=== PATIENT | female | born 1960 | race Caucasian/White ===

== ENCOUNTER 2016-03-03 14:44 | Emergency (ER) | payer OTHER ==
[2016-03-03] MEDS ORDERED: UNASYN 1.5 GM VIAL As Ordered ONE (15:18)
[2016-03-03] MEDS ORDERED: MORPHINE 4 MG/ML 1ML SYRINGE As Ordered ONE (15:19)
[2016-03-03] MEDS ORDERED: ATENOLOL 25 MG TAB As Ordered ONE (15:19)
[2016-03-03] MEDS ORDERED: LISINOPRIL 10 MG TAB As Ordered ONE (15:19)
[2016-03-03] MEDS ORDERED: ONDANSETRON 4MG/2ML VIAL (J2405) As Ordered ONE (15:29)
[2016-03-03 15:31] LABS: BASO % 0.2 % (0.0-1.0); EOS # 0.2 K/mm3 (0.0-0.50); EOS % 1.4 % (0.0-3.0); LARGE UNSTAINED CELL # 0.1 K/mm3 (0.0-0.4); LARGE UNSTAINED CELL % 0.9 % (0.0-4.0); LYMPH # 1.3 K/mm3 (1.5-4.5); LYMPH % 12.1 % (24.0-44.0); MEAN CORPUSCULAR HEMOGLOBIN 32.2 pg (27.0-33.0); MEAN CORPUSCULAR HGB CONC 33.9 g/dl (32.0-36.5); MEAN CORPUSCULAR VOLUME 95.1 fl (80.0-96.0); MONO # 0.2 K/mm3 (0.0-0.8); MONO % 1.5 % (0.0-5.0); NEUTROPHILS # 9.3 K/mm3 (1.8-7.7); NEUTROPHILS % 83.8 % (36.0-66.0); PLATELET COUNT, AUTOMATED 317 k/mm3 (150-450); RED CELL DISTRIBUTION WIDTH 12.9 % (11.5-14.5); WHITE BLOOD COUNT 11.1 K/mm3 (4.0-10.0)
[2016-03-03 15:44] LABS: ANION GAP 13 MEQ/L (8-16); BLOOD UREA NITROGEN 8 MG/DL (7-18); CALCIUM LEVEL 9.9 MG/DL (8.5-10.1); CARBON DIOXIDE LEVEL 27 MEQ/L (21-32); CHLORIDE LEVEL 99 MEQ/L (98-107); CREATININE FOR GFR 0.84 MG/DL (0.55-1.02); GLOMERULAR FILTRATION RATE > 60.0 (>51); GLUCOSE, FASTING 125 MG/DL (70-105); POTASSIUM SERUM 3.5 MEQ/L (3.5-5.1); SODIUM LEVEL 139 MEQ/L (136-145)
[2016-03-03] MEDS ORDERED: ISOVUE-370 76% 100ML VIAL (Q9967) As Ordered ONE (15:51)
[2016-03-03 16:11] LABS: ERYTHROCYTE SEDIMENTATION RATE 26 mm/hr (0-30)
--- NOTE | 2016-03-03 16:45 | EDDOCDS ---
Nurse's Notes [facility] Name: Nicole Engel Age: 55 yrs Sex: Female : 1960 Arrival Date: 03/03/2016 Time: 14:44 Bed I2 / M2 Private MD: No Pcp Diagnosis: Periapical abscess without sinus-phlegmon left mandible, widespread dental caries Presentation: 03/03 14:48 Presenting complaint: Patient states: dental infection and has been ongoing for 2 hs1 weeks. Pt at [facility] for teeth removal and was sent here because they stated her blood pressure was too high. Patient states she was also sent here for antibiotics. Adult Sepsis Screening: The patient does not have new or worsening altered mentation. Patient's respiratory rate is less than 22. Systolic blood pressure is greater than 100. Patient has a qSOFA score of 0- Negative Sepsis Screen. Suicide/Homicide risk assessment- the patient denies having any suicidal and/or homicidal ideations and does not present with any other emotional, behavioral or mental health complaints. Status: Patient is not a professional services manager or dependent. Transition of care: patient was received from [facility] . 14:48 Acuity: JAZMIN Level 3 hs1 14:48 Method Of Arrival: Walkin/Carried/Asstd hs1 Triage Assessment: 14:52 General: Appears in no apparent distress, Behavior is appropriate for age, cooperative. hs1 Pain: Location: mouth Pain currently is 10 out of 10 on a pain scale. Quality of pain is described as throbbing. Respiratory: Airway is patent Respiratory effort is even, unlabored. 14:53 Pt Declines HIV testing. hs1 Historical: - Allergies: No known drug Allergies; - Home Meds: 1. lisinopril 10 mg Oral tab 1 tab once daily (Last dose: 03/02/2016) 2. atenolol 25 mg Oral tab 1 tab once daily (Last dose: 03/02/2016) - PMHx: Hypertension; - PSHx: none; - Social history: Smoking status: Patient states was never smoker of tobacco. No barriers to communication noted, The patient speaks fluent [place] Islander, Speaks appropriately for age. - Family history: Not pertinent. - : The pt / caregiver states he / she is not on anticoagulants. Home medication list is obtained from the patient. - Exposure Risk Screening:: None identified. Screenin:54 Screening information is obtained from the patient. Fall risk: No risks identified. hs1 Assistance ADL's: requires no assistance with activities of daily living. Abuse/DV Screen: The patient / caregiver reports he/she is: not in a situation that causes fear, pain or injury. Nutritional screening: No deficits noted. Advance Directives: There is no active DNR order. home support is adequate. Assessment: 15:32 General: Appears in no apparent distress, comfortable, Behavior is appropriate for age, jmb cooperative. Pain: Location: mouth Pain currently is 10 out of 10 on a pain scale. Neurological: Level of Consciousness is awake, alert, obeys commands, Oriented to person, place, time, Bioinformatics Analyst are equal bilaterally Speech is normal, Facial symmetry appears normal. Cardiovascular: Capillary refill < 3 seconds Heart tones present Pulses are all present. Respiratory: Airway is patent Respiratory effort is even, unlabored, Respiratory pattern is regular, symmetrical, Breath sounds are clear bilaterally. GI: Abdomen is non- distended Bowel sounds present X 4 quads. Abd is soft X 4 quads. Derm: Skin is normal. Musculoskeletal: Range of motion intact in all extremities. 16:20 General: Appears in no apparent distress, Behavior is cooperative. Neurological: No mcp deficits noted. Respiratory: Airway is patent Respiratory effort is even, unlabored. Derm: Skin is pink, warm & dry. Vital Signs: 14:45 BP 188 / 114; Pulse 120; Resp 18 S; Temp 97.3(O); Pulse Ox 95% on R/A; Weight 81.65 kg dd6 (R); Height 5 ft. 4 in. (162.56 cm) (R); 16:00 Pain 4/10; mcp 16:26 BP 167 / 98; Pulse 98; Resp 18; Temp 98.9; Pulse Ox 98% ; Pain 5/10; jam1 14:45 Body Mass Index 30.90 (81.65 kg, 162.56 cm) dd6 Vitals: 14:45 Log In Time: March 03, 2016 at 14:43. dd6 ED Course: 14:45 Patient visited by Mikael Quintana PCA. dd6 14:45 No Pcp is Private Physician. dd6 14:45 Patient moved to Waiting dd6 14:46 Patient moved to Pre RCE dd6 14:50 Triage Initiated hs1 14:54 Patient moved to Triage 3 hs1 14:55 Donovan Ojeda PA-C is PHCP. ar2 14:55 Elisha Yousif MD is Attending Physician. ar2 14:55 Patient visited by Donovan Ojeda PA-C. ar2 15:04 Patient moved to I2 / M2 ms18 15:16 CBC with Diff Sent. jmb 15:16 MED Profile Sent. jmb 15:16 Sed Rate Sent. jmb 15:16 CRP Sent. jmb 15:32 The patient / caregiver is instructed regarding the plan of care and ED course. jmb 15:32 Inserted saline lock: 20 gauge in right antecubital area and blood collected. The jmb patient tolerated the procedure well. Labs drawn. (by ED staff). Sent per order to lab. 15:33 Patient visited by Wilber Montez RN. jmb 15:45 [facility] Payment Agreement was scanned into [employer] and attached to record. zo 16:25 Robby White MD is Referral Physician. ar2 16:42 Discontinued lock intact, bleeding controlled, pressure dressing applied, No mcp redness/swelling at site. No procedures done that require assistance. Administered Medications: 15:31 Drug: Ampicillin-Sulbactam Sodium 3 grams [ampicillin-sulbactam 1.5 gram solution for jmb injection] Route: IVPB; Infused Over: 30 mins; Site: right antecubital; 16:30 Follow up: IV Status: Completed infusion; IV Intake: 100ml mcp 15:31 Drug: NS 0.9% 1000 ml [sodium chloride 0.9 % intravenous solution] Route: IV; Rate: jmb bolus; Site: right antecubital; 16:39 Follow up: IV Status: Infusion discontinued; IV Intake: 900ml mcp 15:31 Drug: Lisinopril 10 mg [lisinopril 10 mg tablet (1 tabs)] Route: PO; jmb 15:31 Drug: Atenolol 25 mg [atenolol 25 mg tablet (1 tabs)] Route: PO; jmb 15:31 Drug: morphine 4 mg [morphine 4 mg/mL intravenous cartridge (1 mL)] Route: IVP; Site: jmb right antecubital; 16:00 Follow up: Pain 4/10 Adult; Response: Pain is decreased mcp 15:31 Drug: Ondansetron 4 mg [ondansetron HCl 2 mg/mL intravenous solution (2 mL)] Route: jmb IVP; Site: right antecubital; Intake: 16:30 IV: 100.00ml; Total: 100.00ml. mcp 16:39 IV: 900.00ml; Total: 1000.00ml. mcp Order Results: Lab Order: CBC with Diff; SPEC'M 03/03/16 15:14 Test: WHITE BLOOD COUNT; Value: 11.1; Range: 4.0-10.0; Abnormal: Above high normal; Units: K/mm3; Status: F Test: RED BLOOD COUNT; Value: 4.51; Range: 4.00-5.40; Units: M/mm3; Status: F Test: HEMOGLOBIN; Value: 14.5; Range: 12.0-16.0; Units: g/dl; Status: F Test: HEMATOCRIT; Value: 42.9; Range: 36.0-47.0; Units: %; Status: F Test: MEAN CORPUSCULAR VOLUME; Value: 95.1; Range: 80.0-96.0; Units: fl; Status: F Test: MEAN CORPUSCULAR HEMOGLOBIN; Value: 32.2; Range: 27.0-33.0; Units: pg; Status: F Test: MEAN CORPUSCULAR HGB CONC; Value: 33.9; Range: 32.0-36.5; Units: g/dl; Status: F Test: RED CELL DISTRIBUTION WIDTH; Value: 12.9; Range: 11.5-14.5; Units: %; Status: F Test: PLATELET COUNT, AUTOMATED; Value: 317; Range: 150-450; Units: k/mm3; Status: F Test: NEUTROPHILS %; Value: 83.8; Range: 36.0-66.0; Abnormal: Above high normal; Units: %; Status: F Test: LYMPH %; Value: 12.1; Range: 24.0-44.0; Abnormal: Below low normal; Units: %; Status: F Test: MONO %; Value: 1.5; Range: 0.0-5.0; Units: %; Status: F Test: EOS %; Value: 1.4; Range: 0.0-3.0; Units: %; Status: F Test: BASO %; Value: 0.2; Range: 0.0-1.0; Units: %; Status: F Test: LARGE UNSTAINED CELL %; Value: 0.9; Range: 0.0-4.0; Units: %; Status: F Test: NEUTROPHILS #; Value: 9.3; Range: 1.8-7.7; Abnormal: Above high normal; Units: K/mm3; Status: F Test: LYMPH #; Value: 1.3; Range: 1.5-4.5; Abnormal: Below low normal; Units: K/mm3; Status: F Test: MONO #; Value: 0.2; Range: 0.0-0.8; Units: K/mm3; Status: F Test: EOS #; Value: 0.2; Range: 0.0-0.50; Units: K/mm3; Status: F Test: BASO #; Value: 0.0; Range: 0.0-0.2; Units: K/mm3; Status: F Test: LARGE UNSTAINED CELL #; Value: 0.1; Range: 0.0-0.4; Units: K/mm3; Status: F Lab Order: [facility] Profile; SPEC'M 03/03/16 15:14 Test: GLUCOSE, FASTING; Value: 125; Range: 70-105; Abnormal: Above high normal; Units: MG/DL; Status: F Test: BLOOD UREA NITROGEN; Value: 8; Range: 7-18; Units: MG/DL; Status: F Test: CREATININE FOR GFR; Value: 0.84; Range: 0.55-1.02; Units: MG/DL; Status: F Test: GLOMERULAR FILTRATION RATE; Value: > 60.0; Range: >51; Status: F Test: SODIUM LEVEL; Value: 139; Range: 136-145; Units: MEQ/L; Status: F Test: POTASSIUM SERUM; Value: 3.5; Range: 3.5-5.1; Units: MEQ/L; Status: F Test: CHLORIDE LEVEL; Value: 99; Range: 98-107; Units: MEQ/L; Status: F Test: CARBON DIOXIDE LEVEL; Value: 27; Range: 21-32; Units: MEQ/L; Status: F Test: ANION GAP; Value: 13; Range: 8-16; Units: MEQ/L; Status: F Test: CALCIUM LEVEL; Value: 9.9; Range: 8.5-10.1; Units: MG/DL; Status: F Test Note: ; Units are mL/min/1.73 m2 Chronic Kidney Disease Staging per NKF: Stage I & II GFR >=60 Normal to Mildly Decreased Stage III GFR 30-59 Moderately Decreased Stage IV GFR 15-29 Severely Decreased Stage V GFR <15 Very Little GFR Left ESRD GFR <15 on SAMPLE [employer]ER ORIGINAL Lab Order: Sed Rate; SPEC'M 03/03/16 15:14 Test: ERYTHROCYTE SEDIMENTATION RATE; Value: 26; Range: 0-30; Units: mm/hr; Status: F Lab Order: CRP; SPEC'M 03/03/16 15:14 Test: C REACTIVE PROTEIN QUANTITATIV; Value: 1.44; Range: 0.00-0.30; Abnormal: Above high normal; Units: MG/DL; Status: F Outcome: 16:26 Discharge ordered by Provider. ar2 16:43 Discharge Assessment: patient administered narcotics - yes. Pt provided with safe mcp discharge. The following High Risk Discharge criteria are identified: None. Discharged to home ambulatory. Condition: stable. Discharge instructions given to patient, Instructed on discharge instructions, follow up and referral plans. medication usage, Demonstrated understanding of instructions, medications, Pt was receptive of discharge instructions/ teaching. Prescriptions given X 4. CT Study completed. Property sent home with patient. 16:44 Patient left the ED. [facility] Signatures: Brigette Walton RN RN mcp Murphy, Jane, CROSS TIE TURNER CROSS TIE TURNER jam1 Duy Hernandez Aaron, PA-C PADenver ar2 Mikael Quintana, CROSS TIE TURNER CROSS TIE TURNER dd6 Heike Mccartney RN RN hs1 Wilber Montez RN RN Kavya NatarajanRN RN ms18 MTDD
--- NOTE | 2016-03-03 16:45 | EDDOCDS ---
Physician Documentation [facility] Name: Nicole Engel Age: 55 yrs Sex: Female : 1960 Arrival Date: 03/03/2016 Time: 14:44 Bed I2 / M2 Private MD: No Pcp Disposition: 03/03/16 16:26 Discharged to Home/Self Care. Impression: Periapical abscess without sinus - phlegmon left mandible, widespread dental caries. - Condition is Stable. - Discharge Instructions: Dental Abscess, Dental Pain. - Prescriptions for Augmentin 875- 125 mg Oral Tablet - take 1 tablet by ORAL route every 12 hours for 10 days; 20 tablet. Ibuprofen 800 mg Oral Tablet - take 1 tablet by ORAL route every 8 hours As needed take with food; 30 tablet. Tylenol- Codeine #3 300-30 mg Oral Tablet - take 2 tablet by ORAL route every 6 hours As needed MDD: 4 tabs; 30 tablet. ZOFRAN ODT 4 mg - dissolve 1 tablet by ORAL route 4 times per day As needed do not chew, do not swallow whole; 10 tablet. - Medication Reconciliation, Local Pharmacy Hours form. - Follow up: Robby White MD; When: Call to arrange an appointment; Reason: Recheck today's complaints. Follow up: Emergency Department; When: As needed; Reason: Worsening of conditions. - Problem is new. - Symptoms have improved. Historical: - Allergies: No known drug Allergies; - Home Meds: 1. lisinopril 10 mg Oral tab 1 tab once daily (Last dose: 03/02/2016) 2. atenolol 25 mg Oral tab 1 tab once daily (Last dose: 03/02/2016) - PMHx: Hypertension; - PSHx: none; - Social history: Smoking status: Patient states was never smoker of tobacco. No barriers to communication noted, The patient speaks fluent Czech, Speaks appropriately for age. - Family history: Not pertinent. - : The pt / caregiver states he / she is not on anticoagulants. Home medication list is obtained from the patient. - Exposure Risk Screening:: None identified. Vital Signs: 03/03 14:45 BP 188 / 114; Pulse 120; Resp 18 S; Temp 97.3(O); Pulse Ox 95% on R/A; Weight 81.65 kg dd6 / 180.01 lbs (R); Height 5 ft. 4 in. (162.56 cm) (R); 16:00 Pain 4/10; mcp 16:26 BP 167 / 98; Pulse 98; Resp 18; Temp 98.9; Pulse Ox 98% ; Pain 5/10; jam1 14:45 Body Mass Index 30.90 (81.65 kg, 162.56 cm) dd6 MDM: 15:02 IV Saline Lock ordered. ar2 15:02 Ampicillin-Sulbactam Sodium 3 grams IVPB once over 30 mins; dilute in 100mL of NS or ar2 D5W ordered. 15:02 NS 0.9% 1000 ml IV at bolus once ordered. ar2 15:02 Lisinopril 10 mg PO once ordered. ar2 15:02 Atenolol 25 mg PO once ordered. ar2 15:04 CBC with Diff Ordered. EDMS 15:04 MED Profile Ordered. EDMS 15:04 Sed Rate Ordered. EDMS 15:04 CRP Ordered. EDMS 15:06 morphine 4 mg IVP once ordered. ar2 15:29 Ondansetron 4 mg IVP once ordered. ar2 15:42 Financial registration complete. zo 15:45 [facility] [place] Agreement was scanned into [employer] and attached to record. zo 15:48 CBC with Diff Reviewed. ar2 15:48 MED Profile Reviewed. ar2 15:48 CRP Reviewed. ar2 15:49 Vital Signs ordered. ar2 15:49 CT Neck With Contrast Ordered. EDMS Administered Medications: 15:31 Drug: Ampicillin-Sulbactam Sodium 3 grams [ampicillin-sulbactam 1.5 gram solution for jmb injection] Route: IVPB; Infused Over: 30 mins; Site: right antecubital; 16:30 Follow up: IV Status: Completed infusion; IV Intake: 100ml mcp 15:31 Drug: NS 0.9% 1000 ml [sodium chloride 0.9 % intravenous solution] Route: IV; Rate: jmb bolus; Site: right antecubital; 16:39 Follow up: IV Status: Infusion discontinued; IV Intake: 900ml mcp 15:31 Drug: Lisinopril 10 mg [lisinopril 10 mg tablet (1 tabs)] Route: PO; jmb 15:31 Drug: Atenolol 25 mg [atenolol 25 mg tablet (1 tabs)] Route: PO; jmb 15:31 Drug: morphine 4 mg [morphine 4 mg/mL intravenous cartridge (1 mL)] Route: IVP; Site: b right antecubital; 16:00 Follow up: Pain 4/10 Adult; Response: Pain is decreased [facility] 15:31 Drug: Ondansetron 4 mg [ondansetron HCl 2 mg/mL intravenous solution (2 mL)] Route: jmb IVP; Site: right antecubital; Signatures: Dispatcher [employer] Brigette Love RN RN [facility] Duy Hernandez Aaron, PA-C PA-Lucia ar2 Heike Mccartney RN RN hs1 Wilber Montez RN The chart was reviewed and I authenticate all verbal orders and agree with the evaluation and treatment provided.Attachments: 15:45 [facility] Payment Agreement zo MTDD
--- NOTE | 2016-03-03 18:04 | REP ---
CT NECK WITH CONTRAST: HISTORY: Rule out abscess. There is soft-tissue thickening along the buccal surface of the body and of the left mandible and symphysis . This represents a phlegmon. There is thickening of the left platysmal muscle and stranding in the overlying subcutaneous tissue consistent with edema. The naso-, sisi,- and hypopharynx, larynx and subglottic trachea are normal in appearance. The salivary and thyroid glands are normal. Small lymph nodes less than 1 cm in size are present in the internal jugular chains, posterior triangles, submandibular and submental areas. Minimal degenerative change is present in the cervical spine. The lung apices are clear. A punctate calcification is present in the sella turcica. Periapical lucency is present involving the second molar tooth of the left mandible. There are possible dental caries involving the first premolar and left second molar teeth of the left mandible and second premolar tooth of the right mandible. IMPRESSION: There is soft tissue thickening along the buccal surface of the body of the left mandible and mandibular symphysis consistent with a phlegmon. Signed by Anatoliy Vegas MD 03/04/2016 08:45 A
[2016-03-03] MEDS ORDERED: NORCO 5/325MG TABLET (BULK) As Ordered ONE (18:18)
--- NOTE | 2016-03-03 18:24 | EDDOCDS ---
Nurse's Notes [facility] Name: Nicole Engel Age: 55 yrs Sex: Female : 1960 Arrival Date: 03/03/2016 Time: 14:44 Bed PR Private MD: No Pcp Diagnosis: Periapical abscess without sinus-phlegmon left mandible, widespread dental caries Presentation: 03/03 14:48 Presenting complaint: Patient states: dental infection and has been ongoing for 2 hs1 weeks. Pt at [facility] for teeth removal and was sent here because they stated her blood pressure was too high. Patient states she was also sent here for antibiotics. Adult Sepsis Screening: The patient does not have new or worsening altered mentation. Patient's respiratory rate is less than 22. Systolic blood pressure is greater than 100. Patient has a qSOFA score of 0- Negative Sepsis Screen. Suicide/Homicide risk assessment- the patient denies having any suicidal and/or homicidal ideations and does not present with any other emotional, behavioral or mental health complaints. Status: Patient is not a maintenance service dispatcher or dependent. Transition of care: patient was received from Dental Office - [facility] . 14:48 Acuity: JAZMIN Level 3 hs1 14:48 Method Of Arrival: Walkin/Carried/Asstd hs1 Triage Assessment: 14:52 General: Appears in no apparent distress, Behavior is appropriate for age, cooperative. hs1 Pain: Location: mouth Pain currently is 10 out of 10 on a pain scale. Quality of pain is described as throbbing. Respiratory: Airway is patent Respiratory effort is even, unlabored. 14:53 Pt Declines HIV testing. hs1 Historical: - Allergies: No known drug Allergies; - Home Meds: 1. lisinopril 10 mg Oral tab 1 tab once daily (Last dose: 03/02/2016) 2. atenolol 25 mg Oral tab 1 tab once daily (Last dose: 03/02/2016) - PMHx: Hypertension; - PSHx: none; - Social history: Smoking status: Patient states was never smoker of tobacco. No barriers to communication noted, The patient speaks fluent Thai, Speaks appropriately for age. - Family history: Not pertinent. - : The pt / caregiver states he / she is not on anticoagulants. Home medication list is obtained from the patient. - Exposure Risk Screening:: None identified. Screenin:54 Screening information is obtained from the patient. Fall risk: No risks identified. hs1 Assistance ADL's: requires no assistance with activities of daily living. Abuse/DV Screen: The patient / caregiver reports he/she is: not in a situation that causes fear, pain or injury. Nutritional screening: No deficits noted. Advance Directives: There is no active DNR order. home support is adequate. Assessment: 15:32 General: Appears in no apparent distress, comfortable, Behavior is appropriate for age, jmb cooperative. Pain: Location: mouth Pain currently is 10 out of 10 on a pain scale. Neurological: Level of Consciousness is awake, alert, obeys commands, Oriented to person, place, time, Head Tennis Coach are equal bilaterally Speech is normal, Facial symmetry appears normal. Cardiovascular: Capillary refill < 3 seconds Heart tones present Pulses are all present. Respiratory: Airway is patent Respiratory effort is even, unlabored, Respiratory pattern is regular, symmetrical, Breath sounds are clear bilaterally. GI: Abdomen is non- distended Bowel sounds present X 4 quads. Abd is soft X 4 quads. Derm: Skin is normal. Musculoskeletal: Range of motion intact in all extremities. 16:20 General: Appears in no apparent distress, Behavior is cooperative. Neurological: No mcp deficits noted. Respiratory: Airway is patent Respiratory effort is even, unlabored. Derm: Skin is pink, warm & dry. Vital Signs: 14:45 BP 188 / 114; Pulse 120; Resp 18 S; Temp 97.3(O); Pulse Ox 95% on R/A; Weight 81.65 kg dd6 (R); Height 5 ft. 4 in. (162.56 cm) (R); 16:00 Pain 4/10; mcp 16:26 BP 167 / 98; Pulse 98; Resp 18; Temp 98.9; Pulse Ox 98% ; Pain 5/10; jam1 14:45 Body Mass Index 30.90 (81.65 kg, 162.56 cm) dd6 Vitals: 14:45 Log In Time: March 03, 2016 at 14:43. dd6 ED Course: 14:45 Patient visited by Mikael Quintana PCA. dd6 14:45 No Pcp is Private Physician. dd6 14:45 Patient moved to Waiting dd6 14:46 Patient moved to Pre RCE dd6 14:50 Triage Initiated hs1 14:54 Patient moved to Triage 3 hs1 14:55 Donovan Ojeda PA-C is PHCP. ar2 14:55 Elisha Yousif MD is Attending Physician. ar2 14:55 Patient visited by Donovan Ojeda PA-C. ar2 15:04 Patient moved to I2 / M2 ms18 15:16 CBC with Diff Sent. jmb 15:16 MED Profile Sent. jmb 15:16 Sed Rate Sent. jmb 15:16 CRP Sent. jmb 15:32 The patient / caregiver is instructed regarding the plan of care and ED course. jmb 15:32 Inserted saline lock: 20 gauge in right antecubital area and blood collected. The jmb patient tolerated the procedure well. Labs drawn. (by ED staff). Sent per order to lab. 15:33 Patient visited by Wilber Montez RN. jmb 15:45 [facility] Payment Agreement was scanned into [employer] and attached to record. zo 16:25 Robby White MD is Referral Physician. ar2 16:42 Discontinued lock intact, bleeding controlled, pressure dressing applied, No mcp redness/swelling at site. No procedures done that require assistance. 18:07 Patient moved to PR1 / 25 ms18 18:19 CT Neck With Contrast Returned. EDMS Administered Medications: 15:31 Drug: Ampicillin-Sulbactam Sodium 3 grams [ampicillin-sulbactam 1.5 gram solution for jmb injection] Route: IVPB; Infused Over: 30 mins; Site: right antecubital; 16:30 Follow up: IV Status: Completed infusion; IV Intake: 100ml mcp 15:31 Drug: NS 0.9% 1000 ml [sodium chloride 0.9 % intravenous solution] Route: IV; Rate: jmb bolus; Site: right antecubital; 16:39 Follow up: IV Status: Infusion discontinued; IV Intake: 900ml mcp 15:31 Drug: Lisinopril 10 mg [lisinopril 10 mg tablet (1 tabs)] Route: PO; jmb 15:31 Drug: Atenolol 25 mg [atenolol 25 mg tablet (1 tabs)] Route: PO; jmb 15:31 Drug: morphine 4 mg [morphine 4 mg/mL intravenous cartridge (1 mL)] Route: IVP; Site: [facility] right antecubital; 16:00 Follow up: Pain 06/01 Adult; Response: Pain is decreased mcp 15:31 Drug: Ondansetron 4 mg [ondansetron HCl 2 mg/mL intravenous solution (2 mL)] Route: jmb IVP; Site: right antecubital; 18:21 Drug: HYDROcodone-acetaminophen 4 pack- 1 packets [hydrocodone 5 mg-acetaminophen 325 ms18 mg tablet (1 tabs)] {Co-Signature: dwg (Jan Cadena RN).} Route: PO; Intake: 16:30 IV: 100.00ml; Total: 100.00ml. mcp 16:39 IV: 900.00ml; Total: 1000.00ml. mcp Order Results: Lab Order: CBC with Diff; SPEC'M 03/03/16 15:14 Test: WHITE BLOOD COUNT; Value: 11.1; Range: 4.0-10.0; Abnormal: Above high normal; Units: K/mm3; Status: F Test: RED BLOOD COUNT; Value: 4.51; Range: 4.00-5.40; Units: M/mm3; Status: F Test: HEMOGLOBIN; Value: 14.5; Range: 12.0-16.0; Units: g/dl; Status: F Test: HEMATOCRIT; Value: 42.9; Range: 36.0-47.0; Units: %; Status: F Test: MEAN CORPUSCULAR VOLUME; Value: 95.1; Range: 80.0-96.0; Units: fl; Status: F Test: MEAN CORPUSCULAR HEMOGLOBIN; Value: 32.2; Range: 27.0-33.0; Units: pg; Status: F Test: MEAN CORPUSCULAR HGB CONC; Value: 33.9; Range: 32.0-36.5; Units: g/dl; Status: F Test: RED CELL DISTRIBUTION WIDTH; Value: 12.9; Range: 11.5-14.5; Units: %; Status: F Test: PLATELET COUNT, AUTOMATED; Value: 317; Range: 150-450; Units: k/mm3; Status: F Test: NEUTROPHILS %; Value: 83.8; Range: 36.0-66.0; Abnormal: Above high normal; Units: %; Status: F Test: LYMPH %; Value: 12.1; Range: 24.0-44.0; Abnormal: Below low normal; Units: %; Status: F Test: MONO %; Value: 1.5; Range: 0.0-5.0; Units: %; Status: F Test: EOS %; Value: 1.4; Range: 0.0-3.0; Units: %; Status: F Test: BASO %; Value: 0.2; Range: 0.0-1.0; Units: %; Status: F Test: LARGE UNSTAINED CELL %; Value: 0.9; Range: 0.0-4.0; Units: %; Status: F Test: NEUTROPHILS #; Value: 9.3; Range: 1.8-7.7; Abnormal: Above high normal; Units: K/mm3; Status: F Test: LYMPH #; Value: 1.3; Range: 1.5-4.5; Abnormal: Below low normal; Units: K/mm3; Status: F Test: MONO #; Value: 0.2; Range: 0.0-0.8; Units: K/mm3; Status: F Test: EOS #; Value: 0.2; Range: 0.0-0.50; Units: K/mm3; Status: F Test: BASO #; Value: 0.0; Range: 0.0-0.2; Units: K/mm3; Status: F Test: LARGE UNSTAINED CELL #; Value: 0.1; Range: 0.0-0.4; Units: K/mm3; Status: F Lab Order: [facility]; SPEC'M 03/03/16 15:14 Test: GLUCOSE, FASTING; Value: 125; Range: 70-105; Abnormal: Above high normal; Units: MG/DL; Status: F Test: BLOOD UREA NITROGEN; Value: 8; Range: 7-18; Units: MG/DL; Status: F Test: CREATININE FOR GFR; Value: 0.84; Range: 0.55-1.02; Units: MG/DL; Status: F Test: GLOMERULAR FILTRATION RATE; Value: > 60.0; Range: >51; Status: F Test: SODIUM LEVEL; Value: 139; Range: 136-145; Units: MEQ/L; Status: F Test: POTASSIUM SERUM; Value: 3.5; Range: 3.5-5.1; Units: MEQ/L; Status: F Test: CHLORIDE LEVEL; Value: 99; Range: 98-107; Units: MEQ/L; Status: F Test: CARBON DIOXIDE LEVEL; Value: 27; Range: 21-32; Units: MEQ/L; Status: F Test: ANION GAP; Value: 13; Range: 8-16; Units: MEQ/L; Status: F Test: CALCIUM LEVEL; Value: 9.9; Range: 8.5-10.1; Units: MG/DL; Status: F Test Note: ; Units are mL/min/1.73 m2 Chronic Kidney Disease Staging per NKF: Stage I & II GFR >=60 Normal to Mildly Decreased Stage III GFR 30-59 Moderately Decreased Stage IV GFR 15-29 Severely Decreased Stage V GFR <15 Very Little GFR Left ESRD GFR <15 on DRYING MACHINE [employer]PERATOR [employer]NS Lab Order: Sed Rate; SPEC'M 03/03/16 15:14 Test: ERYTHROCYTE SEDIMENTATION RATE; Value: 26; Range: 0-30; Units: mm/hr; Status: F Lab Order: CRP; SPEC'M 03/03/16 15:14 Test: C REACTIVE PROTEIN QUANTITATIV; Value: 1.44; Range: 0.00-0.30; Abnormal: Above high normal; Units: MG/DL; Status: F Radiology Order: CT Neck With Contrast Test: CT Neck With Contrast REASON FOR EXAMINATION: r/o abscess left mandibular; CT NECK WITH CONTRAST:; ; HISTORY: Rule out abscess.; ; There is soft-tissue thickening along the buccal surface of the body and; symphysis of the left mandible. This represents a phlegmon. There is thickening; of the left platysmal muscle and stranding in the overlying subcutaneous tissue; consistent with edema. The naso-, sisi,- and hypopharynx, larynx and subglottic; trachea are normal in appearance. The salivary and thyroid glands are normal.; Small lymph nodes less than 1 cm in size are present in the internal jugular; chains, posterior triangles, submandibular and submental areas. Minimal; degenerative change is present in the cervical spine. The lung apices are clear.; A punctate calcification is present in the sella turcica. Periapical lucency is; present involving the second volar tooth of the left mandible. There are possible; dental caries involving the first premolar and left second molar tooth of the; left mandible and second premolar tooth of the right mandible.; ; IMPRESSION:; There is soft tissue thickening along the buccal surface of the body of the left; mandible and mandibular symphysis consistent with a phlegmon.; ; Unreviewed; Outcome: 16:26 Discharge ordered by Provider. ar2 16:43 Discharge Assessment: patient administered narcotics - yes. Pt provided with safe [facility] discharge. The following High Risk Discharge criteria are identified: None. Discharged to home ambulatory. Condition: stable. Discharge instructions given to patient, Instructed on discharge instructions, follow up and referral plans. medication usage, Demonstrated understanding of instructions, medications, Pt was receptive of discharge instructions/ teaching. Prescriptions given X 4. CT Study completed. Property sent home with patient. 16:44 Patient left the ED. [facility] 18:23 Patient left the ED. ms18 Signatures: Dispatcher [employer] EDMS Brigette Walton RN RN mcp Kelli Cavanaugh, HAND GRINDER HAND GRINDER jam1 Duy Hernandez Aaron, PA-C PADenver ar2 Mikael Quintana, HAND GRINDER HAND GRINDER dd6 Heike Mccartney RN RN hs1 Wilber Montez RN RN Kavya Natarajan RN RN ms18 Jan echeverria MTDD
--- NOTE | 2016-03-03 18:24 | EDDOCDS ---
Physician Documentation [facility] Name: Nicole Engel Age: 55 yrs Sex: Female : 1960 Arrival Date: 03/03/2016 Time: 14:44 Bed PR Private MD: No Pcp Disposition: 03/03/16 16:26 Discharged to Home/Self Care. Impression: Periapical abscess without sinus - phlegmon left mandible, widespread dental caries. - Condition is Stable. - Discharge Instructions: Dental Abscess, Dental Pain. - Prescriptions for Augmentin 875- 125 mg Oral Tablet - take 1 tablet by ORAL route every 12 hours for 10 days; 20 tablet. Ibuprofen 800 mg Oral Tablet - take 1 tablet by ORAL route every 8 hours As needed take with food; 30 tablet. Tylenol- Codeine #3 300-30 mg Oral Tablet - take 2 tablet by ORAL route every 6 hours As needed MDD: 4 tabs; 30 tablet. ZOFRAN ODT 4 mg - dissolve 1 tablet by ORAL route 4 times per day As needed do not chew, do not swallow whole; 10 tablet. - Medication Reconciliation, Local Pharmacy Hours form. - Follow up: Robby White MD; When: Call to arrange an appointment; Reason: Recheck today's complaints. Follow up: Emergency Department; When: As needed; Reason: Worsening of conditions. - Problem is new. - Symptoms have improved. Historical: - Allergies: No known drug Allergies; - Home Meds: 1. lisinopril 10 mg Oral tab 1 tab once daily (Last dose: 03/02/2016) 2. atenolol 25 mg Oral tab 1 tab once daily (Last dose: 03/02/2016) - PMHx: Hypertension; - PSHx: none; - Social history: Smoking status: Patient states was never smoker of tobacco. No barriers to communication noted, The patient speaks fluent Pashto, Speaks appropriately for age. - Family history: Not pertinent. - : The pt / caregiver states he / she is not on anticoagulants. Home medication list is obtained from the patient. - Exposure Risk Screening:: None identified. Vital Signs: 03/03 14:45 BP 188 / 114; Pulse 120; Resp 18 S; Temp 97.3(O); Pulse Ox 95% on R/A; Weight 81.65 kg dd6 / 180.01 lbs (R); Height 5 ft. 4 in. (162.56 cm) (R); 16:00 Pain 4/10; mcp 16:26 BP 167 / 98; Pulse 98; Resp 18; Temp 98.9; Pulse Ox 98% ; Pain 5/10; jam1 14:45 Body Mass Index 30.90 (81.65 kg, 162.56 cm) dd6 MDM: 15:02 IV Saline Lock ordered. ar2 15:02 Ampicillin-Sulbactam Sodium 3 grams IVPB once over 30 mins; dilute in 100mL of NS or ar2 D5W ordered. 15:02 NS 0.9% 1000 ml IV at bolus once ordered. ar2 15:02 Lisinopril 10 mg PO once ordered. ar2 15:02 Atenolol 25 mg PO once ordered. ar2 15:04 CBC with Diff Ordered. EDMS 15:04 MED Profile Ordered. EDMS 15:04 Sed Rate Ordered. EDMS 15:04 CRP Ordered. EDMS 15:06 morphine 4 mg IVP once ordered. ar2 15:29 Ondansetron 4 mg IVP once ordered. ar2 15:42 Financial registration complete. zo 15:45 [facility] Payment Agreement was scanned into [email or web address] and attached to record. zo 15:48 CBC with Diff Reviewed. ar2 15:48 MED Profile Reviewed. ar2 15:48 CRP Reviewed. ar2 15:49 Vital Signs ordered. ar2 15:49 CT Neck With Contrast Ordered. EDMS 18:19 HYDROcodone-acetaminophen 4 pack- 5 mg-325 mg 1 packets PO Per package directions; ar2 Dispense with patient. 1 po q4h prn for pain ordered. Administered Medications: 15:31 Drug: Ampicillin-Sulbactam Sodium 3 grams [ampicillin-sulbactam 1.5 gram solution for jmb injection] Route: IVPB; Infused Over: 30 mins; Site: right antecubital; 16:30 Follow up: IV Status: Completed infusion; IV Intake: 100ml mcp 15:31 Drug: NS 0.9% 1000 ml [sodium chloride 0.9 % intravenous solution] Route: IV; Rate: jmb bolus; Site: right antecubital; 16:39 Follow up: IV Status: Infusion discontinued; IV Intake: 900ml mcp 15:31 Drug: Lisinopril 10 mg [lisinopril 10 mg tablet (1 tabs)] Route: PO; [facility] 15:31 Drug: Atenolol 25 mg [atenolol 25 mg tablet (1 tabs)] Route: PO; [facility] 15:31 Drug: morphine 4 mg [morphine 4 mg/mL intravenous cartridge (1 mL)] Route: IVP; Site: [facility] right antecubital; 16:00 Follow up: Pain 4/10 Adult; Response: Pain is decreased [facility] 15:31 Drug: Ondansetron 4 mg [ondansetron HCl 2 mg/mL intravenous solution (2 mL)] Route: [facility] IVP; Site: right antecubital; 18:21 Drug: HYDROcodone-acetaminophen 4 pack- 1 packets [hydrocodone 5 mg-acetaminophen 325 ms18 mg tablet (1 tabs)] {Co-Signature: dwg (Jan Cadena RN).} Route: PO; Signatures: Dispatcher [employer] Brigette Love RN RN [facility] Duy Hernandez Aaron, PA-C PADenver ar2 Heike Mccartney RN RN hs1 Kavya Sales RN RN ms18 Wilber Montez RN b Jan echeverria The chart was reviewed and I authenticate all verbal orders and agree with the evaluation and treatment provided.Attachments: 15:45 [facility] Payment Agreement zo MTDD
--- NOTE | 2016-03-05 19:24 | EDDOCDS ---
Physician Documentation [facility] Name: Nicole Engel Age: 55 yrs Sex: Female : 1960 Arrival Date: 03/03/2016 Time: 14:44 Bed PR Private MD: No Pcp Disposition: 03/03/16 16:26 Discharged to Home/Self Care. Impression: Periapical abscess without sinus - phlegmon left mandible, widespread dental caries. - Condition is Stable. - Discharge Instructions: Dental Abscess, Dental Pain. - Prescriptions for Augmentin 875- 125 mg Oral Tablet - take 1 tablet by ORAL route every 12 hours for 10 days; 20 tablet. Ibuprofen 800 mg Oral Tablet - take 1 tablet by ORAL route every 8 hours As needed take with food; 30 tablet. Tylenol- Codeine #3 300-30 mg Oral Tablet - take 2 tablet by ORAL route every 6 hours As needed MDD: 4 tabs; 30 tablet. ZOFRAN ODT 4 mg - dissolve 1 tablet by ORAL route 4 times per day As needed do not chew, do not swallow whole; 10 tablet. - Medication Reconciliation, Local Pharmacy Hours form. - Follow up: Robby White MD; When: Call to arrange an appointment; Reason: Recheck today's complaints. Follow up: Emergency Department; When: As needed; Reason: Worsening of conditions. - Problem is new. - Symptoms have improved. Historical: - Allergies: No known drug Allergies; - Home Meds: 1. lisinopril 10 mg Oral tab 1 tab once daily (Last dose: 03/02/2016) 2. atenolol 25 mg Oral tab 1 tab once daily (Last dose: 03/02/2016) - PMHx: Hypertension; - PSHx: none; - Social history: Smoking status: Patient states was never smoker of tobacco. No barriers to communication noted, The patient speaks fluent Setswana, Speaks appropriately for age. - Family history: Not pertinent. - : The pt / caregiver states he / she is not on anticoagulants. Home medication list is obtained from the patient. - Exposure Risk Screening:: None identified. Vital Signs: 03/03 14:45 BP 188 / 114; Pulse 120; Resp 18 S; Temp 97.3(O); Pulse Ox 95% on R/A; Weight 81.65 kg dd6 / 180.01 lbs (R); Height 5 ft. 4 in. (162.56 cm) (R); 16:00 Pain 4/10; mcp 16:26 BP 167 / 98; Pulse 98; Resp 18; Temp 98.9; Pulse Ox 98% ; Pain 5/10; jam1 14:45 Body Mass Index 30.90 (81.65 kg, 162.56 cm) dd6 MDM: 15:02 IV Saline Lock ordered. ar2 15:02 Ampicillin-Sulbactam Sodium 3 grams IVPB once over 30 mins; dilute in 100mL of NS or ar2 D5W ordered. 15:02 NS 0.9% 1000 ml IV at bolus once ordered. ar2 15:02 Lisinopril 10 mg PO once ordered. ar2 15:02 Atenolol 25 mg PO once ordered. ar2 15:04 CBC with Diff Ordered. EDMS 15:04 MED Profile Ordered. EDMS 15:04 Sed Rate Ordered. EDMS 15:04 CRP Ordered. EDMS 15:06 morphine 4 mg IVP once ordered. ar2 15:29 Ondansetron 4 mg IVP once ordered. ar2 15:42 Financial registration complete. zo 15:45 [facility] Payment Agreement was scanned into [employer] and attached to record. zo 15:48 CBC with Diff Reviewed. ar2 15:48 MED Profile Reviewed. ar2 15:48 CRP Reviewed. ar2 15:49 Vital Signs ordered. ar2 15:49 CT Neck With Contrast Ordered. EDMS 18:19 HYDROcodone-acetaminophen 4 pack- 5 mg-325 mg 1 packets PO Per package directions; ar2 Dispense with patient. 1 po q4h prn for pain ordered. 03/04 10:56 T-Sheet-- Draft Copy was scanned into [employer] and attached to record. gb 10:56 Radiology Report was scanned into [employer] and attached to record. gb Administered Medications: 03/03 15:31 Drug: Ampicillin-Sulbactam Sodium 3 grams [ampicillin-sulbactam 1.5 gram solution for jmb injection] Route: IVPB; Infused Over: 30 mins; Site: right antecubital; 16:30 Follow up: IV Status: Completed infusion; IV Intake: 100ml mcp 15:31 Drug: NS 0.9% 1000 ml [sodium chloride 0.9 % intravenous solution] Route: IV; Rate: jmb bolus; Site: right antecubital; 16:39 Follow up: IV Status: Infusion discontinued; IV Intake: 900ml [facility] 15:31 Drug: Lisinopril 10 mg [lisinopril 10 mg tablet (1 tabs)] Route: PO; [facility] 15:31 Drug: Atenolol 25 mg [atenolol 25 mg tablet (1 tabs)] Route: PO; [facility] 15:31 Drug: morphine 4 mg [morphine 4 mg/mL intravenous cartridge (1 mL)] Route: IVP; Site: [facility] right antecubital; 16:00 Follow up: Pain 4/10 Adult; Response: Pain is decreased [facility] 15:31 Drug: Ondansetron 4 mg [ondansetron HCl 2 mg/mL intravenous solution (2 mL)] Route: b IVP; Site: right antecubital; 18:21 Drug: HYDROcodone-acetaminophen 4 pack- 1 packets [hydrocodone 5 mg-acetaminophen 325 ms18 mg tablet (1 tabs)] {Co-Signature: dwg (Jan Cadena RN).} Route: PO; Signatures: Dispatcher [employer] Brigette Love RN RN [facility] [place], Reg Reg gb Duy Hernandez Aaron, PA-C PADenver ar2 Heike Mccartney RN RN hs1 Kavya Sales RN RN ms18 Wilber Montez RN, RN The chart was reviewed and I authenticate all verbal orders and agree with the evaluation and treatment provided.Attachments: 15:45 [facility] Payment Agreement zo 03/04 10:56 T-Sheet-- Draft Copy gb Chart Complete MTDD
--- NOTE | 2016-03-05 19:24 | EDDOCDS ---
Nurse's Notes [facility] Name: Nicole Engel Age: 55 yrs Sex: Female : 1960 Arrival Date: 03/03/2016 Time: 14:44 Bed PR Private MD: No Pcp Diagnosis: Periapical abscess without sinus-phlegmon left mandible, widespread dental caries Presentation: 03/03 14:48 Presenting complaint: Patient states: dental infection and has been ongoing for 2 hs1 weeks. Pt at [facility] for teeth removal and was sent here because they stated her blood pressure was too high. Patient states she was also sent here for antibiotics. Adult Sepsis Screening: The patient does not have new or worsening altered mentation. Patient's respiratory rate is less than 22. Systolic blood pressure is greater than 100. Patient has a qSOFA score of 0- Negative Sepsis Screen. Suicide/Homicide risk assessment- the patient denies having any suicidal and/or homicidal ideations and does not present with any other emotional, behavioral or mental health complaints. 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 Transition of care: patient was received from [facility] . 14:48 Acuity: JAZMIN Level 3 hs1 14:48 Method Of Arrival: Walkin/Carried/Asstd hs1 Triage Assessment: 14:52 General: Appears in no apparent distress, Behavior is appropriate for age, cooperative. hs1 Pain: Location: mouth Pain currently is 10 out of 10 on a pain scale. Quality of pain is described as throbbing. Respiratory: Airway is patent Respiratory effort is even, unlabored. 14:53 Pt Declines HIV testing. hs1 Historical: - Allergies: No known drug Allergies; - Home Meds: 1. lisinopril 10 mg Oral tab 1 tab once daily (Last dose: 03/02/2016) 2. atenolol 25 mg Oral tab 1 tab once daily (Last dose: 03/02/2016) - PMHx: Hypertension; - PSHx: none; - Social history: Smoking status: Patient states was never smoker of tobacco. No barriers to communication noted, The patient speaks fluent Belarusian, Speaks appropriately for age. - Family history: Not pertinent. - : The pt / caregiver states he / she is not on anticoagulants. Home medication list is obtained from the patient. - Exposure Risk Screening:: None identified. Screenin:54 Screening information is obtained from the patient. Fall risk: No risks identified. hs1 Assistance ADL's: requires no assistance with activities of daily living. Abuse/DV Screen: The patient / caregiver reports he/she is: not in a situation that causes fear, pain or injury. Nutritional screening: No deficits noted. Advance Directives: There is no active DNR order. home support is adequate. Assessment: 15:32 General: Appears in no apparent distress, comfortable, Behavior is appropriate for age, jmb cooperative. Pain: Location: mouth Pain currently is 10 out of 10 on a pain scale. Neurological: Level of Consciousness is awake, alert, obeys commands, Oriented to person, place, time, Stripper Cutter Machine are equal bilaterally Speech is normal, Facial symmetry appears normal. Cardiovascular: Capillary refill < 3 seconds Heart tones present Pulses are all present. Respiratory: Airway is patent Respiratory effort is even, unlabored, Respiratory pattern is regular, symmetrical, Breath sounds are clear bilaterally. GI: Abdomen is non- distended Bowel sounds present X 4 quads. Abd is soft X 4 quads. Derm: Skin is normal. Musculoskeletal: Range of motion intact in all extremities. 16:20 General: Appears in no apparent distress, Behavior is cooperative. Neurological: No mcp deficits noted. Respiratory: Airway is patent Respiratory effort is even, unlabored. Derm: Skin is pink, warm & dry. Vital Signs: 14:45 BP 188 / 114; Pulse 120; Resp 18 S; Temp 97.3(O); Pulse Ox 95% on R/A; Weight 81.65 kg dd6 (R); Height 5 ft. 4 in. (162.56 cm) (R); 16:00 Pain 4/10; mcp 16:26 BP 167 / 98; Pulse 98; Resp 18; Temp 98.9; Pulse Ox 98% ; Pain 5/10; jam1 14:45 Body Mass Index 30.90 (81.65 kg, 162.56 cm) dd6 Vitals: 14:45 Log In Time: March 03, 2016 at 14:43. dd6 ED Course: 14:45 Patient visited by Mikael Quintana PCA. dd6 14:45 No Pcp is Private Physician. dd6 14:45 Patient moved to Waiting dd6 14:46 Patient moved to Pre RCE dd6 14:50 Triage Initiated hs1 14:54 Patient moved to Triage 3 hs1 14:55 Donovan Ojeda PA-C is PHCP. ar2 14:55 Elisha Yousif MD is Attending Physician. ar2 14:55 Patient visited by Donovan Ojeda PA-C. ar2 15:04 Patient moved to I2 / M2 ms18 15:16 CBC with Diff Sent. jmb 15:16 MED Profile Sent. jmb 15:16 Sed Rate Sent. jmb 15:16 CRP Sent. jmb 15:32 The patient / caregiver is instructed regarding the plan of care and ED course. jmb 15:32 Inserted saline lock: 20 gauge in right antecubital area and blood collected. The jmb patient tolerated the procedure well. Labs drawn. (by ED staff). Sent per order to lab. 15:33 Patient visited by Wilber Montez RN. jmb 15:45 [facility] Payment Agreement was scanned into [employer] and attached to record. zo 16:25 Robby White MD is Referral Physician. ar2 16:42 Discontinued lock intact, bleeding controlled, pressure dressing applied, No mcp redness/swelling at site. No procedures done that require assistance. 18:07 Patient moved to PR1 / 25 ms18 18:19 CT Neck With Contrast Returned. EDMS 03/04 10:56 T-Sheet-- Draft Copy was scanned into [employer] and attached to record. gb 10:56 Radiology Report was scanned into [employer] and attached to record. gb Administered Medications: 03/03 15:31 Drug: Ampicillin-Sulbactam Sodium 3 grams [ampicillin-sulbactam 1.5 gram solution for jmb injection] Route: IVPB; Infused Over: 30 mins; Site: right antecubital; 16:30 Follow up: IV Status: Completed infusion; IV Intake: 100ml mcp 15:31 Drug: NS 0.9% 1000 ml [sodium chloride 0.9 % intravenous solution] Route: IV; Rate: jmb bolus; Site: right antecubital; 16:39 Follow up: IV Status: Infusion discontinued; IV Intake: 900ml mcp 15:31 Drug: Lisinopril 10 mg [lisinopril 10 mg tablet (1 tabs)] Route: PO; jmb 15:31 Drug: Atenolol 25 mg [atenolol 25 mg tablet (1 tabs)] Route: PO; [facility] 15:31 Drug: morphine 4 mg [morphine 4 mg/mL intravenous cartridge (1 mL)] Route: IVP; Site: [facility] right antecubital; 16:00 Follow up: Pain /10 Adult; Response: Pain is decreased [facility] 15:31 Drug: Ondansetron 4 mg [ondansetron HCl 2 mg/mL intravenous solution (2 mL)] Route: jmb IVP; Site: right antecubital; 18:21 Drug: HYDROcodone-acetaminophen 4 pack- 1 packets [hydrocodone 5 mg-acetaminophen 325 ms18 mg tablet (1 tabs)] {Co-Signature: [email or web address] (Jan Cadena RN).} Route: PO; Intake: 16:30 IV: 100.00ml; Total: 100.00ml. mcp 16:39 IV: 900.00ml; Total: 1000.00ml. mcp Order Results: Lab Order: CBC with Diff; SPEC'M 03/03/16 15:14 Test: WHITE BLOOD COUNT; Value: 11.1; Range: 4.0-10.0; Abnormal: Above high normal; Units: K/mm3; Status: F Test: RED BLOOD COUNT; Value: 4.51; Range: 4.00-5.40; Units: M/mm3; Status: F Test: HEMOGLOBIN; Value: 14.5; Range: 12.0-16.0; Units: g/dl; Status: F Test: HEMATOCRIT; Value: 42.9; Range: 36.0-47.0; Units: %; Status: F Test: MEAN CORPUSCULAR VOLUME; Value: 95.1; Range: 80.0-96.0; Units: fl; Status: F Test: MEAN CORPUSCULAR HEMOGLOBIN; Value: 32.2; Range: 27.0-33.0; Units: pg; Status: F Test: MEAN CORPUSCULAR HGB CONC; Value: 33.9; Range: 32.0-36.5; Units: g/dl; Status: F Test: RED CELL DISTRIBUTION WIDTH; Value: 12.9; Range: 11.5-14.5; Units: %; Status: F Test: PLATELET COUNT, AUTOMATED; Value: 317; Range: 150-450; Units: k/mm3; Status: F Test: NEUTROPHILS %; Value: 83.8; Range: 36.0-66.0; Abnormal: Above high normal; Units: %; Status: F Test: LYMPH %; Value: 12.1; Range: 24.0-44.0; Abnormal: Below low normal; Units: %; Status: F Test: MONO %; Value: 1.5; Range: 0.0-5.0; Units: %; Status: F Test: EOS %; Value: 1.4; Range: 0.0-3.0; Units: %; Status: F Test: BASO %; Value: 0.2; Range: 0.0-1.0; Units: %; Status: F Test: LARGE UNSTAINED CELL %; Value: 0.9; Range: 0.0-4.0; Units: %; Status: F Test: NEUTROPHILS #; Value: 9.3; Range: 1.8-7.7; Abnormal: Above high normal; Units: K/mm3; Status: F Test: LYMPH #; Value: 1.3; Range: 1.5-4.5; Abnormal: Below low normal; Units: K/mm3; Status: F Test: MONO #; Value: 0.2; Range: 0.0-0.8; Units: K/mm3; Status: F Test: EOS #; Value: 0.2; Range: 0.0-0.50; Units: K/mm3; Status: F Test: BASO #; Value: 0.0; Range: 0.0-0.2; Units: K/mm3; Status: F Test: LARGE UNSTAINED CELL #; Value: 0.1; Range: 0.0-0.4; Units: K/mm3; Status: F Lab Order: [facility]; SPEC'M 03/03/16 15:14 Test: GLUCOSE, FASTING; Value: 125; Range: 70-105; Abnormal: Above high normal; Units: MG/DL; Status: F Test: BLOOD UREA NITROGEN; Value: 8; Range: 7-18; Units: MG/DL; Status: F Test: CREATININE FOR GFR; Value: 0.84; Range: 0.55-1.02; Units: MG/DL; Status: F Test: GLOMERULAR FILTRATION RATE; Value: > 60.0; Range: >51; Status: F Test: SODIUM LEVEL; Value: 139; Range: 136-145; Units: MEQ/L; Status: F Test: POTASSIUM SERUM; Value: 3.5; Range: 3.5-5.1; Units: MEQ/L; Status: F Test: CHLORIDE LEVEL; Value: 99; Range: 98-107; Units: MEQ/L; Status: F Test: CARBON DIOXIDE LEVEL; Value: 27; Range: 21-32; Units: MEQ/L; Status: F Test: ANION GAP; Value: 13; Range: 8-16; Units: MEQ/L; Status: F Test: CALCIUM LEVEL; Value: 9.9; Range: 8.5-10.1; Units: MG/DL; Status: F Test Note: ; Units are mL/min/1.73 m2 Chronic Kidney Disease Staging per NKF: Stage I & II GFR >=60 Normal to Mildly Decreased Stage III GFR 30-59 Moderately Decreased Stage IV GFR 15-29 Severely Decreased Stage V GFR <15 Very Little GFR Left ESRD GFR <15 on NON PROFIT DIRECTOR Lab Order: Sed Rate; SPEC'M 03/03/16 15:14 Test: ERYTHROCYTE SEDIMENTATION RATE; Value: 26; Range: 0-30; Units: mm/hr; Status: F Lab Order: CRP; SPEC'M 03/03/16 15:14 Test: C REACTIVE PROTEIN QUANTITATIV; Value: 1.44; Range: 0.00-0.30; Abnormal: Above high normal; Units: MG/DL; Status: F Radiology Order: CT Neck With Contrast Test: CT Neck With Contrast REASON FOR EXAMINATION: r/o abscess left mandibular; CT NECK WITH CONTRAST:; ; HISTORY: Rule out abscess.; ; There is soft-tissue thickening along the buccal surface of the body and of the; left mandible and symphysis . This represents a phlegmon. There is thickening of; the left platysmal muscle and stranding in the overlying subcutaneous tissue; consistent with edema. The naso-, sisi,- and hypopharynx, larynx and subglottic; trachea are normal in appearance. The salivary and thyroid glands are normal.; Small lymph nodes less than 1 cm in size are present in the internal jugular; chains, posterior triangles, submandibular and submental areas. Minimal; degenerative change is present in the cervical spine. The lung apices are clear.; A punctate calcification is present in the sella turcica. Periapical lucency is; present involving the second molar tooth of the left mandible. There are; possible dental caries involving the first premolar and left second molar teeth; of the left mandible and second premolar tooth of the right mandible.; ; IMPRESSION:; ; There is soft tissue thickening along the buccal surface of the body of the left; mandible and mandibular symphysis consistent with a phlegmon.; ; ; Signed by; Anatoliy Vegas MD 03/04/2016 08:45 A; Outcome: 16:26 Discharge ordered by Provider. ar2 16:43 Discharge Assessment: patient administered narcotics - yes. Pt provided with safe [facility] discharge. The following High Risk Discharge criteria are identified: None. Discharged to home ambulatory. Condition: stable. Discharge instructions given to patient, Instructed on discharge instructions, follow up and referral plans. medication usage, Demonstrated understanding of instructions, medications, Pt was receptive of discharge instructions/ teaching. Prescriptions given X 4. CT Study completed. Property sent home with patient. 16:44 Patient left the ED. [facility] 18:23 Patient left the ED. ms18 Signatures: Dispatcher [employer] EDMS Brigette Walton, RN RN Kelli Cage, ATM MECHANIC ATM MECHANIC jam1 Virginie Park, [place] Reg Duy Mclain Aaron, PA-C PA-C ar2 Mikael Quintana, ATM MECHANIC ATM MECHANIC dd6 Heike Mccartney RN RN hs1 Wilber Montez RN RN Kavya Natarajan RN RN ms18 Jan echeverria Chart Complete MTDD
--- NOTE | 2016-03-05 19:24 | EDDOCDS ---
Physician Documentation [facility] Name: Nicole Engel Age: 55 yrs Sex: Female : 1960 Arrival Date: 03/03/2016 Time: 14:44 Bed PR Private MD: No Pcp Disposition: 03/03/16 16:26 Discharged to Home/Self Care. Impression: Periapical abscess without sinus - phlegmon left mandible, widespread dental caries. - Condition is Stable. - Discharge Instructions: Dental Abscess, Dental Pain. - Prescriptions for Augmentin 875- 125 mg Oral Tablet - take 1 tablet by ORAL route every 12 hours for 10 days; 20 tablet. Ibuprofen 800 mg Oral Tablet - take 1 tablet by ORAL route every 8 hours As needed take with food; 30 tablet. Tylenol- Codeine #3 300-30 mg Oral Tablet - take 2 tablet by ORAL route every 6 hours As needed MDD: 4 tabs; 30 tablet. ZOFRAN ODT 4 mg - dissolve 1 tablet by ORAL route 4 times per day As needed do not chew, do not swallow whole; 10 tablet. - Medication Reconciliation, Local Pharmacy Hours form. - Follow up: Robby White MD; When: Call to arrange an appointment; Reason: Recheck today's complaints. Follow up: Emergency Department; When: As needed; Reason: Worsening of conditions. - Problem is new. - Symptoms have improved. Historical: - Allergies: No known drug Allergies; - Home Meds: 1. lisinopril 10 mg Oral tab 1 tab once daily (Last dose: 03/02/2016) 2. atenolol 25 mg Oral tab 1 tab once daily (Last dose: 03/02/2016) - PMHx: Hypertension; - PSHx: none; - Social history: Smoking status: Patient states was never smoker of tobacco. No barriers to communication noted, The patient speaks fluent Croatian, Speaks appropriately for age. - Family history: Not pertinent. - : The pt / caregiver states he / she is not on anticoagulants. Home medication list is obtained from the patient. - Exposure Risk Screening:: None identified. Vital Signs: 03/03 14:45 BP 188 / 114; Pulse 120; Resp 18 S; Temp 97.3(O); Pulse Ox 95% on R/A; Weight 81.65 kg dd6 / 180.01 lbs (R); Height 5 ft. 4 in. (162.56 cm) (R); 16:00 Pain 4/10; mcp 16:26 BP 167 / 98; Pulse 98; Resp 18; Temp 98.9; Pulse Ox 98% ; Pain 5/10; jam1 14:45 Body Mass Index 30.90 (81.65 kg, 162.56 cm) dd6 MDM: 15:02 IV Saline Lock ordered. ar2 15:02 Ampicillin-Sulbactam Sodium 3 grams IVPB once over 30 mins; dilute in 100mL of NS or ar2 D5W ordered. 15:02 NS 0.9% 1000 ml IV at bolus once ordered. ar2 15:02 Lisinopril 10 mg PO once ordered. ar2 15:02 Atenolol 25 mg PO once ordered. ar2 15:04 CBC with Diff Ordered. EDMS 15:04 MED Profile Ordered. EDMS 15:04 Sed Rate Ordered. EDMS 15:04 CRP Ordered. EDMS 15:06 morphine 4 mg IVP once ordered. ar2 15:29 Ondansetron 4 mg IVP once ordered. ar2 15:42 Financial registration complete. zo 15:45 [facility] Payment Agreement was scanned into [employer] and attached to record. zo 15:48 CBC with Diff Reviewed. ar2 15:48 MED Profile Reviewed. ar2 15:48 CRP Reviewed. ar2 15:49 Vital Signs ordered. ar2 15:49 CT Neck With Contrast Ordered. EDMS 18:19 HYDROcodone-acetaminophen 4 pack- 5 mg-325 mg 1 packets PO Per package directions; ar2 Dispense with patient. 1 po q4h prn for pain ordered. 03/04 10:56 T-Sheet-- Draft Copy was scanned into [employer] and attached to record. gb 10:56 Radiology Report was scanned into [employer] and attached to record. gb Administered Medications: 03/03 15:31 Drug: Ampicillin-Sulbactam Sodium 3 grams [ampicillin-sulbactam 1.5 gram solution for jmb injection] Route: IVPB; Infused Over: 30 mins; Site: right antecubital; 16:30 Follow up: IV Status: Completed infusion; IV Intake: 100ml mcp 15:31 Drug: NS 0.9% 1000 ml [sodium chloride 0.9 % intravenous solution] Route: IV; Rate: jmb bolus; Site: right antecubital; 16:39 Follow up: IV Status: Infusion discontinued; IV Intake: 900ml [facility] 15:31 Drug: Lisinopril 10 mg [lisinopril 10 mg tablet (1 tabs)] Route: PO; [facility] 15:31 Drug: Atenolol 25 mg [atenolol 25 mg tablet (1 tabs)] Route: PO; [facility] 15:31 Drug: morphine 4 mg [morphine 4 mg/mL intravenous cartridge (1 mL)] Route: IVP; Site: [facility] right antecubital; 16:00 Follow up: Pain 4/10 Adult; Response: Pain is decreased [facility] 15:31 Drug: Ondansetron 4 mg [ondansetron HCl 2 mg/mL intravenous solution (2 mL)] Route: b IVP; Site: right antecubital; 18:21 Drug: HYDROcodone-acetaminophen 4 pack- 1 packets [hydrocodone 5 mg-acetaminophen 325 ms18 mg tablet (1 tabs)] {Co-Signature: dwg (Jan Cadena RN).} Route: PO; Signatures: Dispatcher [employer] Brigette Love RN RN [facility] Virginie Park, Reg Reg gb Duy Hernandez Aaron, PA-C PADenver ar2 Heike Mccartney RN RN hs1 Kavya Sales RN RN ms18 Wilber Montez RN, RN The chart was reviewed and I authenticate all verbal orders and agree with the evaluation and treatment provided.Attachments: 15:45 [facility] Payment Agreement zo 03/04 10:56 T-Sheet-- Draft Copy gb Chart Complete MTDD
== END 2016-03-03 18:23 | disposition home or self-care (01) ==
LOC: M ED 14:44
DX: K04.7 Periapical abscess without sinus (principal); K02.9 Dental caries, unspecified; I10 Essential (primary) hypertension; Z79.899 Other long term (current) drug therapy
CPT/HCPCS: 36415; 70491; 80048; 85025; 85652; 86140; 96365; 96375; 99284; J2405; Q9967

== ENCOUNTER 2016-03-30 11:14 | Emergency (ER) | payer OTHER ==
--- NOTE | 2016-03-30 12:32 | EDDOCDS ---
Physician Documentation [facility] Name: Nicole Engel Age: 55 yrs Sex: Female : 1960 Arrival Date: 03/30/2016 Time: 11:14 Bed TR7 Private MD: KRISTIN MAC Disposition: 03/30/16 12:21 Discharged to Home/Self Care. Impression: Atypical facial pain - prob dental abscess. - Condition is Stable. - Discharge Instructions: Dental Abscess. - Prescriptions for Clindamycin HCl 300 mg Oral Capsule - take 1 capsule by ORAL route every 6 hours; 40 capsule. Prednisone 20 mg Oral Tablet - take 1 tablet by ORAL route once daily for 5 days; 5 tablet. Hydrocodone- Acetaminophen 5-325 mg Oral Tablet - take 1 tablet by ORAL route every 6 hours As needed MDD: 4 tabs; 12 tablet. - Medication Reconciliation, Local Pharmacy Hours form. - Follow up: KRISTIN MAC; When: Call to arrange an appointment; Reason: Wound/Symptom Recheck, Recheck today's complaints, Worsening of conditions, Continuance of care. - Problem is an ongoing problem. - Symptoms are unchanged. - Notes: Call for follow up with the oral surgeon today. thanks. Historical: - Allergies: no known allergies; - Home Meds: 1. atenolol 25 mg Oral tab 1 tab once daily (Last dose: 03/30/2016 07:00) 2. lisinopril 10 mg Oral tab 1 tab once daily (Last dose: 03/30/2016 07:00) 3. hydroxyzine HCl 50 mg Oral tab nightly (Last dose: 03/29/2016 20:00) 4. fluoxetine 10 mg Oral cap daily (Last dose: 03/30/2016 07:00) 5. trazodone 50 mg Oral tab daily (Last dose: 03/29/2016 20:00) - PMHx: Hypertension; - PSHx: none; - Social history: Smoking status: Patient states was never smoker of tobacco. No barriers to communication noted, Speaks appropriately for age. - Family history: Not pertinent. - : The pt / caregiver states he / she is not on anticoagulants. Home medication list is obtained from the patient. - Exposure Risk Screening:: None identified. INSPECTOR AND TESTER: 03/30 12:28 LMP 03/30/2016 [id number] Vital Signs: 11:17 BP 139 / 79; Pulse 93; Resp 18; Temp 97.5(O); Pulse Ox 97% on R/A; Weight 79.38 kg / ct3 175 lbs (R); Height 5 ft. 0 in. (152.40 cm) (R); Pain 910; 11:17 Body Mass Index 34.18 (79.38 kg, 152.40 cm) ct3 Signatures: Justin Fong RN RN ml6 Alisson Moncada RN RN [id number] Carlos Alva, PA-C PA-C cc10 MTDD
--- NOTE | 2016-03-30 12:32 | EDDOCDS ---
Nurse's Notes [facility] Name: Nicole Engel Age: 55 yrs Sex: Female : 1960 Arrival Date: 03/30/2016 Time: 11:14 Bed TR7 Private MD: KRISTIN MAC Diagnosis: Atypical facial pain-prob dental abscess Presentation: 03/30 11:22 Presenting complaint: Patient states: states dental abscess, left upper jaw. Adult ml6 Sepsis Screening: The patient does not have new or worsening altered mentation. Patient's respiratory rate is less than 22. Systolic blood pressure is greater than 100. Patient has a qSOFA score of 0- Negative Sepsis Screen. Suicide/Homicide risk assessment- the patient denies having any suicidal and/or homicidal ideations and does not present with any other emotional, behavioral or mental health complaints. Status: Patient is not a manager of environmental services or dependent. Transition of care: patient was not received from another setting of care. 11:22 Acuity: JAZMIN Level 4 ml6 11:22 Method Of Arrival: Walkin/Carried/Asstd ml6 Triage Assessment: 11:26 General: Appears in no apparent distress, Behavior is appropriate for age, cooperative. ml6 Pain: Location: left cheek Pain currently is 6 out of 10 on a pain scale. HIV screening NA for this visit Offered previously. Neurological: No deficits noted. Cardiovascular: No deficits noted. Capillary refill < 3 seconds is brisk in bilateral fingers toes. Respiratory: No deficits noted. GI: No deficits noted. AUTO APPRENTICE MECHANIC: 12:28 LMP 03/30/2016 js13 Historical: - Allergies: no known allergies; - Home Meds: 1. atenolol 25 mg Oral tab 1 tab once daily (Last dose: 03/30/2016 07:00) 2. lisinopril 10 mg Oral tab 1 tab once daily (Last dose: 03/30/2016 07:00) 3. hydroxyzine HCl 50 mg Oral tab nightly (Last dose: 03/29/2016 20:00) 4. fluoxetine 10 mg Oral cap daily (Last dose: 03/30/2016 07:00) 5. trazodone 50 mg Oral tab daily (Last dose: 03/29/2016 20:00) - PMHx: Hypertension; - PSHx: none; - Social history: Smoking status: Patient states was never smoker of tobacco. No barriers to communication noted, Speaks appropriately for age. - Family history: Not pertinent. - : The pt / caregiver states he / she is not on anticoagulants. Home medication list is obtained from the patient. - Exposure Risk Screening:: None identified. Screenin:27 Screening information is obtained from the patient. Fall risk: No risks identified. js13 Assistance ADL's: requires no assistance with activities of daily living. Abuse/DV Screen: The patient / caregiver reports he/she is: not in a situation that causes fear, pain or injury. Nutritional screening: No deficits noted. Advance Directives: There is no active DNR order. home support is adequate. Assessment: 12:27 General: Appears in no apparent distress, Behavior is appropriate for age, cooperative. js13 Pain: Pain currently is 5 out of 10 on a pain scale. Neurological: Level of Consciousness is awake, alert. Respiratory: Airway is patent Respiratory effort is even, unlabored, Respiratory pattern is regular. Derm: Skin is pink, warm & dry. Vital Signs: 11:17 BP 139 / 79; Pulse 93; Resp 18; Temp 97.5(O); Pulse Ox 97% on R/A; Weight 79.38 kg (R); ct3 Height 5 ft. 0 in. (152.40 cm) (R); Pain 9/10; 11:17 Body Mass Index 34.18 (79.38 kg, 152.40 cm) ct3 Vitals: 11:17 Log In Time: March 30, 2016 at 11:15. ct3 ED Course: 11:15 Patient visited by Naila Wyatt PCA. ct3 11:15 Patient moved to Waiting ct3 11:16 KRISTIN MAC is Private Physician. ct3 11:19 Patient moved to Pre RCE ct3 11:23 Triage Initiated ml6 11:54 Patient moved to Triage 1 ar3 12:09 [facility] cc[facility] 12:09 Mando Lynne MD is Attending Physician. cc10 12:09 Patient visited by Carlos Alva PA-C. cc10 12:09 Patient visited by Carlos Alva PA-C. cc10 12:20 KRISTIN MAC is Referral Physician. cc10 12:27 The patient / caregiver is instructed regarding the plan of care and ED course. js13 12:27 No IV's were initiated during this patient's visit. No procedures done that require js13 assistance. 12:31 Patient moved to TR7 ar3 Order Results: There are currently no results for this order. Outcome: 12:21 Discharge ordered by Provider. cc10 12:27 Discharge Assessment: Patient awake, alert and oriented x 3. No cognitive and/or js13 functional deficits noted. Patient verbalized understanding of disposition instructions. patient administered narcotics - no. The following High Risk Discharge criteria are identified: None. Discharged to home ambulatory. Condition: stable. Discharge instructions given to patient, Instructed on discharge instructions, follow up and referral plans. medication usage, Demonstrated understanding of instructions, medications, Pt was receptive of discharge instructions/ teaching. Prescriptions given X 3. No special radiology studies were completed. Property :Personal belongings accompany Pt. 12:31 Patient left the ED. js13 Signatures: Justin Fong, RN RN ml6 Falguni Mcadams, PREPARER SAMPLES AND REPAIRS PREPARER SAMPLES AND REPAIRS ar3 Naila Wyatt, PREPARER SAMPLES AND REPAIRS PREPARER SAMPLES AND REPAIRS ct3 Alisson MoncadaRN RN js13 Carlos Alva, PA-C PA-C cc10 MTDD
--- NOTE | 2016-04-01 13:33 | EDDOCDS ---
Physician Documentation [facility] Name: Nicole Engel Age: 55 yrs Sex: Female : 1960 Arrival Date: 03/30/2016 Time: 11:14 Bed TR7 Private MD: KRISTIN MAC Disposition: 03/30/16 12:21 Discharged to Home/Self Care. Impression: Atypical facial pain - prob dental abscess. - Condition is Stable. - Discharge Instructions: Dental Abscess. - Prescriptions for Clindamycin HCl 300 mg Oral Capsule - take 1 capsule by ORAL route every 6 hours; 40 capsule. Prednisone 20 mg Oral Tablet - take 1 tablet by ORAL route once daily for 5 days; 5 tablet. Hydrocodone- Acetaminophen 5-325 mg Oral Tablet - take 1 tablet by ORAL route every 6 hours As needed MDD: 4 tabs; 12 tablet. - Medication Reconciliation, Local Pharmacy Hours form. - Follow up: KRISTIN MAC; When: Call to arrange an appointment; Reason: Wound/Symptom Recheck, Recheck today's complaints, Worsening of conditions, Continuance of care. - Problem is an ongoing problem. - Symptoms are unchanged. - Notes: Call for follow up with the oral surgeon today. thanks. Historical: - Allergies: no known allergies; - Home Meds: 1. atenolol 25 mg Oral tab 1 tab once daily (Last dose: 03/30/2016 07:00) 2. lisinopril 10 mg Oral tab 1 tab once daily (Last dose: 03/30/2016 07:00) 3. hydroxyzine HCl 50 mg Oral tab nightly (Last dose: 03/29/2016 20:00) 4. fluoxetine 10 mg Oral cap daily (Last dose: 03/30/2016 07:00) 5. trazodone 50 mg Oral tab daily (Last dose: 03/29/2016 20:00) - PMHx: Hypertension; - PSHx: none; - Social history: Smoking status: Patient states was never smoker of tobacco. No barriers to communication noted, Speaks appropriately for age. - Family history: Not pertinent. - : The pt / caregiver states he / she is not on anticoagulants. Home medication list is obtained from the patient. - Exposure Risk Screening:: None identified. 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 0 in. (152.40 cm) (R); Pain 9/10; 11:17 Body Mass Index 34.18 (79.38 kg, 152.40 cm) ct3 MDM: 12:36 [facility] [place] Agreement was scanned into [employer] and attached to record. jp5 12:36 Financial registration complete. jp5 15:52 T-Sheet-- Draft Copy was scanned into [employer] and attached to record. klr Signatures: Justin Fong RN RN ml6 Alissno MoncadaRN RN js13 Carlos Alva PA-C PA-C cc10 Jimbo Galan jp5 Shira Hawkins klr The chart was reviewed and I authenticate all verbal orders and agree with the evaluation and treatment provided.Attachments: 12:36 [facility] Payment Agreement 5 15:52 T-Sheet-- Draft Copy klr Chart Complete MTDD
--- NOTE | 2016-04-01 13:33 | EDDOCDS ---
Nurse's Notes [facility] Name: Nicole Engel Age: 55 yrs Sex: Female : 1960 Arrival Date: 03/30/2016 Time: 11:14 Bed TR7 Private MD: KRISTIN MAC Diagnosis: Atypical facial pain-prob dental abscess Presentation: 03/30 11:22 Presenting complaint: Patient states: states dental abscess, left upper jaw. Adult ml6 Sepsis Screening: The patient does not have new or worsening altered mentation. Patient's respiratory rate is less than 22. Systolic blood pressure is greater than 100. Patient has a qSOFA score of 0- Negative Sepsis Screen. Suicide/Homicide risk assessment- the patient denies having any suicidal and/or homicidal ideations and does not present with any other emotional, behavioral or mental health complaints. Status: Patient is not a food service tray attendant or dependent. Transition of care: patient was not received from another setting of care. 11:22 Acuity: JAZMIN Level 4 ml6 11:22 Method Of Arrival: Walkin/Carried/Asstd ml6 Triage Assessment: 11:26 General: Appears in no apparent distress, Behavior is appropriate for age, cooperative. ml6 Pain: Location: left cheek Pain currently is 6 out of 10 on a pain scale. HIV screening NA for this visit Offered previously. Neurological: No deficits noted. Cardiovascular: No deficits noted. Capillary refill < 3 seconds is brisk in bilateral fingers toes. Respiratory: No deficits noted. GI: No deficits noted. 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 atenolol 25 mg Oral tab 1 tab once daily (Last dose: 03/30/2016 07:00) 2. lisinopril 10 mg Oral tab 1 tab once daily (Last dose: 03/30/2016 07:00) 3. hydroxyzine HCl 50 mg Oral tab nightly (Last dose: 03/29/2016 20:00) 4. fluoxetine 10 mg Oral cap daily (Last dose: 03/30/2016 07:00) 5. trazodone 50 mg Oral tab daily (Last dose: 03/29/2016 20:00) - PMHx: Hypertension; - PSHx: none; - Social history: Smoking status: Patient states was never smoker of tobacco. No barriers to communication noted, Speaks appropriately for age. - Family history: Not pertinent. - : The pt / caregiver states he / she is not on anticoagulants. Home medication list is obtained from the patient. - Exposure Risk Screening:: None identified. Screenin:27 Screening information is obtained from the patient. Fall risk: No risks identified. js13 Assistance ADL's: requires no assistance with activities of daily living. Abuse/DV Screen: The patient / caregiver reports he/she is: not in a situation that causes fear, pain or injury. Nutritional screening: No deficits noted. Advance Directives: There is no active DNR order. home support is adequate. Assessment: 12:27 General: Appears in no apparent distress, Behavior is appropriate for age, cooperative. js13 Pain: Pain currently is 5 out of 10 on a pain scale. Neurological: Level of Consciousness is awake, alert. Respiratory: Airway is patent Respiratory effort is even, unlabored, Respiratory pattern is regular. Derm: Skin is pink, warm & dry. Vital Signs: 11:17 BP 139 / 79; Pulse 93; Resp 18; Temp 97.5(O); Pulse Ox 97% on R/A; Weight 79.38 kg (R); ct3 Height 5 ft. 0 in. (152.40 cm) (R); Pain 9/10; 11:17 Body Mass Index 34.18 (79.38 kg, 152.40 cm) ct3 Vitals: 11:17 Log In Time: March 30, 2016 at 11:15. ct3 ED Course: 11:15 Patient visited by Naila Wyatt PCA. ct3 11:15 Patient moved to Waiting ct3 11:16 KRISTIN MAC is Private Physician. ct3 11:19 Patient moved to Pre RCE ct3 11:23 Triage Initiated ml6 11:54 Patient moved to Triage 1 ar3 12:09 [facility] cc[facility] 12:09 Mando Lynne MD is Attending Physician. cc10 12:09 Patient visited by Carlos Alva PA-C. cc10 12:09 Patient visited by Carlos Alva PA-C. cc10 12:20 KRISTIN MAC is Referral Physician. cc10 12:27 The patient / caregiver is instructed regarding the plan of care and ED course. js13 12:27 No IV's were initiated during this patient's visit. No procedures done that require js13 assistance. 12:31 Patient moved to TR7 ar3 12:36 [facility] INCLUDES THE [facility] Payment Agreement was scanned into [employer] and attached to record. jp5 15:19 Patient name changed from Nicole\S\M\S\Maren\S\ to Nicole\S\Marchel\S\Maren. EDMS 15:52 T-Sheet-- Draft Copy was scanned into [employer] and attached to record. klr Order Results: There are currently no results for this order. Outcome: 12:21 Discharge ordered by Provider. cc10 12:27 Discharge Assessment: Patient awake, alert and oriented x 3. No cognitive and/or js13 functional deficits noted. Patient verbalized understanding of disposition instructions. patient administered narcotics - no. The following High Risk Discharge criteria are identified: None. Discharged to home ambulatory. Condition: stable. Discharge instructions given to patient, Instructed on discharge instructions, follow up and referral plans. medication usage, Demonstrated understanding of instructions, medications, Pt was receptive of discharge instructions/ teaching. Prescriptions given X 3. No special radiology studies were completed. Property :Personal belongings accompany Pt. 12:31 Patient left the ED. js13 Signatures: Dispatcher [facility] Justin Fong, RN RN ml6 Falguni Mcadams, FIELD CROP FARMER FIELD CROP FARMER ar3 Naila Wyatt, FIELD CROP FARMER FIELD CROP FARMER ct3 Alisson Monacda RN RN js13 Carlos Alva, PADenver PA-C cc10 Jimbo Galan jp5 Shira Hawkins klr Chart Complete MTDD
--- NOTE | 2016-04-01 13:33 | EDDOCDS ---
Physician Documentation [facility] Name: Nicole Engel Age: 55 yrs Sex: Female : 1960 Arrival Date: 03/30/2016 Time: 11:14 Bed TR7 Private MD: KRISTIN MAC Disposition: 03/30/16 12:21 Discharged to Home/Self Care. Impression: Atypical facial pain - prob dental abscess. - Condition is Stable. - Discharge Instructions: Dental Abscess. - Prescriptions for Clindamycin HCl 300 mg Oral Capsule - take 1 capsule by ORAL route every 6 hours; 40 capsule. Prednisone 20 mg Oral Tablet - take 1 tablet by ORAL route once daily for 5 days; 5 tablet. Hydrocodone- Acetaminophen 5-325 mg Oral Tablet - take 1 tablet by ORAL route every 6 hours As needed MDD: 4 tabs; 12 tablet. - Medication Reconciliation, Local Pharmacy Hours form. - Follow up: KRISTIN MAC; When: Call to arrange an appointment; Reason: Wound/Symptom Recheck, Recheck today's complaints, Worsening of conditions, Continuance of care. - Problem is an ongoing problem. - Symptoms are unchanged. - Notes: Call for follow up with the oral surgeon today. thanks. Historical: - Allergies: no known allergies; - Home Meds: 1. atenolol 25 mg Oral tab 1 tab once daily (Last dose: 03/30/2016 07:00) 2. lisinopril 10 mg Oral tab 1 tab once daily (Last dose: 03/30/2016 07:00) 3. hydroxyzine HCl 50 mg Oral tab nightly (Last dose: 03/29/2016 20:00) 4. fluoxetine 10 mg Oral cap daily (Last dose: 03/30/2016 07:00) 5. trazodone 50 mg Oral tab daily (Last dose: 03/29/2016 20:00) - PMHx: Hypertension; - PSHx: none; - Social history: Smoking status: Patient states was never smoker of tobacco. No barriers to communication noted, Speaks appropriately for age. - Family history: Not pertinent. - : The pt / caregiver states he / she is not on anticoagulants. Home medication list is obtained from the patient. - Exposure Risk Screening:: None identified. CONGREGATIONAL CARE PASTOR: 03/30 12:28 LMP 03/30/2016 js13 Vital Signs: 11:17 BP 139 / 79; Pulse 93; Resp 18; Temp 97.5(O); Pulse Ox 97% on R/A; Weight 79.38 kg / ct3 175 lbs (R); Height 5 ft. 0 in. (152.40 cm) (R); Pain 9/10; 11:17 Body Mass Index 34.18 (79.38 kg, 152.40 cm) ct3 MDM: 12:36 [facility] [place] Agreement was scanned into [employer] and attached to record. jp5 12:36 Financial registration complete. jp5 15:52 T-Sheet-- Draft Copy was scanned into [employer] and attached to record. klr Signatures: Justin Fong RN RN ml6 Alisson MoncadaRN RN js13 Carlos Alva PA-C PA-C cc10 Jimbo Galan jp5 Shira Hawkins klr The chart was reviewed and I authenticate all verbal orders and agree with the evaluation and treatment provided.Attachments: 12:36 [facility] Payment Agreement 5 15:52 T-Sheet-- Draft Copy klr Chart Complete MTDD
== END 2016-03-30 12:31 | disposition home or self-care (01) ==
LOC: M ED 11:14
DX: G50.1 Atypical facial pain (principal); I10 Essential (primary) hypertension; Z79.899 Other long term (current) drug therapy

== ENCOUNTER 2016-04-24 14:36 | Emergency (ER) | payer OTHER ==
[~2016-04-24] VITALS: Ht 162.6 cm; Wt 79.4 kg
[2016-04-24] MEDS ORDERED: TRAZ100T4 PO (14:52)
[2016-04-24] MEDS ORDERED: AMLO2.5T PO (14:52)
[2016-04-24] MEDS ORDERED: NS 1,000 ML IV ONE (15:15)
[2016-04-24 15:42] LABS: BASO % 0.3 % (0.0-1.0); EOS # 0.1 K/mm3 (0.0-0.50); EOS % 1.9 % (0.0-3.0); LARGE UNSTAINED CELL # 0.2 K/mm3 (0.0-0.4); LARGE UNSTAINED CELL % 3.3 % (0.0-4.0); LYMPH # 2.2 K/mm3 (1.5-4.5); LYMPH % 48.7 % (24.0-44.0); MEAN CORPUSCULAR HEMOGLOBIN 31.2 pg (27.0-33.0); MEAN CORPUSCULAR HGB CONC 34.1 g/dl (32.0-36.5); MEAN CORPUSCULAR VOLUME 91.7 fl (80.0-96.0); MONO # 0.2 K/mm3 (0.0-0.8); MONO % 3.6 % (0.0-5.0); NEUTROPHILS # 1.9 K/mm3 (1.8-7.7); NEUTROPHILS % 42.2 % (36.0-66.0); PLATELET COUNT, AUTOMATED 335 k/mm3 (150-450); RED CELL DISTRIBUTION WIDTH 12.1 % (11.5-14.5); WHITE BLOOD COUNT 4.6 K/mm3 (4.0-10.0)
[2016-04-24 15:56] LABS: CONTROL LINE INT CTR LINE PRESENT; METHADONE URINE NEGATIVE (NEGATIVE); TRICYCLIC ANTIDEPRESS URINE NEGATIVE (NEGATIVE)
[2016-04-24 15:59] LABS: INR 0.95
--- NOTE | 2016-04-24 16:03 | REP ---
Chest x-ray: Portable single-view AP chest: History: CVA. Findings: EKG monitoring electrodes overlie the chest. Heart is not enlarged. The aorta is calcific and tortuous. Pulmonary vasculature is not increased. No significant bony abnormality is seen. Impression: No active disease. Signed by Sunil Copeland MD 04/24/2016 04:53 P
--- NOTE | 2016-04-24 16:07 | REP ---
CT Head without contrast HISTORY: Weakness COMPARISON: 05/14/2014 There is no intraparenchymal hemorrhage, acute infarct, mass or midline shift. The ventricular system and cortical sulci are dilated consistent with minimal volume loss. There is no extra cerebral collection. There is no fracture. The visualized sinuses are clear. IMPRESSION: Minimal volume loss. Signed by Anatoliy Vegas MD 04/24/2016 03:58 P
[2016-04-24 16:11] LABS: ALBUMIN 3.6 GM/DL (3.2-5.2); ALBUMIN/GLOBULIN RATIO 0.84 (1.00-1.93); ALKALINE PHOSPHATASE 159 U/L (45-117); ALT/SGPT 64 U/L (12-78); ANION GAP 12 MEQ/L (8-16); AST/SGOT 56 U/L (15-37); BILIRUBIN,DIRECT < 0.1 MG/DL (0.0-0.2); BILIRUBIN,TOTAL 0.1 MG/DL (0.2-1.0); BLOOD UREA NITROGEN 19 MG/DL (7-18); CALCIUM LEVEL 8.7 MG/DL (8.5-10.1); CARBON DIOXIDE LEVEL 27 MEQ/L (21-32); CHLORIDE LEVEL 108 MEQ/L (98-107); CREATININE FOR GFR 1.07 MG/DL (0.55-1.02); GLOMERULAR FILTRATION RATE 56.9 (>51); GLUCOSE, FASTING 98 MG/DL (70-105); POTASSIUM SERUM 3.8 MEQ/L (3.5-5.1); SODIUM LEVEL 147 MEQ/L (136-145); TOTAL PROTEIN 7.9 GM/DL (6.4-8.2)
[2016-04-24 18:51] VITALS: BP 147/85
--- NOTE | 2016-04-25 12:26 | ECGEPIP ---
Stationary ECG Study [facility] - ED Test Date: 2016-04-24 Pat Name: CJ ROSAS Department: Room: - Gender: F Executive Assistant: ct : 1960 Requested By: Mando Lynne Order Number: [id number] Reading MD: Elisha Yousif Measurements Intervals [place] Rate: 98 P: 51 NC: 142 QRS: 31 QRSD: 84 T: 43 QT: 324 QTc: 414 Interpretive Statements SINUS RHYTHM WITH SINUS ARRHYTHMIA POSSIBLE LEFT ATRIAL ENLARGEMENT NONSPECIFIC T-WAVE ABNORMALITY SIMILAR 05/14/14 Electronically Signed On 04-25-2016 12:26:05 EST by Elisha Yousif
== END 2016-04-24 19:00 | disposition home or self-care (01) ==
LOC: M ED 16:32
DX: R53.1 Weakness (principal); F10.10 Alcohol abuse, uncomplicated; I10 Essential (primary) hypertension; G43.909 Migraine, unspecified, not intractable, without status migrainosus; F32.9 Major depressive disorder, single episode, unspecified; G47.00 Insomnia, unspecified; F41.9 Anxiety disorder, unspecified; Z79.899 Other long term (current) drug therapy
CPT/HCPCS: 70450; 71010; 80048; 80076; 80306; 82550; 82553; 84443; 85025; 85610; 85730; 93005; 93041; 94760; 96360; 96361; 99285; G0480

== ENCOUNTER → 2016-08-20 | Outpatient (CLI) | payer OTHER ==
[~2016-08-20] MED LIST: ALBU17IN INH; AMLO2.5T PO; INCR1INH; MONT10TA2; TRAZ-136 PO; ZOFR4TAB3 PO
[2016-08-20 10:36] LABS: COMPLEMENT C4 28.6 MG/DL (10-40)
[2016-08-23 00:06] LABS: ALPHA 1 ANTITRYPSIN 139 mg/dL (90-200); F002-IgE Milk < 0.10 kU/L (Class 0); F004-IgE Wheat 0.62 kU/L (Class II); F013-IgE Peanut 0.46 kU/L (Class I); F026-IgE Pork < 0.10 kU/L (Class 0); F027-IgE Beef < 0.10 kU/L (Class 0); F245-IgE Egg, Whole < 0.10 kU/L (Class 0); FX02-IgE Food Mix (Sea Foods) Negative (.); IMMUNOGLOBULIN E, TOTAL 486 IU/mL (0-100); M001-IgE Penicillium chrysogen 0.63 kU/L (Class II); M002 IgE Cladosporium herbaru 0.85 kU/L (Class II); M003 IgE Aspergillus fumigatu 1.83 kU/L (Class III); M006-IgE Alternaria alternata 9.06 kU/L (Class IV); T008-IgE Elm, American 3.41 kU/L (Class III)
== END ==
LOC: M LAB 08:16
PROVIDERS: ATTEND Allergy & Immunology
DX: J30.2 Other seasonal allergic rhinitis (principal); J32.0 Chronic maxillary sinusitis; L20.9 Atopic dermatitis, unspecified

== ENCOUNTER → 2016-08-20 | Outpatient (CLI) | payer OTHER ==
[2016-08-20 09:08] LABS: BASO % 0.7 % (0.0-1.0); EOS # 0.4 K/mm3 (0.0-0.50); EOS % 6.5 % (0.0-3.0); LYMPH # 2.1 K/mm3 (1.5-4.5); LYMPH % 33.6 % (24.0-44.0); MEAN CORPUSCULAR HEMOGLOBIN 33.7 pg (27.0-33.0); MEAN CORPUSCULAR HGB CONC 34.3 g/dl (32.0-36.5); MEAN CORPUSCULAR VOLUME 98.3 fl (80.0-96.0); MONO # 0.4 K/mm3 (0.0-0.8); MONO % 5.5 % (0.0-5.0); NEUTROPHILS # 3.2 K/mm3 (1.8-7.7); NEUTROPHILS % 50.5 % (36.0-66.0); RED CELL DISTRIBUTION WIDTH 12.8 % (11.5-14.5); WHITE BLOOD COUNT 6.3 K/mm3 (4.0-10.0)
[2016-08-20 09:23] LABS: ALBUMIN 3.6 GM/DL (3.2-5.2); ALBUMIN/GLOBULIN RATIO 0.92 (1.00-1.93); ALKALINE PHOSPHATASE 164 U/L (45-117); ALT/SGPT 107 U/L (12-78); ANION GAP 11 MEQ/L (8-16); AST/SGOT 88 U/L (15-37); BILIRUBIN,TOTAL 0.2 MG/DL (0.2-1.0); BLOOD UREA NITROGEN 11 MG/DL (7-18); CALCIUM LEVEL 9.1 MG/DL (8.5-10.1); CARBON DIOXIDE LEVEL 23 MEQ/L (21-32); CHLORIDE LEVEL 108 MEQ/L (98-107); CHOLESTEROL LEVEL 210 MG/DL (<200); CREATININE FOR GFR 0.75 MG/DL (0.55-1.02); FREE T4 0.87 NG/DL (0.76-1.46); GLOMERULAR FILTRATION RATE > 60.0 (>51); GLUCOSE, FASTING 117 MG/DL (70-105); SODIUM LEVEL 142 MEQ/L (136-145); TOTAL PROTEIN 7.5 GM/DL (6.4-8.2); TRIGLYCERIDES LEVEL 285 MG/DL (<150)
== END ==
LOC: M LAB 08:20
PROVIDERS: ATTEND Nurse Practitioner Adult Health
DX: E55.9 Vitamin D deficiency, unspecified (principal); Z79.899 Other long term (current) drug therapy; E78.00 Pure hypercholesterolemia, unspecified

== ENCOUNTER 2016-10-27 10:03 | Emergency (ER) | payer OTHER ==
[~2016-10-27] VITALS: Ht 162.6 cm; Wt 74.4 kg
[2016-10-27 10:03] VITALS: BP 170/102
[~2016-10-27 10:03] MED LIST changes: -ALBU17IN INH; -INCR1INH; -MONT10TA2; -ZOFR4TAB3 PO
[2016-10-27] MEDS ORDERED: MONT10TA2 (10:44)
[2016-10-27] MEDS ORDERED: ALBU17IN INH (10:44)
[2016-10-27] MEDS ORDERED: INCR1INH (10:44)
[2016-10-27] MEDS ORDERED: ZOFR4TAB3 PO (11:04)
[2016-10-27] MEDS ORDERED: ONDANSETRON 4 MG ORAL DISINTEGRATING TAB (S0181) PO ONE (11:15)
== END 2016-10-27 11:13 | disposition home or self-care (01) ==
LOC: M ED 10:03
DX: E86.0 Dehydration (principal); R11.2 Nausea with vomiting, unspecified; R19.7 Diarrhea, unspecified

== ENCOUNTER → 2017-06-07 | Outpatient (CLI) | payer OTHER | LOC: M RAD 11:54 | DX: R93.8 Abnormal findings on diagnostic imaging of other specified body structures (principal) | CPT/HCPCS: 76604 ==

== ENCOUNTER 2017-06-24 11:12 | Emergency (ER) | payer OTHER ==
[2017-06-24] MEDS ORDERED: ROCURONIUM BROMIDE 50 MG/5 ML VIAL (11:13)
[2017-06-24] MEDS ORDERED: ETOMIDATE INJ 20MG/10ML VIAL (11:13)
[2017-06-24] MEDS ORDERED: NALOXONE INJ 2 MG/2 ML SYRINGE (J2310) As Ordered (11:17)
[2017-06-24] MEDS: NALOXONE INJ 0.4 MG/1 ML VIAL (J2310) IV (11:18)
[2017-06-24] MEDS ORDERED: ADENOSINE 6MG/2ML INJECTION (J0153) As Ordered (11:22)
[2017-06-24] MEDS: NS 1,000 ML IV ×2 (11:22→12:17)
[2017-06-24] MEDS ORDERED: LORazepam 2 MG/ML VIAL (J2060) As Ordered (11:22)
[2017-06-24] MEDS: LORazepam 2 MG/ML VIAL (J2060) IV (11:23)
[2017-06-24] MEDS: ADENOSINE 6MG/2ML INJECTION (J0153) IV ×2 (11:25→11:28)
[2017-06-24 11:33] LABS: BASO % 0.2 % (0.0-1.0); HEMATOCRIT 42.2 % (36.0-47.0); HEMOGLOBIN 14.4 g/dl (12.0-15.5); IMMATURE GRANULOCYTE % 0.4 % (0-3.0); LYMPH # 1.5 10^3/uL (1.5-4.5); LYMPH % 12.1 % (24.0-44.0); MEAN CORPUSCULAR HEMOGLOBIN 32.7 pg (27.0-33.0); MEAN CORPUSCULAR HGB CONC 34.1 g/dl (32.0-36.5); MEAN CORPUSCULAR VOLUME 95.7 fl (80.0-96.0); MONO # 0.7 10^3/uL (0.0-0.8); MONO % 5.8 % (0.0-5.0); NEUTROPHILS # 10.3 10^3/uL (1.8-7.7); NEUTROPHILS % 81.5 % (36.0-66.0); PLATELET COUNT, AUTOMATED 274 10^3/uL (150-450); RED BLOOD COUNT 4.41 10^6/uL (4.00-5.40); RED CELL DISTRIBUTION WIDTH 13.4 % (11.5-14.5); WHITE BLOOD COUNT 12.7 10^3/uL (4.0-10.0)
[2017-06-24 11:58] LABS: AMMONIA 111 uMOL/L (<32)
[2017-06-24 12:04] LABS: LACTIC ACID SEPSIS PROTOCOL 5.1 MMOL/L (0.4-2.0)
[2017-06-24 12:05] LABS: ALBUMIN 4.3 GM/DL (3.2-5.2); ALKALINE PHOSPHATASE 281 U/L (45-117); ALT/SGPT 149 U/L (12-78); ANION GAP 17 MEQ/L (8-16); AST/SGOT 830 U/L (7-37); BILIRUBIN,DIRECT 1.3 MG/DL (0.0-0.2); BLOOD UREA NITROGEN 23 MG/DL (7-18); CALCIUM LEVEL 9.2 MG/DL (8.5-10.1); CARBON DIOXIDE LEVEL 22 MEQ/L (21-32); CHLORIDE LEVEL 100 MEQ/L (98-107); CREATININE FOR GFR 2.21 MG/DL (0.55-1.30); ETHYL ALCOHOL (ETHANOL) < 0.003 % (0.000-0.010); GLOMERULAR FILTRATION RATE 29.7 (>51); GLUCOSE, FASTING 179 MG/DL (70-100); SODIUM LEVEL 139 MEQ/L (136-145); TOTAL PROTEIN 9.1 GM/DL (6.4-8.2); TROPONIN I 0.43 NG/ML (< 0.10)
[2017-06-24] MEDS: ETOMIDATE INJ 20MG/10ML VIAL IV ×2 (12:05)
[2017-06-24] MEDS: ROCURONIUM BROMIDE 50 MG/5 ML VIAL IV ×2 (12:05)
[2017-06-24] MEDS ORDERED: MIDAZOLAM INJ 5 MG/ML VIAL (J2250) As Ordered (12:14)
[2017-06-24] MEDS: MIDAZOLAM HCL 50 MG in D5W 40 ML IV (12:22)
[2017-06-24] MEDS: levETIRAcetam INJection 1,500 MG in D5W 100 ML IV (12:24)
[2017-06-24] MEDS: LABETALOL HCL 200 MG in D5W 160 ML IV (12:25)
[2017-06-24 12:26] LABS: CK-MB VALUE MASS 12.2 NG/ML (<3.6)
[2017-06-24 12:33] LABS: AMORPHOUS SEDIMENT RFX MODERATE (NEGATIVE); KETONE, URINE AUTO RFX TRACE mg/dL (NEGATIVE); LEUKOCYTE ESTERASE UR AUTO RFX NEGATIVE (NEGATIVE); MUCUS, URINE RFX SMALL (NEGATIVE); NITRITE, URINE AUTO RFX NEGATIVE (NEGATIVE); RBC, URINE AUTO RFX 39 /HPF (0-3); SPECIFIC GRAVITY UR AUTO RFX 1.017 (1.002-1.035); SQUAM EPITHELIAL CELL UR AURFX 2 /HPF (0-6)
[2017-06-24 12:40] LABS: WBC, URINE AUTO RFX 68 /HPF (0-3)
[2017-06-24 12:50] LABS: ACETAMINOPHEN LEVEL < 2.0 UG/ML (10.0-30.0); CPK CREATINE PHOSPHOKINASE 28550 U/L (26-192); MB/CK RELATIVE INDEX 0.04 (< OR =4); SALICYLATE LEVEL < 1.7 MG/DL (5.0-30.0)
[2017-06-24 12:52] LABS: AMPHETAMINES LEVEL URINE NEGATIVE (NEGATIVE); BARBITURATES URINE NEGATIVE (NEGATIVE); BENZODIAZEPINES URINE NEGATIVE (NEGATIVE); CANNABINOIDS URINE NEGATIVE (NEGATIVE); COCAINE METABOLITE URINE NEGATIVE (NEGATIVE); METHADONE URINE NEGATIVE (NEGATIVE); OPIATES URINE NEGATIVE (NEGATIVE); PHENCYCLIDINE URINE NEGATIVE (NEGATIVE)
[2017-06-24 12:53] LABS: BEDSIDE GLUCOSE 189 MG/DL (70-105)
== END 2017-06-24 12:39 | disposition short-term general hospital (02) ==
LOC: M ED 11:12
DX: I62.01 Nontraumatic acute subdural hemorrhage (principal); R94.31 Abnormal electrocardiogram [ECG] [EKG]; R56.9 Unspecified convulsions; Z79.899 Other long term (current) drug therapy
CPT/HCPCS: J1953

== ENCOUNTER 2017-07-01 13:30 | Inpatient (IN) | payer OTHER ==
[~2017-07-01 13:30] MED LIST changes: -AMLO2.5T PO; +BISACODYL 10 MG SUPP PR; +COMBIVENT RESPIMAT 100-20MCG INHALER 4GM INH; +FLEET ENEMA PR; +MULTIVITAMINS/MINERALS THERAP 1 TAB PO; +ONDANSETRON 4 MG ORAL DISINTEGRATING TAB (Q0162 PER 1MG) PO; +TOLTERODINE TARTRATE 2 MG LA CAP (DETROL LA) PO; -TRAZ-136 PO; +VITAMIN D 1,000 INTERNATIONAL UNITS TABLET PO
[2017-07-01] MEDS: hydrOXYzine 50 MG TAB PO ×3 (15:34→21:01)
[2017-07-01 15:35] LABS: MAGNESIUM LEVEL 1.9 MG/DL (1.8-2.4)
[2017-07-01] MEDS: traZODone 100 MG TAB PO (21:00)
[2017-07-01] MEDS: METOPROLOL TART 50 MG TAB PO (21:00)
[2017-07-01] MEDS: SENOKOT S TAB PO (21:00)
[2017-07-01] MEDS ORDERED: COMBIVENT RESPIMAT 100-20MCG INHALER 4GM INH (21:00)
[2017-07-01] MEDS: LACOSAMIDE 50 MG TAB (VIMPAT) PO (21:00)
[2017-07-01] MEDS: levETIRAcetam 250MG TABLET (KEPPRA) PO (21:01)
[2017-07-01] MEDS: MAGNESIUM GLUCONATE 500 MG TAB PO (21:01)
[2017-07-02 06:39] LABS: BASO % 0.4 % (0.0-1.0); EOS # 0.1 10^3/uL (0.0-0.50); EOS % 1.5 % (0.0-3.0); HEMATOCRIT 32.5 % (36.0-47.0); HEMOGLOBIN 10.7 g/dl (12.0-15.5); IMMATURE GRANULOCYTE % 1.7 % (0-3.0); LYMPH % 21.4 % (24.0-44.0); MEAN CORPUSCULAR HEMOGLOBIN 32.4 pg (27.0-33.0); MEAN CORPUSCULAR HGB CONC 32.9 g/dl (32.0-36.5); MEAN CORPUSCULAR VOLUME 98.5 fl (80.0-96.0); MONO # 1.3 10^3/uL (0.0-0.8); MONO % 14.2 % (0.0-5.0); NEUTROPHILS # 5.6 10^3/uL (1.8-7.7); NEUTROPHILS % 60.8 % (36.0-66.0); PLATELET COUNT, AUTOMATED 482 10^3/uL (150-450); RED CELL DISTRIBUTION WIDTH 13.9 % (11.5-14.5); WHITE BLOOD COUNT 9.2 10^3/uL (4.0-10.0)
[2017-07-02 07:14] LABS: ALBUMIN/GLOBULIN RATIO 0.71 (1.00-1.93); ALKALINE PHOSPHATASE 173 U/L (45-117); ALT/SGPT 124 U/L (12-78); ANION GAP 6 MEQ/L (8-16); AST/SGOT 128 U/L (7-37); BILIRUBIN,TOTAL 0.6 MG/DL (0.2-1.0); BLOOD UREA NITROGEN 8 MG/DL (7-18); CALCIUM LEVEL 9.8 MG/DL (8.5-10.1); CARBON DIOXIDE LEVEL 30 MEQ/L (21-32); CHLORIDE LEVEL 105 MEQ/L (98-107); CREATININE FOR GFR 0.69 MG/DL (0.55-1.30); GLOMERULAR FILTRATION RATE > 60.0 (>51); GLUCOSE, FASTING 111 MG/DL (70-100); POTASSIUM SERUM 4.5 MEQ/L (3.5-5.1); SODIUM LEVEL 141 MEQ/L (136-145); TOTAL PROTEIN 7.2 GM/DL (6.4-8.2)
[2017-07-02] MEDS: SENOKOT S TAB PO ×2 (09:33→20:43)
[2017-07-02] MEDS: MONTELUKAST 10 MG TAB PO (09:33)
[2017-07-02] MEDS: MULTIVITAMINS/MINERALS THERAP 1 TAB PO (09:33)
[2017-07-02] MEDS: TOLTERODINE TARTRATE 2 MG LA CAP (DETROL LA) PO (09:33)
[2017-07-02] MEDS: levETIRAcetam 250MG TABLET (KEPPRA) PO ×2 (09:33→20:43)
[2017-07-02] MEDS: hydrOXYzine 50 MG TAB PO ×4 (09:33→20:43)
[2017-07-02] MEDS: ENOXAPARIN 40 MG/0.4 ML SYRINGE (J1650) SC (09:34)
[2017-07-02] MEDS: LACOSAMIDE 50 MG TAB (VIMPAT) PO ×2 (09:34→20:43)
[2017-07-02] MEDS: VITAMIN D 1,000 INTERNATIONAL UNITS TABLET PO (09:34)
[2017-07-02] MEDS: METOPROLOL TART 50 MG TAB PO ×2 (09:34→20:45)
[2017-07-02] MEDS: amLODIPine 10 MG TAB PO (09:34)
[2017-07-02] MEDS: MAGNESIUM GLUCONATE 500 MG TAB PO ×2 (09:35→20:43)
[2017-07-02] MEDS: DICLOFENAC EPOLAMINE 1.3 % PATCH TOP ×2 (12:39→20:45)
[2017-07-02] MEDS: ACETAMINOPHEN TAB 650MG DOSE (2X325MG) PO (17:44)
[2017-07-02] MEDS: traZODone 100 MG TAB PO (20:43)
[2017-07-03] MEDS: levETIRAcetam 250MG TABLET (KEPPRA) PO ×2 (09:32→20:46)
[2017-07-03] MEDS: TOLTERODINE TARTRATE 2 MG LA CAP (DETROL LA) PO (09:32)
[2017-07-03] MEDS: MAGNESIUM GLUCONATE 500 MG TAB PO ×2 (09:32→20:56)
[2017-07-03] MEDS: LACOSAMIDE 50 MG TAB (VIMPAT) PO ×2 (09:33→20:47)
[2017-07-03] MEDS: MULTIVITAMINS/MINERALS THERAP 1 TAB PO (09:33)
[2017-07-03] MEDS: amLODIPine 10 MG TAB PO (09:33)
[2017-07-03] MEDS: METOPROLOL TART 50 MG TAB PO ×2 (09:33→20:47)
[2017-07-03] MEDS: VITAMIN D 1,000 INTERNATIONAL UNITS TABLET PO (09:33)
[2017-07-03] MEDS: SENOKOT S TAB PO ×2 (09:33→20:47)
[2017-07-03] MEDS: MONTELUKAST 10 MG TAB PO (09:33)
[2017-07-03] MEDS: hydrOXYzine 50 MG TAB PO ×4 (09:33→20:47)
[2017-07-03] MEDS: DICLOFENAC EPOLAMINE 1.3 % PATCH TOP ×2 (09:34→20:56)
[2017-07-03] MEDS: ENOXAPARIN 40 MG/0.4 ML SYRINGE (J1650) SC (09:34)
[2017-07-03] MEDS: ACETAMINOPHEN TAB 650MG DOSE (2X325MG) PO ×2 (11:51→19:48)
[2017-07-03] MEDS: traZODone 100 MG TAB PO (20:47)
[2017-07-04 07:03] LABS: HEMATOCRIT 32.9 % (36.0-47.0); MEAN CORPUSCULAR HEMOGLOBIN 32.9 pg (27.0-33.0); MEAN CORPUSCULAR HGB CONC 33.4 g/dl (32.0-36.5); MEAN CORPUSCULAR VOLUME 98.5 fl (80.0-96.0); PLATELET COUNT, AUTOMATED 542 10^3/uL (150-450); RED BLOOD COUNT 3.34 10^6/uL (4.00-5.40); RED CELL DISTRIBUTION WIDTH 13.6 % (11.5-14.5); WHITE BLOOD COUNT 10.4 10^3/uL (4.0-10.0)
[2017-07-04 07:21] LABS: ALBUMIN 3.2 GM/DL (3.2-5.2); ALBUMIN/GLOBULIN RATIO 0.68 (1.00-1.93); ALKALINE PHOSPHATASE 229 U/L (45-117); ALT/SGPT 133 U/L (12-78); ANION GAP 9 MEQ/L (8-16); AST/SGOT 113 U/L (7-37); BILIRUBIN,TOTAL 0.5 MG/DL (0.2-1.0); BLOOD UREA NITROGEN 10 MG/DL (7-18); CALCIUM LEVEL 9.8 MG/DL (8.5-10.1); CARBON DIOXIDE LEVEL 26 MEQ/L (21-32); CHLORIDE LEVEL 106 MEQ/L (98-107); CREATININE FOR GFR 0.74 MG/DL (0.55-1.30); GLOMERULAR FILTRATION RATE > 60.0 (>51); GLUCOSE, FASTING 102 MG/DL (70-100); POTASSIUM SERUM 4.1 MEQ/L (3.5-5.1); SODIUM LEVEL 141 MEQ/L (136-145); TOTAL PROTEIN 7.9 GM/DL (6.4-8.2)
[2017-07-04] MEDS: ENOXAPARIN 40 MG/0.4 ML SYRINGE (J1650) SC (08:52)
[2017-07-04] MEDS: levETIRAcetam 250MG TABLET (KEPPRA) PO ×2 (08:52→20:32)
[2017-07-04] MEDS: MAGNESIUM GLUCONATE 500 MG TAB PO ×2 (08:52→20:31)
[2017-07-04] MEDS: SENOKOT S TAB PO ×2 (08:53→20:32)
[2017-07-04] MEDS: MULTIVITAMINS/MINERALS THERAP 1 TAB PO (08:53)
[2017-07-04] MEDS: VITAMIN D 1,000 INTERNATIONAL UNITS TABLET PO (08:53)
[2017-07-04] MEDS: hydrOXYzine 50 MG TAB PO ×4 (08:53→20:31)
[2017-07-04] MEDS: MONTELUKAST 10 MG TAB PO (08:53)
[2017-07-04] MEDS: LACOSAMIDE 50 MG TAB (VIMPAT) PO ×2 (08:53→20:31)
[2017-07-04] MEDS: ACETAMINOPHEN TAB 650MG DOSE (2X325MG) PO ×2 (08:54→16:11)
[2017-07-04] MEDS: TOLTERODINE TARTRATE 2 MG LA CAP (DETROL LA) PO (08:54)
[2017-07-04] MEDS: METOPROLOL TART 50 MG TAB PO ×2 (08:54→20:31)
[2017-07-04] MEDS: amLODIPine 10 MG TAB PO (08:55)
[2017-07-04] MEDS: DICLOFENAC EPOLAMINE 1.3 % PATCH TOP ×2 (08:55→20:32)
[2017-07-04] MEDS: BISACODYL 5 MG TAB PO (20:31)
[2017-07-04] MEDS: traZODone 100 MG TAB PO (20:31)
[2017-07-05] MEDS: ACETAMINOPHEN TAB 650MG DOSE (2X325MG) PO ×2 (04:21→18:44)
[2017-07-05] MEDS: ENOXAPARIN 40 MG/0.4 ML SYRINGE (J1650) SC (10:08)
[2017-07-05] MEDS: levETIRAcetam 250MG TABLET (KEPPRA) PO ×2 (10:08→20:18)
[2017-07-05] MEDS: DICLOFENAC EPOLAMINE 1.3 % PATCH TOP ×2 (10:08→20:17)
[2017-07-05] MEDS: MAGNESIUM GLUCONATE 500 MG TAB PO ×2 (10:08→20:17)
[2017-07-05] MEDS: VITAMIN D 1,000 INTERNATIONAL UNITS TABLET PO (10:09)
[2017-07-05] MEDS: SENOKOT S TAB PO ×2 (10:09→20:20)
[2017-07-05] MEDS: MULTIVITAMINS/MINERALS THERAP 1 TAB PO (10:09)
[2017-07-05] MEDS: TOLTERODINE TARTRATE 2 MG LA CAP (DETROL LA) PO (10:09)
[2017-07-05] MEDS: LACOSAMIDE 50 MG TAB (VIMPAT) PO ×2 (10:10→20:18)
[2017-07-05] MEDS: MONTELUKAST 10 MG TAB PO (10:10)
[2017-07-05] MEDS: amLODIPine 10 MG TAB PO (10:11)
[2017-07-05] MEDS: hydrOXYzine 50 MG TAB PO ×4 (10:12→20:18)
[2017-07-05] MEDS: METOPROLOL TART 50 MG TAB PO ×2 (10:12→20:20)
[2017-07-05] MEDS: AMANTADINE 100 MG CAP PO (17:53)
[2017-07-05] MEDS: traZODone 100 MG TAB PO (20:19)
[2017-07-06] MEDS: ACETAMINOPHEN TAB 650MG DOSE (2X325MG) PO ×2 (04:45→14:30)
[2017-07-06] MEDS: ENOXAPARIN 40 MG/0.4 ML SYRINGE (J1650) SC (10:02)
[2017-07-06] MEDS: MAGNESIUM GLUCONATE 500 MG TAB PO ×2 (10:02→20:44)
[2017-07-06] MEDS: MULTIVITAMINS/MINERALS THERAP 1 TAB PO (10:03)
[2017-07-06] MEDS: METOPROLOL TART 50 MG TAB PO ×2 (10:03→20:46)
[2017-07-06] MEDS: SENOKOT S TAB PO ×2 (10:04→20:45)
[2017-07-06] MEDS: VITAMIN D 1,000 INTERNATIONAL UNITS TABLET PO (10:04)
[2017-07-06] MEDS: LACOSAMIDE 50 MG TAB (VIMPAT) PO ×2 (10:05→20:45)
[2017-07-06] MEDS: amLODIPine 10 MG TAB PO (10:05)
[2017-07-06] MEDS: AMANTADINE 100 MG CAP PO (10:05)
[2017-07-06] MEDS: hydrOXYzine 50 MG TAB PO ×4 (10:06→20:45)
[2017-07-06] MEDS: MONTELUKAST 10 MG TAB PO (10:06)
[2017-07-06] MEDS: DICLOFENAC EPOLAMINE 1.3 % PATCH TOP ×2 (10:06→20:43)
[2017-07-06] MEDS: levETIRAcetam 250MG TABLET (KEPPRA) PO ×2 (10:07→20:44)
[2017-07-06] MEDS: TOLTERODINE TARTRATE 2 MG LA CAP (DETROL LA) PO (10:10)
[2017-07-06] MEDS: AMITRIPTYLINE 25 MG TAB PO (20:44)
[2017-07-06] MEDS: traZODone 50 MG TAB PO (20:45)
[2017-07-07 06:47] LABS: HEMATOCRIT 35.3 % (36.0-47.0); PLATELET COUNT, AUTOMATED 623 10^3/uL (150-450); RED BLOOD COUNT 3.64 10^6/uL (4.00-5.40); WHITE BLOOD COUNT 12.1 10^3/uL (4.0-10.0)
[2017-07-07 07:13] LABS: ALBUMIN 3.6 GM/DL (3.2-5.2); ALBUMIN/GLOBULIN RATIO 0.72 (1.00-1.93); ALKALINE PHOSPHATASE 254 U/L (45-117); ALT/SGPT 138 U/L (12-78); ANION GAP 7 MEQ/L (8-16); AST/SGOT 96 U/L (7-37); BILIRUBIN,TOTAL 0.5 MG/DL (0.2-1.0); BLOOD UREA NITROGEN 13 MG/DL (7-18); CALCIUM LEVEL 10.1 MG/DL (8.5-10.1); CARBON DIOXIDE LEVEL 25 MEQ/L (21-32); CHLORIDE LEVEL 105 MEQ/L (98-107); CREATININE FOR GFR 0.74 MG/DL (0.55-1.30); GLOMERULAR FILTRATION RATE > 60.0 (>51); GLUCOSE, FASTING 99 MG/DL (70-100); POTASSIUM SERUM 4.3 MEQ/L (3.5-5.1); SODIUM LEVEL 137 MEQ/L (136-145); TOTAL PROTEIN 8.6 GM/DL (6.4-8.2)
[2017-07-07] MEDS: DICLOFENAC EPOLAMINE 1.3 % PATCH TOP ×2 (08:13→20:26)
[2017-07-07] MEDS: ENOXAPARIN 40 MG/0.4 ML SYRINGE (J1650) SC (08:14)
[2017-07-07] MEDS: AMANTADINE 100 MG CAP PO (08:14)
[2017-07-07] MEDS: VITAMIN D 1,000 INTERNATIONAL UNITS TABLET PO (08:15)
[2017-07-07] MEDS: levETIRAcetam 250MG TABLET (KEPPRA) PO ×2 (08:15→20:27)
[2017-07-07] MEDS: METOPROLOL TART 50 MG TAB PO ×2 (08:15→20:32)
[2017-07-07] MEDS: MONTELUKAST 10 MG TAB PO (08:15)
[2017-07-07] MEDS: amLODIPine 10 MG TAB PO (08:16)
[2017-07-07] MEDS: LACOSAMIDE 50 MG TAB (VIMPAT) PO ×2 (08:16→20:26)
[2017-07-07] MEDS: TOLTERODINE TARTRATE 2 MG LA CAP (DETROL LA) PO (08:16)
[2017-07-07] MEDS: MULTIVITAMINS/MINERALS THERAP 1 TAB PO (08:16)
[2017-07-07] MEDS: hydrOXYzine 50 MG TAB PO ×4 (08:16→20:26)
[2017-07-07] MEDS: MAGNESIUM GLUCONATE 500 MG TAB PO ×2 (08:17→20:26)
[2017-07-07] MEDS: SENOKOT S TAB PO ×2 (08:17→20:26)
[2017-07-07] MEDS: ACETAMINOPHEN TAB 650MG DOSE (2X325MG) PO ×2 (08:20→19:17)
[2017-07-07] MEDS: traZODone 50 MG TAB PO (20:26)
[2017-07-07] MEDS: AMITRIPTYLINE 50 MG TAB PO (20:26)
[2017-07-08] MEDS: TOLTERODINE TARTRATE 2 MG LA CAP (DETROL LA) PO (08:58)
[2017-07-08] MEDS: ACETAMINOPHEN TAB 650MG DOSE (2X325MG) PO ×2 (08:58→20:19)
[2017-07-08] MEDS: MONTELUKAST 10 MG TAB PO (08:59)
[2017-07-08] MEDS: AMANTADINE 100 MG CAP PO (08:59)
[2017-07-08] MEDS: SENOKOT S TAB PO ×2 (08:59→20:19)
[2017-07-08] MEDS: levETIRAcetam 250MG TABLET (KEPPRA) PO ×2 (08:59→20:19)
[2017-07-08] MEDS: METOPROLOL TART 50 MG TAB PO ×2 (08:59→20:20)
[2017-07-08] MEDS: MULTIVITAMINS/MINERALS THERAP 1 TAB PO (08:59)
[2017-07-08] MEDS: hydrOXYzine 50 MG TAB PO ×4 (08:59→20:19)
[2017-07-08] MEDS: amLODIPine 10 MG TAB PO (09:00)
[2017-07-08] MEDS: LACOSAMIDE 50 MG TAB (VIMPAT) PO ×2 (09:00→20:19)
[2017-07-08] MEDS: ENOXAPARIN 40 MG/0.4 ML SYRINGE (J1650) SC (09:00)
[2017-07-08] MEDS: DICLOFENAC EPOLAMINE 1.3 % PATCH TOP ×2 (09:01→20:20)
[2017-07-08] MEDS: MAGNESIUM GLUCONATE 500 MG TAB PO ×2 (09:01→20:19)
[2017-07-08] MEDS: VITAMIN D 1,000 INTERNATIONAL UNITS TABLET PO (10:37)
[2017-07-08] MEDS: traZODone 50 MG TAB PO (20:19)
[2017-07-08] MEDS: AMITRIPTYLINE 50 MG TAB PO (20:19)
[2017-07-09] MEDS: LACOSAMIDE 50 MG TAB (VIMPAT) PO ×2 (07:46→20:12)
[2017-07-09] MEDS: SENOKOT S TAB PO ×2 (07:46→20:12)
[2017-07-09] MEDS: METOPROLOL TART 50 MG TAB PO ×2 (07:46→20:13)
[2017-07-09] MEDS: AMANTADINE 100 MG CAP PO (07:47)
[2017-07-09] MEDS: amLODIPine 10 MG TAB PO (07:47)
[2017-07-09] MEDS: hydrOXYzine 50 MG TAB PO ×4 (07:47→20:13)
[2017-07-09] MEDS: MAGNESIUM GLUCONATE 500 MG TAB PO ×2 (07:47→20:09)
[2017-07-09] MEDS: MONTELUKAST 10 MG TAB PO (07:47)
[2017-07-09] MEDS: MULTIVITAMINS/MINERALS THERAP 1 TAB PO (07:47)
[2017-07-09] MEDS: VITAMIN D 1,000 INTERNATIONAL UNITS TABLET PO (07:48)
[2017-07-09] MEDS: levETIRAcetam 250MG TABLET (KEPPRA) PO ×2 (07:48→20:10)
[2017-07-09] MEDS: ACETAMINOPHEN TAB 650MG DOSE (2X325MG) PO ×2 (07:48→14:02)
[2017-07-09] MEDS: DICLOFENAC EPOLAMINE 1.3 % PATCH TOP ×2 (07:48→20:09)
[2017-07-09] MEDS: TOLTERODINE TARTRATE 2 MG LA CAP (DETROL LA) PO (07:48)
[2017-07-09] MEDS: traZODone 50 MG TAB PO (20:12)
[2017-07-09] MEDS: AMITRIPTYLINE 50 MG TAB PO (20:12)
[2017-07-10 06:33] LABS: HEMATOCRIT 34.3 % (36.0-47.0); HEMOGLOBIN 11.7 g/dl (12.0-15.5); MEAN CORPUSCULAR HEMOGLOBIN 32.8 pg (27.0-33.0); MEAN CORPUSCULAR HGB CONC 34.1 g/dl (32.0-36.5); MEAN CORPUSCULAR VOLUME 96.1 fl (80.0-96.0); PLATELET COUNT, AUTOMATED 543 10^3/uL (150-450); RED BLOOD COUNT 3.57 10^6/uL (4.00-5.40); RED CELL DISTRIBUTION WIDTH 12.7 % (11.5-14.5); WHITE BLOOD COUNT 10.2 10^3/uL (4.0-10.0)
[2017-07-10] MEDS: DICLOFENAC EPOLAMINE 1.3 % PATCH TOP ×2 (09:46→20:22)
[2017-07-10] MEDS: MAGNESIUM GLUCONATE 500 MG TAB PO ×2 (09:46→20:22)
[2017-07-10] MEDS: levETIRAcetam 250MG TABLET (KEPPRA) PO ×2 (09:46→20:21)
[2017-07-10] MEDS: AMANTADINE 100 MG CAP PO (09:47)
[2017-07-10] MEDS: SENOKOT S TAB PO ×2 (09:47→20:22)
[2017-07-10] MEDS: TOLTERODINE TARTRATE 2 MG LA CAP (DETROL LA) PO (09:47)
[2017-07-10] MEDS: VITAMIN D 1,000 INTERNATIONAL UNITS TABLET PO (09:47)
[2017-07-10] MEDS: MULTIVITAMINS/MINERALS THERAP 1 TAB PO (09:47)
[2017-07-10] MEDS: LACOSAMIDE 50 MG TAB (VIMPAT) PO ×2 (09:47→20:21)
[2017-07-10] MEDS: hydrOXYzine 50 MG TAB PO ×4 (09:47→20:22)
[2017-07-10] MEDS: MONTELUKAST 10 MG TAB PO (09:47)
[2017-07-10] MEDS: amLODIPine 10 MG TAB PO (09:50)
[2017-07-10] MEDS: METOPROLOL TART 50 MG TAB PO ×2 (09:50→20:22)
[2017-07-10] MEDS: traZODone 50 MG TAB PO (20:22)
[2017-07-10] MEDS: AMITRIPTYLINE 50 MG TAB PO (20:22)
[2017-07-11] MEDS: AMANTADINE 100 MG CAP PO (08:25)
[2017-07-11] MEDS: LACOSAMIDE 50 MG TAB (VIMPAT) PO ×2 (08:25→20:45)
[2017-07-11] MEDS: MAGNESIUM GLUCONATE 500 MG TAB PO ×2 (08:25→20:45)
[2017-07-11] MEDS: hydrOXYzine 50 MG TAB PO ×4 (08:25→20:45)
[2017-07-11] MEDS: MULTIVITAMINS/MINERALS THERAP 1 TAB PO (08:25)
[2017-07-11] MEDS: MONTELUKAST 10 MG TAB PO (08:25)
[2017-07-11] MEDS: amLODIPine 10 MG TAB PO (08:26)
[2017-07-11] MEDS: TOLTERODINE TARTRATE 2 MG LA CAP (DETROL LA) PO (08:26)
[2017-07-11] MEDS: VITAMIN D 1,000 INTERNATIONAL UNITS TABLET PO (08:26)
[2017-07-11] MEDS: SENOKOT S TAB PO ×2 (08:26→20:45)
[2017-07-11] MEDS: levETIRAcetam 250MG TABLET (KEPPRA) PO ×2 (08:26→20:45)
[2017-07-11] MEDS: METOPROLOL TART 50 MG TAB PO ×2 (08:26→20:46)
[2017-07-11] MEDS: DICLOFENAC EPOLAMINE 1.3 % PATCH TOP ×2 (08:27→20:47)
[2017-07-11] MEDS: AMITRIPTYLINE 50 MG TAB PO (20:45)
[2017-07-11] MEDS: traZODone 50 MG TAB PO (20:45)
[2017-07-11] MEDS: ACETAMINOPHEN TAB 650MG DOSE (2X325MG) PO (20:47)
[2017-07-12] MEDS: levETIRAcetam 250MG TABLET (KEPPRA) PO (08:33)
[2017-07-12] MEDS: amLODIPine 10 MG TAB PO (08:33)
[2017-07-12] MEDS: LACOSAMIDE 50 MG TAB (VIMPAT) PO (08:33)
[2017-07-12] MEDS: METOPROLOL TART 50 MG TAB PO (08:34)
[2017-07-12] MEDS: MULTIVITAMINS/MINERALS THERAP 1 TAB PO (08:34)
[2017-07-12] MEDS: VITAMIN D 1,000 INTERNATIONAL UNITS TABLET PO (08:34)
[2017-07-12] MEDS: AMANTADINE 100 MG CAP PO (08:34)
[2017-07-12] MEDS: MAGNESIUM GLUCONATE 500 MG TAB PO (08:34)
[2017-07-12] MEDS: DICLOFENAC EPOLAMINE 1.3 % PATCH TOP (08:34)
[2017-07-12] MEDS: TOLTERODINE TARTRATE 2 MG LA CAP (DETROL LA) PO (08:34)
[2017-07-12] MEDS: hydrOXYzine 50 MG TAB PO ×2 (08:34→12:31)
[2017-07-12] MEDS: MONTELUKAST 10 MG TAB PO (08:34)
[2017-07-12] MEDS: ACETAMINOPHEN TAB 650MG DOSE (2X325MG) PO (08:35)
[2017-07-12] MEDS: SENOKOT S TAB PO (08:35)
== END 2017-07-12 13:05 | disposition home or self-care (01) | DRG 58 ==
LOC: M MS4PR 13:30 → M PM&R 13:40
PROVIDERS: Physical Medicine & Rehabilitation
DX: I69.120 Aphasia following nontraumatic intracerebral hemorrhage (principal); I11.0 Hypertensive heart disease with heart failure; E83.42 Hypomagnesemia; I47.1 Supraventricular tachycardia; R13.12 Dysphagia, oropharyngeal phase; I50.9 Heart failure, unspecified; R56.9 Unspecified convulsions; L40.50 Arthropathic psoriasis, unspecified; J45.909 Unspecified asthma, uncomplicated; G47.00 Insomnia, unspecified; F41.9 Anxiety disorder, unspecified; F32.9 Major depressive disorder, single episode, unspecified; R74.0 Nonspecific elevation of levels of transaminase and lactic acid dehydrogenase [LDH]; M25.561 Pain in right knee; Z91.040 Latex allergy status; Z79.01 Long term (current) use of anticoagulants; Z79.899 Other long term (current) drug therapy; R32 Unspecified urinary incontinence; N32.89 Other specified disorders of bladder; M51.36 Other intervertebral disc degeneration, lumbar region

== ENCOUNTER 2017-07-28 10:44 | Outpatient (RCR) | payer OTHER | END 2017-08-21 | LOC: M ST 10:44 | DX: I63.9 Cerebral infarction, unspecified (principal); R13.10 Dysphagia, unspecified | CPT/HCPCS: 92507 ==

== ENCOUNTER 2017-07-29 19:46 | Emergency (ER) | payer OTHER ==
[2017-07-29 20:44] LABS: HEMATOCRIT 35.7 % (36.0-47.0); HEMOGLOBIN 12.2 g/dl (12.0-15.5); MEAN CORPUSCULAR HEMOGLOBIN 31.3 pg (27.0-33.0); MEAN CORPUSCULAR HGB CONC 34.2 g/dl (32.0-36.5); MEAN CORPUSCULAR VOLUME 91.5 fl (80.0-96.0); PLATELET COUNT, AUTOMATED 379 10^3/uL (150-450); RED CELL DISTRIBUTION WIDTH 12.2 % (11.5-14.5); WHITE BLOOD COUNT 6.9 10^3/uL (4.0-10.0)
[2017-07-29 21:07] LABS: ANION GAP 11 MEQ/L (8-16); BLOOD UREA NITROGEN 13 MG/DL (7-18); CALCIUM LEVEL 9.2 MG/DL (8.5-10.1); CARBON DIOXIDE LEVEL 25 MEQ/L (21-32); CHLORIDE LEVEL 112 MEQ/L (98-107); ETHYL ALCOHOL (ETHANOL) 0.251 % (0.000-0.010); GLOMERULAR FILTRATION RATE > 60.0 (>51); GLUCOSE, FASTING 124 MG/DL (70-100); SODIUM LEVEL 148 MEQ/L (136-145)
== END 2017-07-29 22:10 | disposition home or self-care (01) ==
LOC: M ED 19:46
DX: F10.129 Alcohol abuse with intoxication, unspecified (principal); W19.XXXA Unspecified fall, initial encounter; Y92.9 Unspecified place or not applicable; Y93.89 Activity, other specified; Y99.9 Unspecified external cause status; Z87.820 Personal history of traumatic brain injury; R56.9 Unspecified convulsions; Z79.899 Other long term (current) drug therapy; Z91.040 Latex allergy status
CPT/HCPCS: 70450

== ENCOUNTER 2017-08-23 05:13 | Inpatient (IN) | payer OTHER ==
[2017-08-23 05:34] LABS: BEDSIDE GLUCOSE 263 MG/DL (70-105)
[2017-08-23] MEDS: NS 500 ML IV (05:45)
[2017-08-23 05:51] LABS: BASO # 0.1 10^3/uL (0.0-0.2); BASO % 0.6 % (0.0-1.0); EOS % 0.1 % (0.0-3.0); HEMATOCRIT 35.5 % (36.0-47.0); HEMOGLOBIN 11.7 g/dl (12.0-15.5); IMMATURE GRANULOCYTE % 0.5 % (0-3.0); LYMPH # 1.5 10^3/uL (1.5-4.5); LYMPH % 13.6 % (24.0-44.0); MEAN CORPUSCULAR HEMOGLOBIN 29.3 pg (27.0-33.0); MONO # 0.8 10^3/uL (0.0-0.8); MONO % 6.8 % (0.0-5.0); NEUTROPHILS # 8.7 10^3/uL (1.8-7.7); NEUTROPHILS % 78.4 % (36.0-66.0); PLATELET COUNT, AUTOMATED 349 10^3/uL (150-450); RED BLOOD COUNT 3.99 10^6/uL (4.00-5.40); RED CELL DISTRIBUTION WIDTH 13.1 % (11.5-14.5); WHITE BLOOD COUNT 11.1 10^3/uL (4.0-10.0)
[2017-08-23] MEDS ORDERED: PROPOFOL 200 MG/20 ML VIAL As Ordered (05:56)
[2017-08-23] MEDS: PROPOFOL 200 MG/20 ML VIAL IV (06:11)
[2017-08-23] MEDS: levETIRAcetam INJection 500 MG in D5W MINI-BAG PLUS 100 ML IV (06:14)
[2017-08-23 06:17] LABS: ANION GAP 13 MEQ/L (8-16); BLOOD UREA NITROGEN 9 MG/DL (7-18); CALCIUM LEVEL 9.5 MG/DL (8.5-10.1); CARBON DIOXIDE LEVEL 26 MEQ/L (21-32); CHLORIDE LEVEL 101 MEQ/L (98-107); CREATININE FOR GFR 0.95 MG/DL (0.55-1.30); GLOMERULAR FILTRATION RATE > 60.0 (>51); GLUCOSE, FASTING 254 MG/DL (70-100); POTASSIUM SERUM 3.3 MEQ/L (3.5-5.1); SODIUM LEVEL 140 MEQ/L (136-145)
[2017-08-23 06:19] LABS: AMMONIA 42 uMOL/L (<32)
[2017-08-23 06:21] LABS: ALBUMIN/GLOBULIN RATIO 1.03 (1.00-1.93); ALKALINE PHOSPHATASE 226 U/L (45-117); ALT/SGPT 54 U/L (12-78); AST/SGOT 51 U/L (7-37); BILIRUBIN,DIRECT 0.3 MG/DL (0.0-0.2); BILIRUBIN,TOTAL 0.6 MG/DL (0.2-1.0); CPK CREATINE PHOSPHOKINASE 239 U/L (26-192); TOTAL PROTEIN 7.9 GM/DL (6.4-8.2)
[2017-08-23 06:25] LABS: ETHYL ALCOHOL (ETHANOL) < 0.003 % (0.000-0.010)
[2017-08-23] MEDS: cefTRIAXone SOD 1 GM in D5W MINI-BAG PLUS 50 ML IV (06:35)
[2017-08-23 06:38] LABS: LACTIC ACID SEPSIS PROTOCOL 1.7 MMOL/L (0.4-2.0)
[2017-08-23] MEDS: NS 1,000 ML IV (06:45)
[2017-08-23 06:53] LABS: APPEARANCE, URINE CLEAR (CLEAR); BACTERIA, URINE AUTO NEGATIVE (NEGATIVE); BILIRUBIN, URINE AUTO NEGATIVE (NEGATIVE); BLOOD, URINE BLOOD NEGATIVE (NEGATIVE); COLOR, URINE YELLOW (YELLOW); GLUCOSE, URINE (UA) AUTO 1+ mg/dL (NEGATIVE); KETONE, URINE AUTO 2+ mg/dL (NEGATIVE); LEUKOCYTE ESTERASE, URINE AUTO NEGATIVE (NEGATIVE); MUCUS, URINE SMALL (NEGATIVE); NITRITE, URINE AUTO NEGATIVE (NEGATIVE); PROTEIN, URINE AUTO 2+ mg/dL (NEGATIVE); RBC, URINE AUTO 0 /HPF (0-3); SPECIFIC GRAVITY URINE AUTO 1.019 (1.002-1.035); SQUAMOUS EPITHELIAL CELL UR AU 0 /HPF (0-6); UROBILINOGEN, URINE AUTO 0.2 mg/dL (0.0-2.0); WBC, URINE AUTO 1 /HPF (0-3)
[2017-08-23] MEDS ORDERED: NS IV (07:00)
[2017-08-23] MEDS ORDERED: ACYCLOVIR IV (07:00)
[2017-08-23 07:11] LABS: AMPHETAMINES LEVEL URINE NEGATIVE (NEGATIVE); BARBITURATES URINE NEGATIVE (NEGATIVE); BENZODIAZEPINES URINE POSITIVE (NEGATIVE); CANNABINOIDS URINE NEGATIVE (NEGATIVE); COCAINE METABOLITE URINE NEGATIVE (NEGATIVE); METHADONE URINE NEGATIVE (NEGATIVE); OPIATES URINE NEGATIVE (NEGATIVE); PHENCYCLIDINE URINE NEGATIVE (NEGATIVE)
[2017-08-23] MEDS ORDERED: ACETAMINOPHEN 650 MG SUPP PR (07:15)
[2017-08-23] MEDS ORDERED: ONDANSETRON 4MG/2ML VIAL (J2405) IV (07:15)
[2017-08-23 07:21] LABS: CSF RBC < 2 10^3/uL (<2)
[2017-08-23 07:22] LABS: APPEARANCE, CSF CLEAR (CLEAR); COLOR, CSF COLORLESS (COLORLESS); CSF TUBE# CELL CNT TUBE 3; CSF WBC 2 /uL (0-10)
[2017-08-23 07:23] LABS: CSF DIFF IF INDICATED? NO (NO); CSF RBC < 2 10^3/uL (<2); CSF WBC 1 /uL (0-10)
[2017-08-23 07:24] LABS: APPEARANCE, CSF CLEAR (CLEAR); COLOR, CSF COLORLESS (COLORLESS); CSF TUBE# CELL CNT TUBE 4
[2017-08-23 07:27] LABS: CSF TUBE# GLU TUBE 3; CSF TUBE# TP TUBE 3; GLUCOSE CSF 91 MG/DL (40-75); TOTAL PROTEIN,CSF 45.7 MG/DL (15-45)
[2017-08-23] MEDS ORDERED: ACYCLOVIR 1,000 MG in NS 250 ML IV (08:00)
[2017-08-23 08:56] LABS: PROLACTIN 35.6 NG/ML
[2017-08-23] MEDS: MONTELUKAST 10 MG TAB PO (09:00)
[2017-08-23] MEDS: AMANTADINE 100 MG CAP PO (09:00)
[2017-08-23] MEDS: D5W/0.45% SODIUM CHLORIDE 1,000 ML IV (09:26)
[2017-08-23] MEDS: KCL 10MEQ/100ML SWI (KRUN) 10 MEQ in APPROPRIATE DILUENT 1 EA IV (09:26)
[2017-08-23] MEDS: ACYCLOVIR 710 MG in NS 250 ML IV (09:26)
[2017-08-23] MEDS: LACTULOSE 20 GM/30 ML SYRUP UD PO (09:27)
[2017-08-23] MEDS: MULTIVITAMINS/MINERALS THERAP 1 TAB PO (11:47)
[2017-08-23] MEDS: VITAMIN D 1,000 INTERNATIONAL UNITS TABLET PO (11:47)
[2017-08-23] MEDS: amLODIPine 10 MG TAB PO (11:47)
[2017-08-23] MEDS: SENOKOT S TAB PO ×2 (11:48→20:07)
[2017-08-23] MEDS: METOPROLOL TART 50 MG TAB PO ×2 (11:48→20:07)
[2017-08-23] MEDS: LACOSAMIDE 50 MG TAB (VIMPAT) PO ×2 (11:49→20:05)
[2017-08-23] MEDS ORDERED: levETIRAcetam INJection 500 MG in D5W MINI-BAG PLUS 100 ML IV (18:00)
[2017-08-23] MEDS: levETIRAcetam 250MG TABLET (KEPPRA) PO (20:06)
[2017-08-23] MEDS: AMITRIPTYLINE 50 MG TAB PO (20:07)
[2017-08-23 20:23] LABS: AMMONIA 80 uMOL/L (<32)
[2017-08-23] MEDS ORDERED: METOPROLOL TART 50 MG TAB PO (21:00)
[2017-08-23] MEDS: diphenhydrAMINE 50 MG CAP PO (21:20)
[2017-08-24 05:11] LABS: HEMATOCRIT 35.3 % (36.0-47.0); HEMOGLOBIN 11.8 g/dl (12.0-15.5); MEAN CORPUSCULAR HEMOGLOBIN 28.9 pg (27.0-33.0); MEAN CORPUSCULAR HGB CONC 33.4 g/dl (32.0-36.5); MEAN CORPUSCULAR VOLUME 86.3 fl (80.0-96.0); PLATELET COUNT, AUTOMATED 328 10^3/uL (150-450); RED BLOOD COUNT 4.09 10^6/uL (4.00-5.40); RED CELL DISTRIBUTION WIDTH 12.8 % (11.5-14.5); WHITE BLOOD COUNT 5.8 10^3/uL (4.0-10.0)
[2017-08-24 05:42] LABS: ANION GAP 12 MEQ/L (8-16); BLOOD UREA NITROGEN 5 MG/DL (7-18); CALCIUM LEVEL 8.7 MG/DL (8.5-10.1); CARBON DIOXIDE LEVEL 25 MEQ/L (21-32); CHLORIDE LEVEL 105 MEQ/L (98-107); CREATININE FOR GFR 0.71 MG/DL (0.55-1.30); GLOMERULAR FILTRATION RATE > 60.0 (>51); GLUCOSE, FASTING 99 MG/DL (70-100); POTASSIUM SERUM 3.1 MEQ/L (3.5-5.1); SODIUM LEVEL 142 MEQ/L (136-145)
[2017-08-24] MEDS: POTASSIUM CHLORIDE 10 MEQ SR TABLET PO (06:27)
[2017-08-24] MEDS: amLODIPine 10 MG TAB PO (08:56)
[2017-08-24] MEDS: levETIRAcetam 250MG TABLET (KEPPRA) PO (08:56)
[2017-08-24] MEDS: MULTIVITAMINS/MINERALS THERAP 1 TAB PO (08:56)
[2017-08-24] MEDS: AMANTADINE 100 MG CAP PO (08:56)
[2017-08-24] MEDS: VITAMIN D 1,000 INTERNATIONAL UNITS TABLET PO (08:56)
[2017-08-24] MEDS: LACOSAMIDE 50 MG TAB (VIMPAT) PO (08:57)
[2017-08-24] MEDS: METOPROLOL TART 50 MG TAB PO (08:57)
[2017-08-24] MEDS: SENOKOT S TAB PO (09:00)
[2017-08-24] MEDS: MONTELUKAST 10 MG TAB PO (09:08)
== END 2017-08-24 10:15 | disposition home or self-care (01) | DRG 53 ==
LOC: M ED 05:13 → M ED INP 07:15 → M ICU 13:21
PROVIDERS: General Practice
DX: G40.909 Epilepsy, unspecified, not intractable, without status epilepticus (principal); F05 Delirium due to known physiological condition; E72.20 Disorder of urea cycle metabolism, unspecified; E55.9 Vitamin D deficiency, unspecified; I10 Essential (primary) hypertension; J45.909 Unspecified asthma, uncomplicated; G47.00 Insomnia, unspecified; F41.9 Anxiety disorder, unspecified; F32.9 Major depressive disorder, single episode, unspecified; Z86.73 Personal history of transient ischemic attack (TIA), and cerebral infarction without residual deficits

== ENCOUNTER 2017-09-02 10:56 | Outpatient (RCR) | payer OTHER | END 2017-09-21 | LOC: M ST 10:56 | DX: I69.391 Dysphagia following cerebral infarction (principal); R13.10 Dysphagia, unspecified | CPT/HCPCS: 92507 ==

== ENCOUNTER → 2017-09-10 | Outpatient (REF) | payer OTHER ==
[2017-09-10 18:11] LABS: ALBUMIN/GLOBULIN RATIO 0.98 (1.00-1.93); ALKALINE PHOSPHATASE 226 U/L (45-117); ALT/SGPT 49 U/L (12-78); ANION GAP 10 MEQ/L (8-16); AST/SGOT 29 U/L (7-37); BILIRUBIN,TOTAL 0.6 MG/DL (0.2-1.0); BLOOD UREA NITROGEN 12 MG/DL (7-18); CALCIUM LEVEL 9.7 MG/DL (8.5-10.1); CARBON DIOXIDE LEVEL 26 MEQ/L (21-32); CHLORIDE LEVEL 103 MEQ/L (98-107); GLOMERULAR FILTRATION RATE > 60.0 (>51); GLUCOSE, FASTING 139 MG/DL (70-100); POTASSIUM SERUM 3.6 MEQ/L (3.5-5.1); SODIUM LEVEL 139 MEQ/L (136-145); TOTAL PROTEIN 8.1 GM/DL (6.4-8.2)
== END ==
LOC: M LAB REF 17:16
DX: R79.89 Other specified abnormal findings of blood chemistry (principal); K76.0 Fatty (change of) liver, not elsewhere classified
CPT/HCPCS: 80053

== ENCOUNTER → 2017-09-16 | Outpatient (CLI) | payer OTHER ==
[2017-09-16 13:37] LABS: AMMONIA 35 uMOL/L (<32)
== END ==
LOC: M LAB 12:45
DX: K76.0 Fatty (change of) liver, not elsewhere classified (principal); R79.89 Other specified abnormal findings of blood chemistry
CPT/HCPCS: 82140

== ENCOUNTER 2017-10-13 08:56 | Outpatient (RCR) | payer OTHER | END 2017-10-22 | LOC: M ST 08:56 | DX: I63.9 Cerebral infarction, unspecified (principal); F80.1 Expressive language disorder | CPT/HCPCS: 96125 ==

== ENCOUNTER 2017-10-26 09:43 | Outpatient (RCR) | payer OTHER | END 2017-11-21 | LOC: M ST 09:43 | DX: Z51.89 Encounter for other specified aftercare (principal); F80.1 Expressive language disorder; I63.9 Cerebral infarction, unspecified | CPT/HCPCS: G0515 ==

== ENCOUNTER 2017-11-04 09:52 | Emergency (ER) | payer OTHER | END 2017-11-04 10:41 | disposition home or self-care (01) | LOC: M ED 09:52 | DX: L30.9 Dermatitis, unspecified (principal); I10 Essential (primary) hypertension; J45.909 Unspecified asthma, uncomplicated; F33.9 Major depressive disorder, recurrent, unspecified; F41.9 Anxiety disorder, unspecified; Z79.899 Other long term (current) drug therapy; Z91.040 Latex allergy status | CPT/HCPCS: 99282 ==

== ENCOUNTER 2017-11-23 09:41 | Outpatient (RCR) | payer OTHER | END 2017-12-22 | LOC: M ST 09:41 | DX: Z51.89 Encounter for other specified aftercare (principal); I63.9 Cerebral infarction, unspecified; R13.10 Dysphagia, unspecified; F80.1 Expressive language disorder | CPT/HCPCS: G0515 ==

== ENCOUNTER → 2018-04-21 | Outpatient (CLI) | payer OTHER ==
[~2018-04-21] MED LIST changes: +ALBU17IN INH; +AMAN100C18 PO; +AMAN100T PO; +AMIT50TA PO; +AMLO10TA5 PO; +AMLO2.5T3 PO; -BISACODYL 10 MG SUPP PR; +COLA100C5 PO; -COMBIVENT RESPIMAT 100-20MCG INHALER 4GM INH; +DETR2CAP PO; +DIPH50CA PO; +ERYT5OPO OU; -FLEET ENEMA PR; +HYDR50TA70 PO; +HYDRO50TAB PO; +INCR1INH; +KEPP1TAB PO; +KLOR10TA76 PO; +LEVETIRACETAM; +LOVE1INJ SC; +MAGN500T PO; +METO50TA7 PO; +MONT10TA2; +MONT10TA2 PO; -MULTIVITAMINS/MINERALS THERAP 1 TAB PO; -ONDANSETRON 4 MG ORAL DISINTEGRATING TAB (Q0162 PER 1MG) PO; +OXYB5TAB10 PO; +PATIENT COMMENTS; +PRED20TA PO; +SENN1TAB2 PO; +SENN8.6T7 PO; -TOLTERODINE TARTRATE 2 MG LA CAP (DETROL LA) PO; +TRAZ-163 PO; +TRAZ-189; +TRAZO50TA PO; +VIMP150T; +VIMP150T PO; +VIMP50TA3 PO; +VITA100066 PO; +VITAD1000T PO; -VITAMIN D 1,000 INTERNATIONAL UNITS TABLET PO; +VITMTA PO; +ZOFR4TAB14 PO
[2018-04-21 12:23] LABS: BASO # 0.1 10^3/uL (0.0-0.2); BASO % 0.9 % (0.0-1.0); EOS # 0.2 10^3/uL (0.0-0.50); EOS % 3.4 % (0.0-3.0); HEMATOCRIT 37.9 % (36.0-47.0); HEMOGLOBIN 12.7 g/dl (12.0-15.5); LYMPH # 2.6 10^3/uL (1.5-4.5); MEAN CORPUSCULAR HEMOGLOBIN 32.3 pg (27.0-33.0); MEAN CORPUSCULAR HGB CONC 33.5 g/dl (32.0-36.5); MEAN CORPUSCULAR VOLUME 96.4 fl (80.0-96.0); MONO # 0.7 10^3/uL (0.0-0.8); MONO % 9.7 % (0.0-5.0); NEUTROPHILS # 3.2 10^3/uL (1.8-7.7); NEUTROPHILS % 47.7 % (36.0-66.0); PLATELET COUNT, AUTOMATED 398 10^3/uL (150-450); RED BLOOD COUNT 3.93 10^6/uL (4.00-5.40); WHITE BLOOD COUNT 6.7 10^3/uL (4.0-10.0)
[2018-04-21 12:55] LABS: ALT/SGPT 93 U/L (12-78); BILIRUBIN,TOTAL 0.3 MG/DL (0.2-1.0); BLOOD UREA NITROGEN 13 MG/DL (7-18); CALCIUM LEVEL 9.6 MG/DL (8.5-10.1); CARBON DIOXIDE LEVEL 30 MEQ/L (21-32); CHLORIDE LEVEL 107 MEQ/L (98-107); CHOLESTEROL LEVEL 237 MG/DL (<200); CHOLESTEROL RISK RATIO 2.078 (<5); CREATININE FOR GFR 0.65 MG/DL (0.55-1.30); GLOMERULAR FILTRATION RATE > 60.0 (>51); GLUCOSE, FASTING 75 MG/DL (70-100); HDL CHOLESTEROL 114 MG/DL (>40); LDL CHOLESTEROL 99 MG/DL (<100); NON-HDL-C 123 MG/DL; POTASSIUM SERUM 4.5 MEQ/L (3.5-5.1); SODIUM LEVEL 143 MEQ/L (136-145); THYROID STIMULATING HORMONE 0.717 uIU/ML (0.358-3.740); TOTAL PROTEIN 7.8 GM/DL (6.4-8.2); TRIGLYCERIDES LEVEL 118 MG/DL (<150)
[2018-04-21 13:09] LABS: HEMOGLOBIN A1c 5.6 %
== END ==
LOC: M LAB 11:33
PROVIDERS: ATTEND Nurse Practitioner Adult Health
DX: Z13.9 Encounter for screening, unspecified (principal)

== ENCOUNTER 2018-05-18 08:38 | Emergency (ER) | payer OTHER ==
[~2018-05-18] VITALS: Ht 160 cm; Wt 68.4 kg
[2018-05-18 08:38] VITALS: BP 128/88
[~2018-05-18 08:38] MED LIST changes: +ERYT1OIN26 OU; -ERYT5OPO OU; -SENN1TAB2 PO; +SENN1TAB40 PO; +SENN1TAB41 PO; -SENN8.6T7 PO
[2018-05-18] MEDS ORDERED: predniSONE 20 MG TAB PO ONE (09:15)
[2018-05-18] MEDS ORDERED: PRED10TA2 PO (09:24)
== END 2018-05-18 09:37 | disposition home or self-care (01) ==
LOC: M ED 08:38
DX: L20.9 Atopic dermatitis, unspecified (principal); J45.909 Unspecified asthma, uncomplicated; F32.9 Major depressive disorder, single episode, unspecified; I63.9 Cerebral infarction, unspecified; R51 Headache; Z91.040 Latex allergy status; Z79.899 Other long term (current) drug therapy

== ENCOUNTER 2018-06-07 04:02 | Emergency (ER) | payer OTHER ==
[~2018-06-07] VITALS: Ht 162.6 cm; Wt 63.6 kg
[~2018-06-07 04:02] MED LIST changes: +PRED10TA2 PO
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
[2018-06-07] MEDS ORDERED: ONDANSETRON 4MG/2ML VIAL (J2405) IV ONE (05:15)
[2018-06-07] MEDS ORDERED: NS 1,000 ML IV ONE (05:15)
[2018-06-07] MEDS ORDERED: LIDOCAINE W/EPINEPHRINE 1% 20ML VIAL SC ONE (05:30)
[2018-06-07 05:55] LABS: INR 0.99; PROTHROMBIN TIME 13.2 SECONDS (12.1-14.4)
[2018-06-07 05:56] LABS: PARTIAL THROMBOPLASTIN TIME 21.5 SECONDS (25.4-37.6)
[2018-06-07 06:13] LABS: ALBUMIN 4.3 GM/DL (3.2-5.2); ALT/SGPT 54 U/L (12-78); AMYLASE 68 U/L (25-115); BILIRUBIN,DIRECT 0.2 MG/DL (0.0-0.2); BILIRUBIN,TOTAL 0.7 MG/DL (0.2-1.0); BLOOD UREA NITROGEN 14 MG/DL (7-18); CALCIUM LEVEL 9.5 MG/DL (8.5-10.1); CARBON DIOXIDE LEVEL 20 MEQ/L (21-32); CHLORIDE LEVEL 102 MEQ/L (98-107); CPK CREATINE PHOSPHOKINASE 682 U/L (26-192); CREATININE FOR GFR 0.79 MG/DL (0.55-1.30); ETHYL ALCOHOL (ETHANOL) 0.049 % (0.000-0.010); GLOMERULAR FILTRATION RATE > 60.0 (>51); GLUCOSE, FASTING 117 MG/DL (70-100); LIPASE 223 U/L (73-393); MB/CK RELATIVE INDEX 1.61 (< OR =4); POTASSIUM SERUM 3.4 MEQ/L (3.5-5.1); SODIUM LEVEL 138 MEQ/L (136-145); TOTAL PROTEIN 7.7 GM/DL (6.4-8.2); TROPONIN I 0.02 NG/ML (< 0.10)
[2018-06-07 06:39] VITALS: BP 118/82
[2018-06-07 06:54] LABS: BASO % 0.2 % (0.0-1.0); HEMATOCRIT 31.9 % (36.0-47.0); HEMOGLOBIN 11.1 g/dl (12.0-15.5); LYMPH % 5.9 % (24.0-44.0); MEAN CORPUSCULAR HGB CONC 34.8 g/dl (32.0-36.5); MEAN CORPUSCULAR VOLUME 94.9 fl (80.0-96.0); MONO # 0.9 10^3/uL (0.0-0.8); MONO % 5.4 % (0.0-5.0); NEUTROPHILS # 15.3 10^3/uL (1.8-7.7); NEUTROPHILS % 87.9 % (36.0-66.0); PLATELET COUNT, AUTOMATED 168 10^3/uL (150-450); RED BLOOD COUNT 3.36 10^6/uL (4.00-5.40); WHITE BLOOD COUNT 17.3 10^3/uL (4.0-10.0)
--- NOTE | 2018-06-07 07:57 | REP ---
Normal chest, 05:20 a.m., single AP upright view: Comparison is 06/24/2017. The lung quintana are clear. Cardiac size is normal. The adelina, mediastinum, skeletal structures are unremarkable. Impression: There are no acute cardiopulmonary findings. Electronically Signed by Jna Vazquez MD 06/07/2018 07:48 A
== END 2018-06-07 06:44 | disposition short-term general hospital (02) ==
LOC: M ED 04:02
DX: S06.5X0A Traumatic subdural hemorrhage without loss of consciousness, initial encounter (principal); S01.412A Laceration without foreign body of left cheek and temporomandibular area, initial encounter; S01.81XA Laceration without foreign body of other part of head, initial encounter; R41.82 Altered mental status, unspecified; X58.XXXA Exposure to other specified factors, initial encounter; Y92.480 Sidewalk as the place of occurrence of the external cause; I10 Essential (primary) hypertension; Z86.73 Personal history of transient ischemic attack (TIA), and cerebral infarction without residual deficits; J45.909 Unspecified asthma, uncomplicated; F41.9 Anxiety disorder, unspecified; F32.9 Major depressive disorder, single episode, unspecified; H54.62 Unqualified visual loss, left eye, normal vision right eye; Z79.899 Other long term (current) drug therapy
CPT/HCPCS: 70450; 70486; 71045; 72125; 80048; 80076; 82150; 82550; 82553; 83605; 83690; 85025; 85610; 85730; 86850; 86900; 86901; 93041; 94760; 96361; 96374; 99291; G0480; J2405

== ENCOUNTER → 2018-09-08 | Outpatient (CLI) | payer OTHER ==
[~2018-09-08] MED LIST changes: +TRAZ1TAB10 PO; -TRAZO50TA PO
--- NOTE | 2018-09-08 12:27 | REPMRS ---
Patient History The patient states she has not had a clinical breast exam in over a year. Patient is postmenopausal. No known family history of cancer. Digital Mammo Screening Bilat: September 08, 2018 - Exam #: [id number] Bilateral CC and MLO view(s) were taken. Technologist: Falguni Vargas, Technologist No prior studies available for comparison. FINDINGS: There are scattered fibroglandular densities. There is no evidence of dominant mass, architectural distortion, or grouped microcalcification typical of malignancy. 3-D tomosynthesis shows no additional findings. Assessment: BI-RADS/ACR category 1 mammogram. Negative Mammogram. Recommendation Routine screening mammogram of both breasts in 1 year (for women over age 40). This patient's Lifetime Breast Cancer RIsk is estimated at 8.4 %. This mammogram was interpreted with the aid of an FDA-approved computer-aided dectection system. Electronically Signed By: Jamal Copeland MD 09/08/18 [id number]
== END ==
LOC: M RAD 09:14
PROVIDERS: ATTEND Nurse Practitioner Adult Health
DX: Z13.9 Encounter for screening, unspecified (principal); Z78.0 Asymptomatic menopausal state; R92.2 Inconclusive mammogram

== ENCOUNTER → 2018-09-15 | Outpatient (REF) | payer OTHER ==
[2018-09-15 18:26] LABS: BASO % 0.5 % (0.0-1.0); EOS # 0.1 10^3/uL (0.0-0.50); EOS % 0.7 % (0.0-3.0); HEMATOCRIT 39.3 % (36.0-47.0); HEMOGLOBIN 13.2 g/dl (12.0-15.5); LYMPH # 2.2 10^3/uL (1.5-4.5); LYMPH % 29.4 % (24.0-44.0); MEAN CORPUSCULAR HEMOGLOBIN 31.2 pg (27.0-33.0); MEAN CORPUSCULAR HGB CONC 33.6 g/dl (32.0-36.5); MEAN CORPUSCULAR VOLUME 92.9 fl (80.0-96.0); MONO # 0.5 10^3/uL (0.0-0.8); MONO % 6.8 % (0.0-5.0); NEUTROPHILS # 4.7 10^3/uL (1.8-7.7); NEUTROPHILS % 62.2 % (36.0-66.0); PLATELET COUNT, AUTOMATED 404 10^3/uL (150-450); RED BLOOD COUNT 4.23 10^6/uL (4.00-5.40); WHITE BLOOD COUNT 7.5 10^3/uL (4.0-10.0)
[2018-09-15 18:37] LABS: ALBUMIN 4.3 GM/DL (3.2-5.2); ALT/SGPT 44 U/L (12-78); BILIRUBIN,TOTAL 0.4 MG/DL (0.2-1.0); BLOOD UREA NITROGEN 17 MG/DL (7-18); CARBON DIOXIDE LEVEL 27 MEQ/L (21-32); CHLORIDE LEVEL 108 MEQ/L (98-107); CREATININE FOR GFR 0.78 MG/DL (0.55-1.30); GLOMERULAR FILTRATION RATE > 60.0 (>51); GLUCOSE, FASTING 107 MG/DL (70-100); POTASSIUM SERUM 3.8 MEQ/L (3.5-5.1); SODIUM LEVEL 141 MEQ/L (136-145); THYROID STIMULATING HORMONE 0.794 uIU/ML (0.358-3.740); TOTAL PROTEIN 8.1 GM/DL (6.4-8.2)
[2018-09-15 19:26] LABS: HEMOGLOBIN A1c 5.8 %
== END ==
LOC: M LAB REF 17:19
PROVIDERS: ATTEND Nurse Practitioner Adult Health
DX: Z13.9 Encounter for screening, unspecified (principal)

== ENCOUNTER 2018-11-18 07:54 | Emergency (ER) | payer OTHER ==
[~2018-11-18] VITALS: Ht 162.6 cm; Wt 69.6 kg
[~2018-11-18 07:54] MED LIST changes: +CHOL100029 PO; +HYDR1TAB33 PO; -HYDRO50TAB PO; +SENN-53 PO; -SENN1TAB40 PO; -TRAZ-163 PO; +TRAZ-257 PO; -VITAD1000T PO
[2018-11-18] MEDS ORDERED: CLOB0.0548 TOP (08:08)
[2018-11-18] MEDS ORDERED: PROT0.1O TOP (09:05)
[2018-11-18] MEDS ORDERED: PRED20TA PO (09:13)
[2018-11-18 09:24] VITALS: BP 120/83
[2019-01-18] MEDS ORDERED: TRAZ150T90 PO (11:30)
[2019-02-01] MEDS ORDERED: HYDR-3713 PO (13:13)
== END 2018-11-18 09:30 | disposition home or self-care (01) ==
LOC: M ED 07:54
DX: L30.9 Dermatitis, unspecified (principal); J45.909 Unspecified asthma, uncomplicated; Z86.73 Personal history of transient ischemic attack (TIA), and cerebral infarction without residual deficits; R56.9 Unspecified convulsions; R51 Headache; I10 Essential (primary) hypertension; H54.62 Unqualified visual loss, left eye, normal vision right eye; F32.9 Major depressive disorder, single episode, unspecified; F41.9 Anxiety disorder, unspecified; Z79.899 Other long term (current) drug therapy; Z91.040 Latex allergy status

== ENCOUNTER → 2019-01-23 | Outpatient (REF) | payer OTHER, MEDICAID ==
[~2019-01-23] MED LIST changes: +CLOB0.0548 TOP; +PROT0.1O TOP; +TRAZ-163 PO; -TRAZ-257 PO; +TRAZ150T90 PO
[2019-01-23 18:22] LABS: BASO % 0.5 % (0.0-1.0); EOS # 0.1 10^3/uL (0.0-0.5); EOS % 0.8 % (0.0-3.0); HEMATOCRIT 40.5 % (36.0-47.0); HEMOGLOBIN 13.4 g/dl (12.0-15.5); LYMPH # 1.5 10^3/uL (1.5-5.0); LYMPH % 24.8 % (24.0-44.0); MEAN CORPUSCULAR HEMOGLOBIN 31.1 pg (27.0-33.0); MEAN CORPUSCULAR HGB CONC 33.1 g/dl (32.0-36.5); MONO # 0.6 10^3/uL (0.0-0.8); MONO % 10.1 % (0.0-5.0); NEUTROPHILS # 3.8 10^3/uL (1.5-8.5); NEUTROPHILS % 63.5 % (36.0-66.0); PLATELET COUNT, AUTOMATED 317 10^3/uL (150-450); RED BLOOD COUNT 4.31 10^6/uL (4.00-5.40)
[2019-01-23 18:28] LABS: ALBUMIN 4.1 GM/DL (3.2-5.2); ALT/SGPT 35 U/L (12-78); BILIRUBIN,TOTAL 0.6 MG/DL (0.2-1.0); BLOOD UREA NITROGEN 8 MG/DL (7-18); CALCIUM LEVEL 9.7 MG/DL (8.5-10.1); CARBON DIOXIDE LEVEL 26 MEQ/L (21-32); CHLORIDE LEVEL 102 MEQ/L (98-107); GLOMERULAR FILTRATION RATE > 60.0 (>51); GLUCOSE, FASTING 108 MG/DL (70-100); POTASSIUM SERUM 3.5 MEQ/L (3.5-5.1); SODIUM LEVEL 138 MEQ/L (136-145); TOTAL PROTEIN 7.9 GM/DL (6.4-8.2)
== END ==
LOC: M LAB REF 16:33
PROVIDERS: ATTEND Nurse Practitioner Adult Health
DX: Z01.812 Encounter for preprocedural laboratory examination (principal)

== ENCOUNTER → 2019-05-03 | Outpatient (REF) | payer OTHER, MEDICAID ==
[~2019-05-03] MED LIST changes: +HYDR-3713 PO; -MONT10TA2; -MONT10TA2 PO; +MONT10TA4; +MONT10TA4 PO; -TRAZ-163 PO; +TRAZ-257 PO
[2019-05-03 15:43] LABS: HEMOGLOBIN A1c 5.5 %
== END ==
LOC: M LAB REF 13:16
PROVIDERS: ATTEND Nurse Practitioner Adult Health
DX: Z13.9 Encounter for screening, unspecified (principal)

== ENCOUNTER 2019-08-11 05:42 | Emergency (ER) | payer MEDICAID, OTHER ==
[~2019-08-11] VITALS: Ht 160 cm; Wt 71.3 kg
[~2019-08-11 05:42] MED LIST changes: -ERYT1OIN26 OU; +ERYT5OIN25 OU
[2019-08-11 05:44] VITALS: BP 120/76
[2019-08-11] MEDS ORDERED: OXYB5TAB10 PO (05:53)
[2019-08-11] MEDS ORDERED: diphenhydrAMINE CREAM 30GM TOP STA (06:31)
[2019-08-11] MEDS ORDERED: PRED20TA PO (06:32)
[2019-08-11] MEDS ORDERED: diphenhydrAMINE 25MG CAP PO ONE (06:45)
[2019-08-11] MEDS ORDERED: predniSONE 20 MG TAB PO ONE (06:45)
== END 2019-08-11 07:07 | disposition home or self-care (01) ==
LOC: M ED 05:42
DX: L56.2 Photocontact dermatitis [berloque dermatitis] (principal)

== ENCOUNTER 2020-08-05 16:43 | Observation (INO) | payer MEDICAID, MEDICARE, OTHER, SELFPAY ==
[~2020-08-05] VITALS: Ht 162.6 cm; Wt 62.1 kg
[~2020-08-05 16:43] MED LIST changes: -AMLO10TA5 PO; +AMLO1TAB25 PO; +MONT10TA10; +MONT10TA10 PO; -MONT10TA4; -MONT10TA4 PO
[2020-08-05] MEDS ORDERED: LEVE750T5 PO (16:56)
[2020-08-05 18:26] LABS: BASO # 0.1 10^3/uL (0.0-0.2); BASO % 0.7 % (0.0-1.0); EOS # 0.2 10^3/uL (0.0-0.5); EOS % 1.2 % (0.0-3.0); HEMATOCRIT 41.2 % (36.0-47.0); HEMOGLOBIN 14.7 g/dl (12.0-15.5); LYMPH # 2.2 10^3/uL (1.5-5.0); LYMPH % 17.5 % (24.0-44.0); MEAN CORPUSCULAR HEMOGLOBIN 33.7 pg (27.0-33.0); MEAN CORPUSCULAR HGB CONC 35.7 g/dl (32.0-36.5); MEAN CORPUSCULAR VOLUME 94.5 fl (80.0-96.0); MONO # 1.6 10^3/uL (0.0-0.8); MONO % 12.6 % (2.0-8.0); NEUTROPHILS # 8.6 10^3/uL (1.5-8.5); NEUTROPHILS % 67.4 % (36.0-66.0); PLATELET COUNT, AUTOMATED 550 10^3/uL (150-450); RED BLOOD COUNT 4.36 10^6/uL (4.00-5.40)
[2020-08-05 18:52] LABS: ALT/SGPT 21 U/L (12-78); BILIRUBIN,DIRECT 0.3 MG/DL (0.0-0.2); BILIRUBIN,TOTAL 0.6 MG/DL (0.2-1.0); LIPASE 1572 U/L (73-393); TOTAL PROTEIN 8.5 GM/DL (6.4-8.2)
[2020-08-05 19:03] LABS: WHITE BLOOD COUNT 12.8 10^3/uL (4.0-10.0)
[2020-08-05 19:10] LABS: BLOOD UREA NITROGEN 14 MG/DL (7-18); CALCIUM LEVEL 10.8 MG/DL (8.5-10.1); CARBON DIOXIDE LEVEL 29 MEQ/L (21-32); CHLORIDE LEVEL 84 MEQ/L (98-107); GLOMERULAR FILTRATION RATE > 60.0 (>51); GLUCOSE, FASTING 128 MG/DL (70-100); POTASSIUM SERUM 2.5 MEQ/L (3.5-5.1); SODIUM LEVEL 126 MEQ/L (136-145)
[2020-08-05] MEDS ORDERED: ISOVUE-370 76% 100ML VIAL As Ordered ONE (19:18)
[2020-08-05 19:24] LABS: ETHYL ALCOHOL (ETHANOL) 0.005 % (0.000-0.010)
[2020-08-05] MEDS ORDERED: NS 1,000 ML IV ONE (19:55)
[2020-08-05] MEDS ORDERED: AMLO1TAB25 PO (20:21)
[2020-08-05] MEDS ORDERED: OXYB10TA23 PO (20:22)
[2020-08-05] MEDS ORDERED: D31000TA2 PO (20:22)
[2020-08-05] MEDS ORDERED: CYAN100050 PO (20:22)
[2020-08-05] MEDS ORDERED: VITA-158 PO (20:22)
--- NOTE | 2020-08-05 20:26 | REPVR ---
PROCEDURE INFORMATION: Exam: CT Head Without Contrast Exam date and time: 08/05/2020 7:28 PM Age: 59 years old Clinical indication: Other: N/v; Additional info: HX remote sdh, nausea and vomiting TECHNIQUE: Imaging protocol: Computed tomography of the head without contrast. Radiation optimization: All CT scans at this facility use at least one of these dose optimization techniques: automated exposure control; mA and/or kV adjustment per patient size (includes targeted exams where dose is matched to clinical indication); or iterative reconstruction. COMPARISON: CT Head without contrast 06/07/2018 4:12 AM MRI-Brain without Contrast 08/23/2017 12:31:53 PM FINDINGS: Brain: The brain demonstrates mild generalized volume loss, prominent for age. No hemorrhage or edema seen. Cerebral ventricles: The ventricles are prominent, stable compared to the prior study. Paranasal sinuses: Visualized sinuses are unremarkable. No fluid levels. Mastoid air cells: Visualized mastoid air cells are well aerated. Bones/joints: Unremarkable. No acute fracture. Soft tissues: Unremarkable. IMPRESSION: 1. No acute intracranial abnormality seen. 2. Ventricular enlargement is again demonstrated which may reflect volume loss though a component of normal pressure hydrocephalus is possible. Electronically signed by: Ashlyn Zee On 08/05/2020 20:26:11 PM
--- NOTE | 2020-08-05 20:36 | REPVR ---
PROCEDURE INFORMATION: Exam: CT Abdomen And Pelvis With Contrast Exam date and time: 08/05/2020 7:28 PM Age: 59 years old Clinical indication: Condition or disease; Pancreatic condition; Pancreatitis TECHNIQUE: Imaging protocol: Computed tomography of the abdomen and pelvis with contrast. Radiation optimization: All CT scans at this facility use at least one of these dose optimization techniques: automated exposure control; mA and/or kV adjustment per patient size (includes targeted exams where dose is matched to clinical indication); or iterative reconstruction. Contrast material: ISOVUE 370; Contrast volume: 100 ml; Contrast route: INTRAVENOUS (IV); COMPARISON: No relevant prior studies available. FINDINGS: Liver: There is hepatomegaly and hepatic steatosis. Gallbladder and bile ducts: Gallbladder is distended. No gallbladder wall calculi or biliary duct dilation. Pancreas: Normal. No ductal dilation. Spleen: Normal. No splenomegaly. Adrenal glands: Normal. No mass. Kidneys and ureters: Unremarkable. No calculi or hydronephrosis. Stomach and bowel: There is colonic diverticulosis without evidence of diverticulitis. The small bowel is unremarkable. No bowel obstruction. Appendix: No evidence of appendicitis. Intraperitoneal space: No free air. No significant fluid collection. Vasculature: Unremarkable. No abdominal aortic aneurysm. Lymph nodes: Unremarkable. No enlarged lymph nodes. Urinary bladder: Unremarkable as visualized. Reproductive: Unremarkable as visualized. Bones/joints: There are degenerative changes in the spine and pelvis. Soft tissues: Unremarkable. IMPRESSION: 1. Hepatic steatosis and hepatomegaly. 2. Colonic diverticulosis without evidence of diverticulitis. 3. Distended gallbladder without secondary signs of cholecystitis. Consider gallbladder ultrasound follow-up if there is concern for acute cholecystitis. Electronically signed by: Ubaldo Eubanks On 08/05/2020 20:35:58 PM
[2020-08-05 21:23] LABS: RSV AMPLIFICATION NEGATIVE (NEGATIVE)
[2020-08-05] MEDS ORDERED: POTASSIUM CHLORIDE 10 MEQ SR TABLET PO ONE (21:30)
[2020-08-05] MEDS ORDERED: ACETAMINOPHEN TAB 650MG DOSE (2X325MG) PO PRN (21:30)
[2020-08-05] MEDS ORDERED: MAALOX 30 ML SUSP *UDC PO PRN (21:30)
[2020-08-05] MEDS ORDERED: ONDANSETRON 4MG/2ML VIAL IV PRN (21:30)
[2020-08-05] MEDS ORDERED: MOM 30ML SUSPENSION UDC PO PRN (21:30)
[2020-08-05] MEDS: KCL 40MEQ in NS 1000ML 1,000 ML IV SCH (21:56)
[2020-08-05] MEDS: levETIRAcetam 250MG TABLET (KEPPRA) PO SCH (21:56)
[2020-08-05] MEDS ORDERED: SUCRALFATE 1 GM TAB PO ONE (22:05)
--- NOTE | 2020-08-05 22:26 | IPNPDOC ---
Text Note Date of Service The patient was seen on 08/05/20. VS,Fishbone, I+O VS, Fishbone, I+O Laboratory Tests 08/05/20 18:10 Vital Signs Date Time Temp Pulse Resp B/P (MAP) Pulse Ox O2 Delivery O2 Flow Rate FiO2 08/05/20 22:15 100 16 114/75 (88) 97 Room Air 08/05/20 16:43 97.5 ANDRÉS REA MD Aug 05, 2020 22:26
[2020-08-05 22:47] LABS: HEPATITIS A ANTIBODY IGM NEGATIVE (NEGATIVE); HEPATITIS B CORE ANTIBODY IGM NEGATIVE (NEGATIVE); HEPATITIS B SURFACE ANTIGEN NEGATIVE (NEGATIVE); HEPATITIS C VIRUS ABY INDEX < 0.0 INDEX (<0.8)
--- NOTE | 2020-08-05 23:15 | HPEPDOC ---
[facility] Medical History & Physical Date of Admission Aug 05, 2020 Date of Service: Aug 05, 2020 Attending Physician: ANDRÉS REA MD History and Physical CHIEF COMPLAINT: [59 y/o female c/o n/v x2 weeks] HISTORY OF PRESENT ILLNESS: [This is a 59 y/o female with a pmh of cva x2, seizures, hld, htn, asthma who reports to the ED with a cc of nausea and vomiting x2 weeks. Patient states that her symptoms came on suddenly and believes they may have improved somewhat, but still feels very ill. Patient s tates that she is vomiting approx 3 times a day and lately has noted some blood in the emesis. Patient states that nothing seems to bring on the episodes of vomiting and they simply happen. Patient states that she thinks her symptoms are partially due to stress because she has been trying to move back home to [place] and has run into issues with that. Patient denies fever, chills, abd pain, constipation, diarrhea, headaches. Patient admits to recent poor oral intake.] PAST MEDICAL HISTORY: 1. [See HPI PAST SURGICAL HISTORY: 1. [Unspecified ortho surgery to foot]. SOCIAL HISTORY: Tobacco use:[Denies] ETOH: [Denies] Illicit drug use: [Denies] FAMILY HISTORY: Reviewed - none pertinent ALLERGIES: Please see below. REVIEW OF SYSTEMS: CONSTITUTIONAL: [See HPI]. HEENT: [Denies URI sx]. CARDIOVASCULAR: [Denies chest pain, palpitations]. RESPIRATORY: [Denies sob, wheezing]. GASTROINTESTINAL: [See HPI]. GENITOURINARY: [Denies dysuria]. SKIN: [Denies rash]. MUSCULOSKELETAL: [Denies acute joint/back pain]. NEUROLOGICAL: [Denies syncope, paresthesias]. ENDOCRINE: [Denies hx of DM]. HEMATOLOGIC/LYMPHATIC: [Denies easy bruising]. HOME MEDICATIONS: Please see below. PHYSICAL EXAMINATION: VITAL SIGNS: Please see below. GENERAL APPEARANCE: [This is a fatigued appearing 59 y/o male. She does not appear to be in any acute respiratory distress.]. HEENT: [No mass or lesion. EOMI. No scleral icterus. Nares patent. Oral mucosa dry without erythema.]. CARDIOVASCULAR: [Tachy rate, regular rhythm. No murmurs, rubs, gallops]. LUNGS: [Good air flow appreciated b/l. No wheezing, rales, rhonchi.]. ABDOMEN: [Soft, nontender]. MUSCULOSKELETAL: [No joint deformity]. EXTREMITIES: [No peripheral edema. No overlying skin changes. Pulses intact.]. NEUROLOGICAL: [Speech clear. A+Ox3. No focal deficits.]. PSYCHIATRIC: [Mood and affect appear appropriate.]. LABORATORY DATA: See below. IMAGING: [CT Abd/pelvis: FINDINGS: Liver: There is hepatomegaly and hepatic steatosis. Gallbladder and bile ducts: Gallbladder is distended. No gallbladder wall calculi or biliary duct dilation. Pancreas: Normal. No ductal dilation. Spleen: Normal. No splenomegaly. Adrenal glands: Normal. No mass. Kidneys and ureters: Unremarkable. No calculi or hydronephrosis. Stomach and bowel: There is colonic diverticulosis without evidence of diverticulitis. The small bowel is unremarkable. No bowel obstruction. Appendix: No evidence of appendicitis. Intraperitoneal space: No free air. No significant fluid collection. Vasculature: Unremarkable. No abdominal aortic aneurysm. Lymph nodes: Unremarkable. No enlarged lymph nodes. Urinary bladder: Unremarkable as visualized. Reproductive: Unremarkable as visualized. Bones/joints: There are degenerative changes in the spine and pelvis. Soft tissues: Unremarkable. IMPRESSION: 1. Hepatic steatosis and hepatomegaly. 2. Colonic diverticulosis without evidence of diverticulitis. 3. Distended gallbladder without secondary signs of cholecystitis. Consider gallbladder ultrasound follow-up if there is concern for acute cholecystitis. Head CT: FINDINGS: Brain: The brain demonstrates mild generalized volume loss, prominent for age. No hemorrhage or edema seen. Cerebral ventricles: The ventricles are prominent, stable compared to the prior study. Paranasal sinuses: Visualized sinuses are unremarkable. No fluid levels. Mastoid air cells: Visualized mastoid air cells are well aerated. Bones/joints: Unremarkable. No acute fracture. Soft tissues: Unremarkable. IMPRESSION: 1. No acute intracranial abnormality seen. 2. Ventricular enlargement is again demonstrated which may reflect volume loss though a component of normal pressure hydrocephalus is possible. Gallbladder US: FINDINGS: Liver: Liver is echogenic. No liver masses. Gallbladder: Gallbladder is distended. Layering sludge in the gallbladder lumen. No gallbladder wall thickening or pericholecystic fluid. Common bile duct: Normal. No stones. No biliary duct dilation. Pancreas: Visualized pancreas is unremarkable. Right kidney: Normal. No mass. No hydronephrosis. IMPRESSION: 1. Distended gallbladder with intraluminal sludge. No signs of acute cholecystitis or biliary duct dilation. 2. Hepatic steatosis. ] MICROBIOLOGY: Please see below. ASSESSMENT: [This is a 59 y/o female with a pmh of cva x2, seizures, hld, htn, asthma who reports to the ED with a cc of nausea and vomiting x2 weeks. Patient states that her symptoms came on suddenly and believes they may have improved so mewhat, but still feels very ill. Lab workup notable for hyponatremia of 126, potassium of 2.5, lipase of 1572, ast:alt 2:1, elevated ggt of 1304.]. . PLAN: 1. [N/V - Etiology unclear. Labs somewhat indicative of alcohol abuse d/t present electrolyte abnormalities, elevated ggt and ast:alt of 2:1, however patient denies this. Patient may have mild alcoholic pancreatitis vs. other - Imaging mostly unrevealing save biliary sludge. - ua and uds pending - Will begin IVF d/t dehydration - Clear liquid diet - Zofran for n/v - Will begin protonix bid and carafate d/t prolonged n/v - Admit to med surg w tele 2. Hypokalemia - 2/2 dehydration, vomiting - Patient received 40 meQ of K in the ed - Will run ns with 40meQ of k overnight as maintenance fluid - recheck bmp in the morning - pt on tele 3. Hyponatremia - 2/2 dehydration - maintenance fluids - recheck bmp in the morning 4. Seizures - continue keppra 5. HTN - continue amlodipine 6. Overactive bladder - continue oxybutynin DVT prophylaxis - Teds and scds]. Vital Signs Vital Signs Date Time Temp Pulse Resp B/P (MAP) Pulse Ox O2 Delivery O2 Flow Rate FiO2 08/05/20 22:46 100 16 113/56 (75) 94 Room Air 08/05/20 16:43 97.5 Laboratory Data Labs 24H Laboratory Tests 2 08/05/20 18:10: Immature Granulocyte % (Auto) 0.6, Neutrophils (%) (Auto) 67.4H, Lymphocytes (%) (Auto) 17.5L, Monocytes (%) (Auto) 12.6H, Eosinophils (%) (Auto) 1.2, Basophils (%) (Auto) 0.7, Neutrophils # (Auto) 8.6H, Lymphocytes # (Auto) 2.2, Monocytes # (Auto) 1.6H, Eosinophils # (Auto) 0.2, Basophils # (Auto) 0.1, Nucleated Red Blood Cells % (auto) 0.2H, Anion Gap 13, Glomerular Filtration Rate > 60.0, Calcium Level 10.8H, Total Bilirubin 0.6, Direct Bilirubin 0.3H, Gamma Glutamyl Transferase 1304H, Aspartate Amino Transf (AST/SGOT) 46H, Alanine Aminotransferase (ALT/SGPT) 21, Alkaline Phosphatase 207H, Total Protein 8.5H, Albumin 4.0, Albumin/Globulin Ratio 0.9L, Lipase 1572H, Ethyl Alcohol Level 0.005, Hepatitis A IgM Antibody NEGATIVE, Hepatitis B Surface Antigen NEGATIVE, Hepatitis B Core IgM Antibody NEGATIVE, Hepatitis C Antibody Index < 0.0 08/05/20 20:00: Coronavirus (COVID-19)(PCR) NEGATIVE, Influenza Type A (RT-PCR) NEGATIVE, Influenza Type B (RT-PCR) NEGATIVE, Respiratory Syncytial Virus (PCR) NEGATIVE CBC/BMP Laboratory Tests 08/05/20 18:10 Home Medications Scheduled Amlodipine Besylate (Amlodipine Besylate) 10 Mg Tablet, 10 MG PO DAILY Ascorbic Acid (Vitamin C) 500 Mg Tablet, 500 MG PO DAILY Cholecalciferol (Vitamin D3) (Vitamin D3) 1,000 Unit Tablet, 1,000 UNITS PO DAILY Cyanocobalamin (Vitamin B-12) (Vitamin B-12) 1,000 Mcg Tablet, 1,000 MCG PO DAILY Levetiracetam (Levetiracetam) 750 Mg Tablet, 750 MG PO BID Oxybutynin Chloride (Oxybutynin Chloride ER) 10 Mg Tab.er.24, 10 MG PO DAILY Allergies Coded Allergies: latex (Verified Allergy, Intermediate, rash, 01/31/19) Uncoded Allergies: TIDE (Allergy, Intermediate, rash, 01/18/19) A-FIB/CHADSVASC A-FIB History Current/History of A-Fib/PAF?: No Attending Note Attending Note time of service 1045pm Ms. Engel is a 59 yr old F w a hx of subdural hematoma, CVA, HTN, psoriatic arthritis, asthma, anxiety, depression, fatty liver and diverticulosis who presented w c/o n/v for two weeks w/o the presence of abdominal or back pain. Her physical exam was only remarkable for a slim build Admitting diagnoses: #SIRS #Vomiting of unclear cause #Elevated lipase of unclear cause (doesnt meet [place] criteria to diagnose pancreatitis) # Hypokalemia, Hyponatremia and Hyochloremia 2/2 vomiting Plan: f/u work-up for infection/ IVF/ f/u repeat lytes & UDS Rest per [facility] Paiz H&P LATE ENTRY 507AM Vomiting may be related to THC use; the day time team may follow up to quantify her use. PETER IBARRA Aug 05, 2020 23:15 ANDRÉS REA MD Aug 06, 2020 05:08
--- NOTE | 2020-08-05 23:16 | REPVR ---
PROCEDURE INFORMATION: Exam: US Abdomen, Limited; Right Upper Quadrant Exam date and time: 08/05/2020 11:02 PM Age: 59 years old Clinical indication: Nausea and vomiting; Additional info: Gallbladder distention on CT TECHNIQUE: Imaging protocol: US abdomen. Real time ultrasound with image documentation. Limited exam focused on the right upper quadrant. COMPARISON: CT ABD/PEL W/IV CONTRAST ONLY 08/05/2020 7:20 PM FINDINGS: Liver: Liver is echogenic. No liver masses. Gallbladder: Gallbladder is distended. Layering sludge in the gallbladder lumen. No gallbladder wall thickening or pericholecystic fluid. Common bile duct: Normal. No stones. No biliary duct dilation. Pancreas: Visualized pancreas is unremarkable. Right kidney: Normal. No mass. No hydronephrosis. IMPRESSION: 1. Distended gallbladder with intraluminal sludge. No signs of acute cholecystitis or biliary duct dilation. 2. Hepatic steatosis. Electronically signed by: Ubaldo Eubanks On 08/05/2020 23:16:07 PM
[2020-08-05 23:29] VITALS: BP 118/77
[2020-08-05] MEDS: PANTOPRAZOLE 40MG VIAL (C9113 PER 1) IV SCH (23:58)
[2020-08-06 00:01] LABS: APPEARANCE, URINE HAZY (CLEAR); BACTERIA, URINE AUTO 3+ (NEGATIVE); BILIRUBIN, URINE AUTO NEGATIVE (NEGATIVE); BLOOD, URINE BLOOD NEGATIVE (NEGATIVE); COLOR, URINE YELLOW (YELLOW); GLUCOSE, URINE (UA) AUTO NEGATIVE (NEGATIVE); KETONE, URINE AUTO 1+ mg/dL (NEGATIVE); LEUKOCYTE ESTERASE, URINE AUTO 2+ (NEGATIVE); NITRITE, URINE AUTO POSITIVE (NEGATIVE); PROTEIN, URINE AUTO NEGATIVE (NEGATIVE); RBC, URINE AUTO 8 /HPF (0-3); SQUAMOUS EPITHELIAL CELL UR AU 2 /HPF (0-6); WBC, URINE AUTO 14 /HPF (0-3)
[2020-08-06 00:04] LABS: SPECIFIC GRAVITY URINE AUTO >1.060 (1.002-1.035)
[2020-08-06 02:26] LABS: HEMATOCRIT 36.1 % (36.0-47.0); MEAN CORPUSCULAR HEMOGLOBIN 33.9 pg (27.0-33.0); MEAN CORPUSCULAR HGB CONC 35.2 g/dl (32.0-36.5); MEAN CORPUSCULAR VOLUME 96.3 fl (80.0-96.0); RED BLOOD COUNT 3.75 10^6/uL (4.00-5.40); WHITE BLOOD COUNT 10.5 10^3/uL (4.0-10.0)
[2020-08-06 02:31] LABS: HEMOGLOBIN 12.7 g/dl (12.0-15.5); PLATELET COUNT, AUTOMATED 380 10^3/uL (150-450)
[2020-08-06 02:34] LABS: OSMOLALITY URINE 462 MOSM/KG (50-1400)
[2020-08-06 02:51] LABS: OSMOLALITY SERUM 272 MOSM/KG (275-295)
[2020-08-06 02:54] LABS: AMPHETAMINES LEVEL URINE NEGATIVE (NEGATIVE); BARBITURATES URINE NEGATIVE (NEGATIVE); BENZODIAZEPINES URINE NEGATIVE (NEGATIVE); CANNABINOIDS URINE POSITIVE (NEGATIVE); COCAINE METABOLITE URINE NEGATIVE (NEGATIVE); METHADONE URINE NEGATIVE (NEGATIVE); OPIATES URINE NEGATIVE (NEGATIVE); PHENCYCLIDINE URINE NEGATIVE (NEGATIVE); SODIUM,RANDOM URINE 10 MEQ/L
[2020-08-06 04:36] LABS: ALT/SGPT 17 U/L (12-78); BILIRUBIN,TOTAL 0.6 MG/DL (0.2-1.0); BLOOD UREA NITROGEN 9 MG/DL (7-18); CALCIUM LEVEL 8.9 MG/DL (8.5-10.1); CARBON DIOXIDE LEVEL 26 MEQ/L (21-32); CHLORIDE LEVEL 98 MEQ/L (98-107); CREATININE FOR GFR 0.66 MG/DL (0.55-1.30); ETHYL ALCOHOL (ETHANOL) < 0.003 % (0.000-0.010); GLOMERULAR FILTRATION RATE > 60.0 (>51); GLUCOSE, FASTING 121 MG/DL (70-100); MAGNESIUM LEVEL 1.9 MG/DL (1.8-2.4); POTASSIUM SERUM 3.8 MEQ/L (3.5-5.1); SODIUM LEVEL 134 MEQ/L (136-145); THYROID STIMULATING HORMONE 0.979 uIU/ML (0.358-3.740); TOTAL PROTEIN 6.6 GM/DL (6.4-8.2)
[2020-08-06 06:00] VITALS: BP 117/76
[2020-08-06] MEDS: PANTOPRAZOLE 40MG VIAL (C9113 PER 1) IV SCH ×2 (08:29→20:21)
[2020-08-06] MEDS: KCL 40MEQ in NS 1000ML 1,000 ML IV SCH ×2 (08:29→17:55)
[2020-08-06] MEDS: DOCUSATE SODIUM 100MG CAPSULE PO SCH ×2 (08:30→20:20)
[2020-08-06] MEDS: oxyBUTYnin *DITROPAN XL* 5 MG TABCR PO SCH (08:30)
[2020-08-06] MEDS: levETIRAcetam 250MG TABLET (KEPPRA) PO SCH ×2 (08:30→20:20)
[2020-08-06] MEDS: ASCORBIC ACID 500 MG TAB PO SCH (08:30)
[2020-08-06] MEDS: SUCRALFATE 1 GM TAB PO SCH ×2 (08:30→20:21)
[2020-08-06 08:32] VITALS: BP 108/71
[2020-08-06] MEDS ORDERED: FLUBLOK(EGG FREE)(QUAD)INFLUENZA VACC 0.5ML SYRINGE 18YRS & OLDER IM ONE (09:00)
[2020-08-06 14:00] VITALS: BP 106/71
[2020-08-06] MEDS ORDERED: ONDANSETRON 4 MG ORAL DISINTEGRATING TAB PO PRN (14:20)
--- NOTE | 2020-08-06 14:23 | IPNPDOC ---
Text Note Date of Service The patient was seen on 08/06/20. NOTE SUBJECTIVE: PHYSICAL EXAMINATION: VITAL SIGNS: see below GENERAL APPEARANCE: Awake, alert, oriented x 3. NAD HEENT: Atraumatic, normocephalic. Eyes are anicteric. Mucous membranes are dry CARDIOVASCULAR: sinus, regular rhythm, no noted murmurs, rubs or gallops LUNGS: CTAB ABDOMEN: Normoactive sounds, soft, nondistended. Mild epigastric TTP that elicits nausea EXTREMITIES: No lower extremity edema, no apparent rashes/petechiae. NEUROLOGICAL: Awake, speech is clear, AOx3, good strength throughout LABORATORY DATA: See Below IMAGING: No recent studies. ASSESSMENT: 59 y/o female with PMHx of CVA x2, seizures, HLD, HTN, and asthma presenting with 2 weeks of n/v and poor po intake in conjunction with congestion and a slightly productive cough. Labs c/w hyponatremia and hypokalemia now resolved. PLAN: N/V: Labs demonstrating possible pancreatitis, and US with gallbladder/biliary sludge. Possible THC hyperemesis, or post tussive emesis based on review of history. Lipase has trended downwards and patient has tolerated regular diet this morning without difficulties. - Continue protonix BID and Carafate - Start on Omeprazole for home - Transition to Zofran 4mg ODT PRN Nausea - Regular diet Hypokalemia: Resolved following repletion - recheck labs in the am - d/c tele Hyponatremia: Resolved following IVF and return to regular diet. - D/c maintenance fluids - Recheck labs in the am Seizure hx: continue Keppra HLD/HTN: Continue home meds Dispo: Likely home in the morning with follow up with PCM in 5 days Diet: Regular diet DVT Prophy: None Consults: None VS,Fishbone, I+O VS, Fishbone, I+O Laboratory Tests 08/05/20 18:10 08/06/20 02:17 Vital Signs Date Time Temp Pulse Resp B/P (MAP) Pulse Ox O2 Delivery O2 Flow Rate FiO2 08/06/20 08:32 91 108/71 08/06/20 06:00 97.8 16 96 Room Air I&O- Last 24 Hours up to 6 AM 08/06/20 06:00 Intake Total 1975 ml Output Total 425 ml Balance 1550 ml JALEN BETANCUR MD MPH Aug 06, 2020 14:09
[2020-08-06] MEDS ORDERED: RAMELTEON 8 MG TAB (ROZEREM) PO PRN (20:35)
--- NOTE | 2020-08-06 20:49 | ECGEPIP ---
[facility] - ED Test Date: 2020-08-05 Pat Name: CJ ROSAS Department: Room: [place] [address] Gender: Female Case Supervisor: LEAH : 1960 Requested By: DONYA Ferris Order Number: [id number] Reading MD: Elisha Yousif Measurements Intervals [place] Rate: 111 P: 68 WI: 140 QRS: 46 QRSD: 84 T: 90 QT: 376 QTc: 511 Interpretive Statements Sinus tachycardia with premature atrial complexes Possible Left atrial enlargement Left ventricular hypertrophy with repolarization abnormality ( Sokolow-Mcintyre ) vs i ischemia decreased rate 08/23/17 Electronically Signed on 08-06-2020 20:49:45 EDT by Elisha Yousif
[2020-08-06] MEDS ORDERED: QUEtiapine FUMARATE 12.5 MG HALF-TAB PO SCH (21:00)
[2020-08-06 22:00] VITALS: BP 104/69
[2020-08-07] MEDS: KCL 40MEQ in NS 1000ML 1,000 ML IV SCH (02:56)
[2020-08-07 06:00] VITALS: BP 102/68
[2020-08-07 06:24] LABS: HEMATOCRIT 33.2 % (36.0-47.0); HEMOGLOBIN 11.3 g/dl (12.0-15.5); MEAN CORPUSCULAR HEMOGLOBIN 33.1 pg (27.0-33.0); MEAN CORPUSCULAR VOLUME 97.4 fl (80.0-96.0); PLATELET COUNT, AUTOMATED 408 10^3/uL (150-450); RED BLOOD COUNT 3.41 10^6/uL (4.00-5.40)
[2020-08-07 06:55] LABS: BLOOD UREA NITROGEN 3 MG/DL (7-18); CARBON DIOXIDE LEVEL 29 MEQ/L (21-32); CHLORIDE LEVEL 103 MEQ/L (98-107); CREATININE FOR GFR 0.56 MG/DL (0.55-1.30); GLOMERULAR FILTRATION RATE > 60.0 (>51); GLUCOSE, FASTING 109 MG/DL (70-100); LIPASE 1233 U/L (73-393); MAGNESIUM LEVEL 1.3 MG/DL (1.8-2.4); SODIUM LEVEL 136 MEQ/L (136-145)
[2020-08-07] MEDS: DOCUSATE SODIUM 100MG CAPSULE PO SCH (09:00)
[2020-08-07] MEDS ORDERED: MAGNESIUM OXIDE 400MG TAB (MAG-OX) PO ONE (09:00)
[2020-08-07 11:28] VITALS: BP 110/79
[2020-08-07] MEDS: levETIRAcetam 250MG TABLET (KEPPRA) PO SCH (11:35)
[2020-08-07] MEDS: NS 1,000 ML IV SCH ×2 (11:35→13:28)
[2020-08-07] MEDS: SUCRALFATE 1 GM TAB PO SCH (11:36)
[2020-08-07] MEDS: oxyBUTYnin *DITROPAN XL* 5 MG TABCR PO SCH (11:36)
[2020-08-07] MEDS: ASCORBIC ACID 500 MG TAB PO SCH (11:36)
[2020-08-07] MEDS: PANTOPRAZOLE 40MG VIAL (C9113 PER 1) IV SCH (11:36)
[2020-08-07 13:30] VITALS: BP 111/79
[2020-08-07 14:00] VITALS: BP 107/75
[2020-08-07 14:02] LABS: MAGNESIUM LEVEL 1.3 MG/DL (1.8-2.4)
[2020-08-07 15:29] LABS: MAGNESIUM LEVEL 1.2 MG/DL (1.8-2.4)
[2020-08-07] MEDS ORDERED: PROT20TA11 PO (16:54)
[2020-08-07] MEDS ORDERED: ZOFR4TAB16 PO (16:54)
--- NOTE | 2020-08-09 06:51 | DS.PDOC ---
Discharge Summary General Date of Admission Aug 05, 2020 at 16:44 Date of Discharge 08/07/2020 Discharge Summary PROCEDURES PERFORMED DURING STAY: [None]. ADMITTING DIAGNOSES: 1. N/V 2. Hyponatremia 3. Hypokalemia DISCHARGE DIAGNOSES: 1. Nausea and vomiting, possible pancreatitis 2. Electrolyte abnormalities, mild 3. Hepatomegaly 4. Hepatic steatosis COMPLICATIONS/CHIEF COMPLAINT: N/V HISTORY OF PRESENT ILLNESS: [This is a 59 y/o female with a pmh of cva x2, seizures, hld, htn, asthma who reports to the ED with a cc of nausea and vomiting x2 weeks. Patient states that her symptoms came on suddenly and believes they may have improved somewhat, but still feels very ill. Patient states that she is vomiting approx 3 times a day and lately has noted some blood in the emesis. Patient states that nothing seems to bring on the episodes of vomiting and they simply happen. Patient states that she thinks her symptoms are partially due to stress because she has been trying to move back home to [place] and has run into issues with that. Patient denies fever, chills, abd pain, constipation, diarrhea, headaches. Patient admits to recent poor oral intake.] HOSPITAL COURSE: Mrs. Engel was admitted for nausea and vomiting with poor oral intake and electrolyte balances and was treated for possible pancreatitis based off of lab values. She never truly experienced abdominal pain but had reflux symptoms with epigastric palpation. By hospital day 1 she was tolerating a regular diet and had resolution of her nausea with PRN zofran and a PPI. She was noted to have a stable/non downtrending lipase during her hospitalization and was monitored for an additional night with no return of her symptoms and no development of abdominal pain. She did endorse some blood in emesis but states that it was more associated with dry heaving and was scant in nature. She has not experienced any emesis since that time. She has been encouraged to follow up with her PCM and a Web Content Writer in her home city of [place], [place] to have an EGD for further workup of this. On day of discharge she continued to have a good appetite and was ambulating within her bedroom. She was given the opportunity to ask questions and ultimately discharged to home with stable vital signs and a benign abdominal exam. Of note she had mild electrolyte disturbances and had repletion of magnesium, sodium, and potassium and was encouraged to take a MVI and follow up with her PCM upon discharge. DISCHARGE MEDICATIONS: Please see below. ALLERGIES: Please see below. PHYSICAL EXAMINATION ON DISCHARGE: VITAL SIGNS: Please see below. GENERAL APPEARANCE: Awake, alert, oriented x 3. NAD HEENT: Atraumatic, normocephalic. Eyes are anicteric. Mucous membranes are moist CARDIOVASCULAR: sinus, regular rhythm, no noted murmurs, rubs or gallops LUNGS: CTAB ABDOMEN: Normoactive sounds, soft, nondistended. No TTP EXTREMITIES: No lower extremity edema, no apparent rashes/petechiae. NEUROLOGICAL: Awake, speech is clear, AOx3, good strength throughout LABORATORY DATA: Please see below. IMAGING: CT ABD: FINDINGS: Liver: There is hepatomegaly and hepatic steatosis. Gallbladder and bile ducts: Gallbladder is distended. No gallbladder wall calculi or biliary duct dilation. Pancreas: Normal. No ductal dilation. Spleen: Normal. No splenomegaly. Adrenal glands: Normal. No mass. Kidneys and ureters: Unremarkable. No calculi or hydronephrosis. Stomach and bowel: There is colonic diverticulosis without evidence of diverticulitis. The small bowel is unremarkable. No bowel obstruction. Appendix: No evidence of appendicitis. Intraperitoneal space: No free air. No significant fluid collection. Vasculature: Unremarkable. No abdominal aortic aneurysm. Lymph nodes: Unremarkable. No enlarged lymph nodes. Urinary bladder: Unremarkable as visualized. Reproductive: Unremarkable as visualized. Bones/joints: There are degenerative changes in the spine and pelvis. Soft tissues: Unremarkable. IMPRESSION: 1. Hepatic steatosis and hepatomegaly. 2. Colonic diverticulosis without evidence of diverticulitis. 3. Distended gallbladder without secondary signs of cholecystitis. Consider gallbladder ultrasound follow-up if there is concern for acute cholecystitis. CT Head: FINDINGS: Brain: The brain demonstrates mild generalized volume loss, prominent for age. No hemorrhage or edema seen. Cerebral ventricles: The ventricles are prominent, stable compared to the prior study. Paranasal sinuses: Visualized sinuses are unremarkable. No fluid levels. Mastoid air cells: Visualized mastoid air cells are well aerated. Bones/joints: Unremarkable. No acute fracture. Soft tissues: Unremarkable. IMPRESSION: 1. No acute intracranial abnormality seen. 2. Ventricular enlargement is again demonstrated which may reflect volume loss though a component of normal pressure hydrocephalus is possible. US Gallbladder FINDINGS: Liver: Liver is echogenic. No liver masses. Gallbladder: Gallbladder is distended. Layering sludge in the gallbladder lumen. No gallbladder wall thickening or pericholecystic fluid. Common bile duct: Normal. No stones. No biliary duct dilation. Pancreas: Visualized pancreas is unremarkable. Right kidney: Normal. No mass. No hydronephrosis. IMPRESSION: 1. Distended gallbladder with intraluminal sludge. No signs of acute cholecystitis or biliary duct dilation. 2. Hepatic steatosis. PROGNOSIS: [good] ACTIVITY: [As tolerated]. DIET: [regular] DISCHARGE PLAN: Follow up with your primary care provider within 1 week to discuss scheduling EGD with gastroenterology Return to the ED if you develop abdominal pain, inability to tolerate food, fevers, or any other acute medical concerns DISPOSITION: 01 Home, Self-Care. ITEMS TO FOLLOWUP ON ON OUTPATIENT: 1. Hepatic steatosis 2. BMP and electrolyte panel DISCHARGE CONDITION: [Stable]. TIME SPENT ON DISCHARGE: Greater than 30 minutes. Vital Signs/I&Os Vital Signs Date Time Temp Pulse Resp B/P (MAP) Pulse Ox O2 Delivery O2 Flow Rate FiO2 08/07/20 14:00 98.2 95 20 107/75 (86) 93 Room Air Microbiology Microbiology 08/06/20 Blood Culture - Preliminary, Resulted No Growth after 72 hours. All specime... Discharge Medications Scheduled Amlodipine Besylate (Amlodipine Besylate) 10 Mg Tablet, 10 MG PO DAILY, (Reported) Ascorbic Acid (Vitamin C) 500 Mg Tablet, 500 MG PO DAILY, (Reported) Cholecalciferol (Vitamin D3) (Vitamin D3) 1,000 Unit Tablet, 1,000 UNITS PO DAILY, (Reported) Cyanocobalamin (Vitamin B-12) (Vitamin B-12) 1,000 Mcg Tablet, 1,000 MCG PO DAILY, (Reported) Levetiracetam (Levetiracetam) 750 Mg Tablet, 750 MG PO BID, (Reported) Ondansetron HCl (Zofran) 4 Mg Tablet, 4 MG PO TID Oxybutynin Chloride (Oxybutynin Chloride ER) 10 Mg Tab.er.24, 10 MG PO DAILY, (Reported) Pantoprazole Sodium (Protonix) 20 Mg Tablet.dr, 20 MG PO DAILY Allergies Coded Allergies: latex (Verified Allergy, Intermediate, rash, 01/31/19) soap (Verified Allergy, Intermediate, TIDE - RASH, 08/06/20) JALEN BETANCUR MD [facility] Aug 09, 2020 06:51
== END 2020-08-07 17:55 | disposition home or self-care (01) ==
LOC: M ED 16:43 → M ED INP 16:44 → ENRESERV 22:19 → M MSPAV 23:43
PROVIDERS: ADMIT Internal Medicine; ATTEND General Practice
DX: R11.2 Nausea with vomiting, unspecified (principal); R65.10 Systemic inflammatory response syndrome (SIRS) of non-infectious origin without acute organ dysfunction; E87.6 Hypokalemia; E87.1 Hypo-osmolality and hyponatremia; I10 Essential (primary) hypertension; E78.49 Other hyperlipidemia; J45.909 Unspecified asthma, uncomplicated; G40.909 Epilepsy, unspecified, not intractable, without status epilepticus; N32.81 Overactive bladder; Z91.040 Latex allergy status; F32.9 Major depressive disorder, single episode, unspecified; K76.0 Fatty (change of) liver, not elsewhere classified; F12.10 Cannabis abuse, uncomplicated
CPT/HCPCS: 36415; 70450; 74177; 76705; 80048; 80053; 80076; 80307; 81001; 82077; 82977; 83605; 83690; 83735; 83930; 83935; 83970; 84300; 84443; 85025; 85027; 86705; 86709; 86803; 87040; 87340; 87631; 90471; 90682; 93005; 96361; 96374; 96376; 99285; C9113; G0378; Q9967